=== PATIENT | male | born 1950 | race Two or more races ===

== ENCOUNTER 2021-05-08 10:59 | Inpatient (IN) | payer OTHER, SELFPAY ==
[~2021-05-08] VITALS: Ht 177.8 cm; Wt 96.6 kg
--- NOTE | 2021-05-08 11:05 | NUR ---
BLOOD DRAWN AND SENT TO LAB.
--- NOTE | 2021-05-08 11:10 | NUR ---
AT BEDSIDE FOR DEMETRA.
[2021-05-08] MEDS ORDERED: FUROSEMIDE 40 MG/4 ML VIAL ONE (11:13)
[2021-05-08 11:22] LABS: BASOPHILS # (AUTO) 0.2 K/uL (0.0-0.2); BASOPHILS % (AUTO) 1.8 % (0.0-2.0); EOSINOPHILS % (AUTO) 0.1 % (0.0-6.0); LYMPHOCYTES # (AUTO) 0.4 K/uL (0.8-4.8); MEAN CORPUSCULAR HGB CONC 33 g/dl (31.0-36.0); MEAN CORPUSCULAR VOLUME 85 fL (80-96); MONOCYTES # (AUTO) 0.7 K/uL (0.1-1.30); MONOCYTES % (AUTO) 6.7 % (2.0-12.0); NEUTROPHILS # (AUTO) 9.1 K/uL (1.8-8.9); NEUTROPHILS % (AUTO) 87.4 % (43.0-81.0); PLATELET COUNT (AUTO) 220 K/uL (150-450); RED BLOOD CELL COUNT(AUTO) 7.14 MIL/uL (4.5-6.0); WHITE BLOOD COUNT (AUTO) 10.4 K/uL (4.3-11.0)
[2021-05-08] MEDS ORDERED: DILTIAZEM HCL 25 MG IV ONE (11:24)
--- NOTE | 2021-05-08 11:29 | NUR ---
MEDICATED PER ERMD ORDER, PT DANIELLA WELL. ON TELE AFIB. WILL CONT TO MONITOR.
[2021-05-08] MEDS ORDERED: FUROSEMIDE 40 MG/4 ML VIAL IV ONE (11:30)
[2021-05-08] MEDS ORDERED: DILTIAZEM HCL 50 MG IV IV ONE ×2 (11:30→12:00)
[2021-05-08 11:37] LABS: HEMOGLOBIN 19.7 g/dL (13.5-17.5)
[2021-05-08 11:38] LABS: HEMATOCRIT 61 % (39-51)
[2021-05-08 11:50] LABS: ABG BASE EXCESS -2.9 mmol/L; ABG PCO2 22.1 mmHg (35.0-45.0); ABG PH 7.503 (7.350-7.450); ABG PO2 267.7 mmHg (75.0-100.0); MetHb 0.7 % (0.0-1.5); O2Hb 98.7 % (94.0-97.0); SITE, ABG Right Radial; VENT MODE, BG NRB 15L 100%
[2021-05-08 11:58] LABS: CALCIUM, SERUM 8.6 mg/dL (8.5-10.1); CARBON DIOXIDE 21 mmol/L (21-32); CHLORIDE 97 mmol/L (98-107); CREATININE 1.4 mg/dL (0.6-1.3); GLUCOSE 132 mg/dL (74-106); POTASSIUM 5.6 mmol/L (3.5-5.1); SODIUM SERUM 131 mmol/L (136-145); UREA NITROGEN, BLOOD 33 mg/dL (7-18)
[2021-05-08 12:10] LABS: ALANINE AMINOTRANSFERASE 27 U/L (12-78); ALBUMIN 2.8 g/dL (3.4-5.0); ALKALINE PHOSPHATASE 112 U/L (46-116); ASPARTATE AMINOTRANSFERASE 56 U/L (15-37); BILIRUBIN,DIRECT 1.7 mg/dL (0.0-0.2); BILIRUBIN,TOTAL 3.9 mg/dL (0.2-1.0); TOTAL PROTEIN, SERUM 6.6 g/dL (6.4-8.2)
[2021-05-08] MEDS ORDERED: ZOLPIDEM TARTRATE 5 MG TABLET PO PRN (13:00)
[2021-05-08] MEDS ORDERED: Z GUARD REMEDY 2 OZ OINT TP PRN (13:00)
[2021-05-08] MEDS ORDERED: ONDANSETRON HCL/PF 4 MG/2 ML VIAL IVP PRN (13:00)
[2021-05-08] MEDS ORDERED: MAGNESIUM HYDROXIDE 30 ML UDC PO PRN (13:00)
[2021-05-08] MEDS ORDERED: ASPIRIN EC 81 MG TABLET.DR PO ONE (13:00)
[2021-05-08] MEDS ORDERED: ACETAMINOPHEN 325 MG TABLET PO PRN (13:00)
[2021-05-08] MEDS ORDERED: MAG HYDROX/AL HYDROX/SIMETH 30 ML UDC PO PRN (13:00)
[2021-05-08 13:36] LABS: BAND % (MANUAL) 2 % (0.0-5.0); LYMPHOCYTES % (MANUAL) 9 % (16-48); MONOCYTES % (MANUAL) 5 % (0-11.0); NEUTROPHILS % (MANUAL) 84 (42-76)
--- NOTE | 2021-05-08 13:41 | NUR ---
PT SITTING UP, PT STS THAT HE FEELS A LOT BETTER. DENIES CP, DIZZINESS, N/V AT THIS TIME. WILL CONT TO MONITOR.
[2021-05-08] MEDS ORDERED: PIPERACILLIN /TAZOBACTAM 3.375 G in IV D5W 50 ML IV SCH (14:30)
--- NOTE | 2021-05-08 14:34 | NUR ---
COVID PCR COLLECTED AND SENT TO LAB
--- NOTE | 2021-05-08 15:31 | NUR ---
PT ASLEEP, EASILY AWAKEN BY VERBAL STIMULI. DENIES CP, SOB, DIZZINESS, N/V AT THIS TIME. WILL CONT TO MONITOR.
--- NOTE | 2021-05-08 15:53 | NUR ---
ROOM 106
[2021-05-08 16:00] VITALS: BP 173/88
--- NOTE | 2021-05-08 16:26 | NUR ---
REPORT GIVEN TO COSTA BENSON FOR IRENE
[2021-05-08] MEDS: PIPERACILLIN /TAZOBACTAM 3.375 G in IV D5W 50 ML IV SCH (18:10)
--- NOTE | 2021-05-08 18:26 | NUR ---
RN NOTE RECEIVE REPORT FROM ED NURSE Addendum: 05/08/21 at 1827 by PATRICE PRESTON RN RECEIVE REPORT FROM ED NURSE AT 1646. PATIENT IN STABLE CONDITION WITH NO SIGN OF DISTRESS. WILL CONTINUE TO MONITOR
--- NOTE | 2021-05-08 19:16 | NUR ---
RN CLOSING NOTE PATIENT HAVE BEEN IN STABLE CONDITION AT FROM TIME OF ADMISSION TO THE UNIT. TELE BOX WAS PLACED ON THE PATIENT AND CONFIRM PROPER FUNCTION AND READING WITH TAILOR WOMEN'S GARMENT ALTERATION. PATIENT AMBULATE AND USE URINAL. PATIENT HAVE SHORTNESS OF BREATH. ON 6L/MIN VIA NC. O2 SAT IS 95% AND ABOVE. PROPER ISOLATION PRECAUTION IN PLACE. ALL SAFETY MEASURE IN PLACE. BED ON LOWEST POSITION WITH HOB ELEVATED AND 3 SIDE RAIL UP. CALL LIGHT WITHIN REACH. REPORT WAS GIVEN TO END POLISHER NURSE.
--- NOTE | 2021-05-08 19:35 | NUR ---
RN OPENING NOTE RECEIVED PATIENT RESTING IN BED WITH NO DISTRESS OR DISCOMFORT.PATIENT IS A/O X 4 AND COOPERATIVE. PATIENT ON 6L 02 VIA NC SATURATING AT 97%. PATIENT ON TELE MONITORING, A FIB, WITH HR OF 95. ALL ISOLATION PRECAUTIONS HAVE BEEN TAKEN. ALL SAFETY MEASURE IN PLACE. BED IN LOWEST POSITION WITH HOB ELEVATED AND 3 SIDE RAIL UP. CALL LIGHT WITHIN REACH, AND BED ALARM ON.
[2021-05-08 20:00] VITALS: BP 147/95
--- NOTE | 2021-05-08 23:12 | NUR ---
RN NOTES NOTIFIED ONCALL MD (DR. TALAMANTES) DISCUSSED ABOUT PT'S CURRENT STATUS; AFIB SUSTAINING >120S HR, ADVISED ABOUT MEDS GIVEN IN ER AND CARDIO CONSULT TO BE DONE BY DR. SEAMAN (NOT YET SEEN). ORDER GIVEN :DILTIAZEM 60MG Q6H PO. AERONAUTICAL ENGINEERING OFFICER MADE AWARE. WILL CARRY OUT ORDER.
[2021-05-09] VITALS: BP 136/101
[2021-05-09] MEDS: PIPERACILLIN /TAZOBACTAM 3.375 G in IV D5W 50 ML IV SCH ×4 (00:30→17:17)
[2021-05-09] MEDS: DILTIAZEM HCL 30 MG TABLET PO SCH ×3 (00:41→12:22)
[2021-05-09 04:00] VITALS: BP 155/91
--- NOTE | 2021-05-09 06:19 | NUR ---
RN CLOSING NOTE PATIENT REMAINS IN BED RESTING, WITH NO DISTRESS OR DISCOMFORT.PATIENT IS A/O X 4 AND COOPERATIVE.ON 6L 02 VIA NC SATURATING AT 97%. PATIENT ON TELE MONITORING, A FIB, WITH HR OF 111. ALL ISOLATION PRECAUTIONS HAVE BEEN TAKEN. ALL SAFETY MEASURE IN PLACE, CALL LIGHT WITHIN REACH, BED ALARM ON, BED IN LOWEST POSITION WITH HOB ELEVATED AND 3 SIDE RAIL UP. ALL PATIENT NEEDS MET THROUGHOUT THE SHIFT. WILL ENDORSE PATIENT CARE TO ONCOMING MORNING NURSE.
[2021-05-09 07:10] LABS: BASOPHILS # (AUTO) 0.1 K/uL (0.0-0.2); BASOPHILS % (AUTO) 0.6 % (0.0-2.0); HEMATOCRIT 55 % (39-51); HEMOGLOBIN 18.6 g/dL (13.5-17.5); LYMPHOCYTES # (AUTO) 0.6 K/uL (0.8-4.8); LYMPHOCYTES % (AUTO) 5.4 % (20.0-44.0); MEAN CORPUSCULAR HGB CONC 34 g/dl (31.0-36.0); MEAN CORPUSCULAR VOLUME 84 fL (80-96); MONOCYTES # (AUTO) 0.7 K/uL (0.1-1.30); MONOCYTES % (AUTO) 6.7 % (2.0-12.0); NEUTROPHILS # (AUTO) 9.3 K/uL (1.8-8.9); NEUTROPHILS % (AUTO) 87.3 % (43.0-81.0); PLATELET COUNT (AUTO) 203 K/uL (150-450); RED BLOOD CELL COUNT(AUTO) 6.57 MIL/uL (4.5-6.0); WHITE BLOOD COUNT (AUTO) 10.7 K/uL (4.3-11.0)
--- NOTE | 2021-05-09 07:30 | NUR ---
RN NOTE REPORT REC'D AT BEDSIDE. PT IN BED AWAKE,A/OX4. IN NO ACUTE DISTRESS. ON 6LPM VIA NC SATURATING WELL. IV TO LAC INTACT AND PATENT. NO S/SX OF INFILTRATION NOTED. TELE MONITOR READS AFIB 110. ISOLATION AND SAFETY PRECAUTIONS OBSERVED. WILL MONITOR FOR ANY CHANGE IN CONDITION OTHERWISE PT DENIES ANY NEED AT THIS TIME.
[2021-05-09 07:50] LABS: CALCIUM, SERUM 8.2 mg/dL (8.5-10.1); CARBON DIOXIDE 24 mmol/L (21-32); CHLORIDE 95 mmol/L (98-107); CREATININE 1.5 mg/dL (0.6-1.3); GLUCOSE 87 mg/dL (74-106); MAGNESIUM 2.1 mg/dL (1.8-2.4); POTASSIUM 4.6 mmol/L (3.5-5.1); SODIUM SERUM 130 mmol/L (136-145); UREA NITROGEN, BLOOD 37 mg/dL (7-18)
[2021-05-09 08:00] VITALS: BP 133/89
[2021-05-09] MEDS: ASPIRIN 81 MG TAB.CHEW PO SCH (08:05)
[2021-05-09 12:00] VITALS: BP 152/90
[2021-05-09] MEDS ORDERED: FUROSEMIDE 20 MG/2 ML VIAL IV SCH (14:00)
--- NOTE | 2021-05-09 14:00 | NUR ---
RN NOTE PATIENT SEEN BY HOA CHACON, UPDATED REGARDING PATIENT CURRENT CONDITION.
[2021-05-09] MEDS: VANCOMYCIN 1.25 GM in IV D5W 250 ML IV SCH (14:25)
[2021-05-09 16:00] VITALS: BP 138/63
[2021-05-09] MEDS: METOPROLOL TARTRATE 50 MG TABLET PO SCH ×2 (17:17→21:00)
[2021-05-09] MEDS: APIXABAN 5 MG TABLET PO SCH (17:18)
--- NOTE | 2021-05-09 18:31 | NUR ---
RN NOTE PT'S CONDITION REMAINS THE SAME. AWAKE,ALERT/OX2. STILL ON 6 LPM O2 VIA NC. REMINDS PT NOT TO TAKE OFF O2. PATIENT NEEDS FURTHER TEACHING. TELE MONITOR SHOWS UNCONTROLLED AFIB. DUE MEDS GIVEN ORDERED. NEW IV TO LEFT HAND IS PATENT AND INTACT. CALL LIGHT AND TELEPHONE ARE WITHIN REACH. SAFTY MEASURES OBSERVED AT ALL TIME. WILL ENDORSE CARE TO NOC RN.
[2021-05-09] MEDS: LORAZEPAM INJ 2 MG/ML VIAL IV PRN (18:56)
--- NOTE | 2021-05-09 19:30 | NUR ---
RN NOTES RECEIVED PT FOR CONTINUITY OF CARE. PATIENT A/OX1; VERY LETHARGIC. CURRENTLY ON 6L VIA NC; NOTED LABORED BREATHING; 02 SAT IS >92% AT THE TIME OF RECEIVED. WILL ENSURE SAFETY MEASURES WITHIN THE SHIFT. PATIENT BED ALARM IS ON. HEAD OF BED ELEVATED. BED IS LOCKED, IN LOWEST POSITION AND SIDE RAILS UP. CALL LIGHT WITHIN REACH OF THE PATIENT. APPLICABLE ISOLATION PRECAUTIONS IN PLACE. WILL CONTINUE TO MONITOR AND REASSESS FOR ANY CHANGES AND WILL CARRY OUT ANY ONGOING AND ACTIVE MD ORDER.
[2021-05-09 20:00] VITALS: BP 126/79
--- NOTE | 2021-05-09 20:05 | NUR ---
RN NOTES CALLED LAB AND SPOKE WITH JACY AND F/U FOR COVID RESULT; HE SAID NO RESULT YET. MIGHT BE OUT BY TUESDAY. ABG RESULT OUT FROM RT; SENT TO [facility] (DR.TIM TALAMANTES). RT BUMPED UP O2 FROM 8 TO 10L VIA SIMPLE MASK. SUCTIONING RENDERED. AWAITING FOR CXR RESULT. [facility] (DR. TALAMANTES NOTIFIED) MD ORDERED: BIPAP TITRATION PER RT. RN ACKNOWLEDGED. PRINCIPAL IOS DEVELOPER MADE AWARE. WILL CARRY OUT MD ORDER.
--- NOTE | 2021-05-09 20:45 | NUR ---
RN NOTES NOTED PT'S BREATHING TO BE LABORED 02 SAT AT THIS TIME FLUCTUATES BETWEEN 88-90%; PT SWITCHED FROM NC TO SIMPLE MASK WITH 8L O2. STILL NOTED LABORED BREATHING FROM PT. WILL CONTINUE TO MONITOR AND ASSESS AND WILL NOTIFY [facility] FOR ANY SIGNIFICANT CHANGES. Addendum: 05/09/21 at 2219 by NAKUL LICEA RN @2055 ACCU CHECK DONE - 115MG/DL
--- NOTE | 2021-05-09 21:27 | NUR ---
RN NOTES SCHEDULED LOPRESSOR 50MG NOTGIVEN; PT LETHARGIC RISK FOR ASPIRATION AND WONT BE ABLE TO TOLERATE PO. SOLUTION CONSULTANT MADE AWARE AND MD AWARE.
--- NOTE | 2021-05-09 21:28 | NUR ---
RN NOTES NOTIFIED ONCALL MD ( DR. EMA TALAMANTES) OF CURRENT STATUS OF PT ; PT LETHARGIC, LABORED BREATHING [address] TALAMANTES ORDERED STAT ABG, STAT CXR AND F/U ON COVID RESULT. FAMILY SUPPORT WORKER MADE AWARE, WILL CARRY OUT MD ORDER
[2021-05-09 21:55] LABS: ABG BASE EXCESS -5.2 mmol/L; ABG OXYGEN SATURATION 93.3 % (92.0-98.5); ABG PCO2 46.2 mmHg (35.0-45.0); ABG PH 7.288 (7.350-7.450); ABG PO2 75.8 mmHg (75.0-100.0); AaDO2 243.2 mmHg; COHb 0.3 % (0.5-1.5); MetHb 0.4 % (0.0-1.5); O2Hb 92.6 % (94.0-97.0); SITE, ABG Right Brachial; VENT MODE, BG SIMPLE MASK
--- NOTE | 2021-05-09 23:15 | NUR ---
RN NOTES [facility] (DR. TALAMANTES) F/U FOR CXR RESULT;NO RESULT YET. IMAGE READY BUT NOT YET INTERPRETED. SENT TO [facility] CXR IMAGE AND DR. EMA TALAMANTES ORDERED: BUMEX INJ 1MG/4ML (2MG/8ML) ONCE AND BUMEX 1MG/4M IV IN NS 100ML @10ML/HR AND PLACEMENT OF F/C. BOAT OUTFITTER MADE AWARE. WILL CARRY OUT MD ORDER.
[2021-05-09] MEDS ORDERED: BUMETANIDE INJ 4 MG in IV NS 0.9% 24 ML IV ONE (23:30)
[2021-05-09] MEDS ORDERED: BUMETANIDE INJ 0.25 MG/ML VIAL IV ONE (23:30)
[2021-05-09] MEDS ORDERED: BUMETANIDE INJ 0.25 MG/ML VIAL ONE ×2 (23:34→23:39)
--- NOTE | 2021-05-09 23:45 | NUR ---
RN NOTES NEW IV ACCESS INSERTED @ R HAND #22; SECURED, PATENT AND FLUSHING WELL. STEEPLECHASE JOCKEY MADE AWARE.
[2021-05-10] VITALS: BP 114/68
[2021-05-10] MEDS: PIPERACILLIN /TAZOBACTAM 3.375 G in IV D5W 50 ML IV SCH ×4 (00:07→17:02)
[2021-05-10] MEDS: VANCOMYCIN 1.25 GM in IV D5W 250 ML IV SCH (02:45)
--- NOTE | 2021-05-10 03:29 | NUR ---
RT NOTES Pt has been removed from Bipap. Pt saturating 98 % and s.o.b has subsided. Pt placed back on 8 L simple mask. COSTA Lora notified of change. Pt is currently stable.
--- NOTE | 2021-05-10 03:30 | NUR ---
COSTA NOTES PT SWITCHED BACK TO SIMPLE MASK WITH 8L OF 02 FROM BIPAP DONE BY RT. PT IN STABLE STATUS WITH 02 SAT >95% AT THIS TIME. WILL CONTINUE TO MONITOR AND ASSESS THROUGHOUT THE SHIFT. ALVAREZ SKELTON MADE AWARE. Addendum: 05/10/21 at 0517 by NAKUL LICEA RN INFORMED [facility] (DR. EMA TALAMANTES) THAT ABOUT PT CURRENT STATUS ON SIMPLE MASK SAT >95%; PT STARTS TO REMOVED LINES AND IV ACCESS [facility] ORDERED: SOFT RESTRAINTS AND STAT ABG. ALVAREZ SKELTON MADE AWARE. WILL CARRY OUT ORDER. WILL CONTINUE TO ASSESS AND MONITOR . Addendum: 05/10/21 at 0607 by NAKUL LICEA RN 0600- ABG RESULT CAME OUT; [facility] INFORMED (DR. EMA TALAMANTES) MD ORDERED TO PLACE PT BACK TO BIPAP. RT INFORMED AND ALVAREZ SKELTON MADE AWARE. RT CONNECTED PT TO BIPAP.
[2021-05-10 04:00] VITALS: BP_SYST 114; BP_SYST 145; BP_DIAS 68; BP_DIAS 92
--- NOTE | 2021-05-10 05:10 | NUR ---
RN NOTES ATTEMPTED TO INSERT SEBASTIAN CATH PER MD ORDER; PT SCREAMS SAYING "NO" PT REFUSES. PT STARTED TO BE MORE ALERT AND ORIENTED; SATURATION >96% IN 8L OF 02 VIA SIMPLE MASK. EXPLAINED RISK AND BENEFITS BUT PT STILL REFUSED. RN ACKNOWLEDGED AND QUALITY PROJECT MANAGER MADE AWARE.
[2021-05-10 05:55] LABS: ABG OXYGEN SATURATION 96.3 % (92.0-98.5); ABG PCO2 51.4 mmHg (35.0-45.0); ABG PH 7.264 (7.350-7.450); ABG PO2 93.4 mmHg (75.0-100.0); AaDO2 219.8 mmHg; COHb 0.3 % (0.5-1.5); MetHb 0.5 % (0.0-1.5); O2Hb 95.5 % (94.0-97.0); SITE, ABG Left Radial; VENT MODE, BG SIMPLE MASK
--- NOTE | 2021-05-10 06:47 | NUR ---
RN CLOSING NOTE: PATIENT REMAINS IN ROOM IN NO SIGNS OF RESPIRATORY DISTRESS, PATIENT CURRENTLY ON BIPAP, SETTINGS PRESCRIBED;TOLERATING WELL SATURATING @ >95% SP02. SAFETY MEASURES IMPLEMENTED, BED IN LOWEST POSITION, LOCKED, SIDE RAILS UP, CALL LIGHT WITHIN REACH. ALL NEEDS AND ORDERS ADDRESSED DURING THE SHIFT. IV ACCESS MAINTAINED INTACT, SECURED AND FLUSHING WELL. ALL DUE MEDS GIVEN ORDERED & SCHEDULED ; PATIENT TOLERATED WELL. PATIENT KEPT CLEAN AND COMFORTABLE WITHIN THE SHIFT. PATIENT ENDORSED TO INCOMING SHIFT RN WITH STABLE VITAL SIGN AND FOR CONTINUITY OF CARE.
--- NOTE | 2021-05-10 07:30 | NUR ---
TD RN AM NOTE: PATIENT IN BED, RESPONDS TO DEEP PAIN, LETHARGIC, ON RESCUE BIPAP, 18/5 52% FIO2, NOT IN ANY DISTRESS, TOLERATING WELL SATURATING @ >95% SP02. AFIB HR 96, NO SIGNS OF DISCOMFORT, RT H AND IV ACCESS, FLUSHES WELL, SITE CLEAR. CARDIAC DIET. SOFT WRIST RESTRAINT RELEASED AND CHECKED FOR PULSE AND CIRCULATION THEN EVERY 2 HOURS. SEE NURSING FLOWSHEET FOR SKIN ISSUES. SAFETY MEASURES IMPLEMENTED, BED IN LOWEST POSITION, LOCKED, SIDE RAILS UP, CALL LIGHT WITHIN REACH. WILL CONT TO MONITOR.
[2021-05-10 08:00] VITALS: BP 137/70
[2021-05-10] MEDS: METOPROLOL TARTRATE 50 MG TABLET PO SCH (08:33)
[2021-05-10] MEDS: ASPIRIN 81 MG TAB.CHEW PO SCH (08:33)
[2021-05-10] MEDS: APIXABAN 5 MG TABLET PO SCH (08:34)
[2021-05-10 08:38] LABS: BASOPHILS % (AUTO) 0.4 % (0.0-2.0); EOSINOPHILS % (AUTO) 0.1 % (0.0-6.0); HEMATOCRIT 51 % (39-51); HEMOGLOBIN 17.2 g/dL (13.5-17.5); LYMPHOCYTES # (AUTO) 0.6 K/uL (0.8-4.8); LYMPHOCYTES % (AUTO) 6.5 % (20.0-44.0); MEAN CORPUSCULAR HGB CONC 34 g/dl (31.0-36.0); MEAN CORPUSCULAR VOLUME 84 fL (80-96); MONOCYTES # (AUTO) 0.7 K/uL (0.1-1.30); MONOCYTES % (AUTO) 8.6 % (2.0-12.0); NEUTROPHILS # (AUTO) 7.1 K/uL (1.8-8.9); NEUTROPHILS % (AUTO) 84.4 % (43.0-81.0); PLATELET COUNT (AUTO) 166 K/uL (150-450); RED BLOOD CELL COUNT(AUTO) 6.04 MIL/uL (4.5-6.0); WHITE BLOOD COUNT (AUTO) 8.4 K/uL (4.3-11.0)
[2021-05-10] MEDS ORDERED: FUROSEMIDE 40 MG/4 ML VIAL IV SCH (09:00)
--- NOTE | 2021-05-10 09:20 | NUR ---
TD RN NOTES DR. MASON NOTIFIED PATIENT POSITIVE FOR COVID AND IS ON RESCUE BIPAP 18/5 52% FIO2. IF PATIENT COULD BE TRANSFERRED TO ICU.
[2021-05-10 09:22] LABS: CALCIUM, SERUM 7.7 mg/dL (8.5-10.1); CARBON DIOXIDE 22 mmol/L (21-32); CHLORIDE 95 mmol/L (98-107); CREATININE 2.8 mg/dL (0.6-1.3); GLUCOSE 99 mg/dL (74-106); POTASSIUM 4.3 mmol/L (3.5-5.1); SODIUM SERUM 128 mmol/L (136-145); UREA NITROGEN, BLOOD 53 mg/dL (7-18)
--- NOTE | 2021-05-10 10:21 | NUR ---
TD RN NOTES DR. MASON NOTIFIED PATIENT POSITIVE FOR COVID AND IS ON RESCUE BIPAP 18/5 52% FIO2. PER HOA CHACON, TRANSFER PATIENT TO ICU. PER DR. MASON, CHANGE TO NON REBREATHER MASK.
[2021-05-10 10:38] LABS: FERRITIN 3729 ng/mL (8-388)
--- NOTE | 2021-05-10 10:46 | NUR ---
RN NOTES PATIENT EVALUATED BY ICU CHARGE - AALIYAH, DISCUSSED WITH HOA CHACON KILN PACKER, PATIENT IS PLACED ON MASK, HOLDING ON ACCORDING TO ICU CHARGE, CANCEL ICU TRANSFER FOR NOW.
--- NOTE | 2021-05-10 10:52 | NUR ---
TD RN NOTES PATIENT AWAKE, PLACED ON NON REBREATHER MASK AT15L FI02 100%.
[2021-05-10] MEDS: DEXAMETHASONE SOD PHOSPHATE 10 MG/ML VIAL IV SCH (11:27)
[2021-05-10 11:28] LABS: ABG BASE EXCESS -3.1 mmol/L; ABG PO2 187.8 mmHg (75.0-100.0); AaDO2 482.2 mmHg; COHb 0.3 % (0.5-1.5); MetHb 0.6 % (0.0-1.5); O2Hb 98.1 % (94.0-97.0); SITE, ABG Right Radial; VENT MODE, BG NON REBREATHER
[2021-05-10 12:00] VITALS: BP 119/77
--- NOTE | 2021-05-10 12:10 | NUR ---
RN NOTES PATIENT CONTINUES TO REFUSE SEBASTIAN CATH. PLACED CONDOM CATHETER INSTEAD.
[2021-05-10] MEDS: METOPROLOL TARTRATE INJ 5 MG/5 ML AMPUL IVP SCH ×2 (14:11→21:20)
[2021-05-10 16:00] VITALS: BP 134/76
--- NOTE | 2021-05-10 18:39 | NUR ---
TD RN CLOSING NOTE: PATIENT IN BED, ASLEEP, RESPONDS TO NAME AND TOUCH, MORE AWAKE NOW. REMAINS LETHARGIC, ON NRM 15L FIO2 100%, NOT IN ANY DISTRESS, TOLERATING WELL SATURATING @ 92-97%. AFIB HR 9Os, DR. SEAMAN AWARE. NO SIGNS OF DISCOMFORT, RT H AND IV ACCESS, FLUSHES WELL, SITE CLEAR. 1:1 FEEDER, ICE CHIPS FOR NOW. SOFT WRIST RESTRAINT RELEASED AND CHECKED FOR PULSE EVERY 2 HOURS. PM CARE DONE, TURNED AND REPOSITIONED Q2 HOURS. HOB ELEVATED 30DEG AT ALL TIMES. ISOLATION PRECAUTION OBSERVED. SAFETY MEASURES IMPLEMENTED, BED IN LOWEST POSITION, LOCKED, SIDE RAILS UP, CALL LIGHT WITHIN REACH. ALL NEEDS MET AT THIS TIME. NO OTHER SIGNIFICANT CHANGE IN CONDITION. WILL ENDORSE TO NEXT SHIFT FOR IRENE.
[2021-05-10 20:00] VITALS: BP 114/84
[2021-05-10] MEDS: HEPARIN SODIUM, PORCINE 5000 UNITS/1 ML VIAL SQ SCH (21:21)
[2021-05-11] VITALS: BP 134/69
[2021-05-11] MEDS ORDERED: VANCOMYCIN 1.25 GM in IV D5W 250 ML IV SCH (02:00)
[2021-05-11] MEDS: METOPROLOL TARTRATE INJ 5 MG/5 ML AMPUL IVP SCH ×4 (02:05→21:11)
[2021-05-11] MEDS ORDERED: SCOPOLAMINE PATCH 1 MG/72HR TD ONE ×2 (03:38→03:39)
[2021-05-11] MEDS ORDERED: METOCLOPRAMIDE HCL 10 MG/2 ML VIAL ONE (03:39)
[2021-05-11 04:00] VITALS: BP 113/68
[2021-05-11] MEDS: PIPERACILLIN /TAZOBACTAM 3.375 G in IV D5W 50 ML IV SCH ×3 (05:18→11:08)
[2021-05-11 07:14] LABS: BASOPHILS % (AUTO) 0.2 % (0.0-2.0); EOSINOPHILS % (AUTO) 0.1 % (0.0-6.0); HEMATOCRIT 53 % (39-51); HEMOGLOBIN 17.9 g/dL (13.5-17.5); LYMPHOCYTES # (AUTO) 0.5 K/uL (0.8-4.8); LYMPHOCYTES % (AUTO) 4.3 % (20.0-44.0); MEAN CORPUSCULAR HGB CONC 34 g/dl (31.0-36.0); MEAN CORPUSCULAR VOLUME 84 fL (80-96); MONOCYTES # (AUTO) 0.8 K/uL (0.1-1.30); NEUTROPHILS # (AUTO) 9.5 K/uL (1.8-8.9); NEUTROPHILS % (AUTO) 88.4 % (43.0-81.0); PLATELET COUNT (AUTO) 182 K/uL (150-450); RED BLOOD CELL COUNT(AUTO) 6.39 MIL/uL (4.5-6.0); WHITE BLOOD COUNT (AUTO) 10.7 K/uL (4.3-11.0)
--- NOTE | 2021-05-11 07:20 | NUR ---
TD RN CLOSING NOTE, PATIENT IN BED, AWAKE AT THIS TIME, ON NRM AT 15LPM, TOLERATED WELL, NO SOB/ACUTE DISTRESS, NOTED, WITH O2 >94% CONTINUE CONTROLLED AFIB IN THE TELE MONITOR WITH HR 70-100s, IV SITE IN LEFT HAND, PATENT AND INTACT, BILATERAL SOFT WRIST RESTRAINT IN PLACED, NO ABNORMALITY NOTED, NO CIRCULATION COMPROMISED, FREQUENT CHECKS DURING THE NIGHT, RELEASED AND CHECKED FOR PULSE EVERY 2 HOURS. PM CARE DONE, HOB ELEVATED ALL TIMES, ISOLATION PRECAUTION FOR COVID OBSERVED, ALL SAFETY MEASURES IN PLACED, BED IN LOWEST POSITION, LOCKED, SIDE RAILS UP X2, CALL LIGHT WITHIN REACH. WILL ENDORSE CONTINUITY OF CARE TO ONCOMING NURSE.C.
--- NOTE | 2021-05-11 07:35 | NUR ---
RN OPENING NOTES; RECEIVED PT IN BED, A/OX2-3. PT HAS NO SOB OR DISTRESS NOTED AT THIS TIME. PT HAS NO C/O PAIN AT THIS TIME. PT ON NRB AT 15L SATING AT 98%. AC #22 NOTED, FLUSHED, PATENT, WITH NO SIGNS OF INFILTRATION. ALL SAFETY MEASURES RENDERED, BED IN LOWEST POS. LOCKED, RAILS X3 WITH CALL LIGHT WITHIN REACH. WILL CONTINUE TO MONITOR.
[2021-05-11 07:39] LABS: CALCIUM, SERUM 7.5 mg/dL (8.5-10.1); CARBON DIOXIDE 23 mmol/L (21-32); CHLORIDE 96 mmol/L (98-107); CREATININE 3.6 mg/dL (0.6-1.3); GLUCOSE 129 mg/dL (74-106); POTASSIUM 4.3 mmol/L (3.5-5.1); SODIUM SERUM 131 mmol/L (136-145); UREA NITROGEN, BLOOD 72 mg/dL (7-18)
[2021-05-11 08:00] VITALS: BP 103/70
[2021-05-11] MEDS: ASPIRIN 81 MG TAB.CHEW PO SCH (08:15)
[2021-05-11] MEDS: DEXAMETHASONE SOD PHOSPHATE 10 MG/ML VIAL IV SCH (08:15)
[2021-05-11] MEDS: HEPARIN SODIUM, PORCINE 5000 UNITS/1 ML VIAL SQ SCH (08:15)
[2021-05-11] MEDS: APIXABAN 2.5 MG TABLET PO SCH ×2 (11:55→16:08)
[2021-05-11 12:00] VITALS: BP 125/69
[2021-05-11] MEDS: ENSURE ENLIVE 237 ML LIQUID (VANILLA) PO SCH ×2 (13:52→16:16)
[2021-05-11 16:00] VITALS: BP 105/81
[2021-05-11] MEDS ORDERED: PIPERACILLIN /TAZOBACTAM 3.375 G in IV D5W 100 ML IV SCH (18:00)
--- NOTE | 2021-05-11 18:31 | NUR ---
RN CLOSING NOTES; PT IN BED IN SUPINE POS. PT A/OX2, NO SOB OR DISTRESS NOTED. PT DOWNGRADED TO TELEMETRY. PT HAS NO C/O PAIN AT THIS TIME. PT IS ON NC AT 6LPM, AND TOLERATING WELL. PT SATING AT 94-98%. ALL MEDICATIONS GIVEN AND TOLERATED WELL. PT KEPT CLEAN, DRY AND COMFORTABLE. ALL SAFETY MEASURES RENDERED, BED LOCKED, IN LOWEST POSITION, SIDE RAILS X3, WITH CALL LIGHT WITHIN REACH. WILL ENDORSE TO NETWORKING ADMINISTRATOR RN. NO SIGNIFICANT CHANGES IN PT HEALTH STATUS. PT IN STABLE CONDITION.
[2021-05-11 20:00] VITALS: BP 134/76
[2021-05-11] MEDS ORDERED: CEFEPIME 1 GM VIAL ONE (21:36)
[2021-05-11] MEDS: CEFEPIME 1 GM in IV D5W 50 ML IV SCH (21:40)
[2021-05-12] VITALS: BP 116/75
[2021-05-12] MEDS: METOPROLOL TARTRATE INJ 5 MG/5 ML AMPUL IVP SCH ×4 (02:18→20:30)
[2021-05-12 04:00] VITALS: BP 135/82
--- NOTE | 2021-05-12 06:58 | NUR ---
RN NOTES, PATIENT IN BED, ASLEEP AT THIS TIME, ON 5LPM VIA NC WITH O2 >92%, BUT DESATURATES WHEN MOVEMENT, , NO SOB/ACUTE DISTRESS, NOTED, CONTINUE CONTROLLED AFIB IN THE TELE MONITOR WITH HR 60-90S, NO SIGNIFICANT CHANGE IN CONDITION, HOB ELEVATED ALL TIMES, ISOLATION PRECAUTION FOR COVID OBSERVED, ALL SAFETY MEASURES IN PLACED, BED IN LOWEST POSITION AND LOCKED SIDE RAILS UP X2, CALL LIGHT WITHIN REACH. WILL ENDORSE CONTINUITY OF CARE TO ONCOMING NURSE.
--- NOTE | 2021-05-12 07:25 | NUR ---
RN OPENING NOTES; RECEIVED PT IN BED, A/OX2. PT HAS NO SOB OR DISTRESS NOTED AT THIS TIME. PT HAS NO C/O PAIN AT THIS TIME. PT ON NC @6LPM SATING AT 96%. AC #22 NOTED, FLUSHED, PATENT, WITH NO SIGNS OF INFILTRATION. ALL SAFETY MEASURES RENDERED, BED IN LOWEST POS. LOCKED, RAILS X3 WITH CALL LIGHT WITHIN REACH. WILL CONTINUE TO MONITOR.
[2021-05-12 07:41] LABS: BASOPHILS % (AUTO) 0.2 % (0.0-2.0); HEMATOCRIT 53 % (39-51); HEMOGLOBIN 17.7 g/dL (13.5-17.5); LYMPHOCYTES # (AUTO) 0.7 K/uL (0.8-4.8); LYMPHOCYTES % (AUTO) 5.3 % (20.0-44.0); MEAN CORPUSCULAR HGB CONC 33 g/dl (31.0-36.0); MEAN CORPUSCULAR VOLUME 83 fL (80-96); MONOCYTES # (AUTO) 1.2 K/uL (0.1-1.30); MONOCYTES % (AUTO) 9.3 % (2.0-12.0); NEUTROPHILS # (AUTO) 11.3 K/uL (1.8-8.9); NEUTROPHILS % (AUTO) 85.2 % (43.0-81.0); PLATELET COUNT (AUTO) 180 K/uL (150-450); RED BLOOD CELL COUNT(AUTO) 6.43 MIL/uL (4.5-6.0); WHITE BLOOD COUNT (AUTO) 13.2 K/uL (4.3-11.0)
[2021-05-12 08:00] VITALS: BP 147/90
[2021-05-12 08:30] LABS: ALANINE AMINOTRANSFERASE 288 U/L (12-78); ALKALINE PHOSPHATASE 93 U/L (46-116); ASPARTATE AMINOTRANSFERASE 425 U/L (15-37); BILIRUBIN,DIRECT 1.4 mg/dL (0.0-0.2); CALCIUM, SERUM 7.4 mg/dL (8.5-10.1); CARBON DIOXIDE 24 mmol/L (21-32); CHLORIDE 96 mmol/L (98-107); GLUCOSE 145 mg/dL (74-106); POTASSIUM 4.1 mmol/L (3.5-5.1); SODIUM SERUM 133 mmol/L (136-145); TOTAL PROTEIN, SERUM 5.2 g/dL (6.4-8.2)
[2021-05-12] MEDS: CEFEPIME 1 GM in IV D5W 50 ML IV SCH ×2 (08:32→21:00)
[2021-05-12] MEDS: ASPIRIN 81 MG TAB.CHEW PO SCH (08:33)
[2021-05-12] MEDS: DEXAMETHASONE SOD PHOSPHATE 10 MG/ML VIAL IV SCH (08:34)
[2021-05-12] MEDS: APIXABAN 2.5 MG TABLET PO SCH ×2 (08:34→16:04)
[2021-05-12] MEDS: ENSURE ENLIVE 237 ML LIQUID (VANILLA) PO SCH ×2 (08:35→16:03)
[2021-05-12] MEDS ORDERED: CEFEPIME 1 GM in IV D5W 50 ML IV SCH (09:00)
[2021-05-12] MEDS ORDERED: VANCOMYCIN HCL 0.75 GM in IV D5W 250 ML IV SCH (09:00)
[2021-05-12 09:01] LABS: UREA NITROGEN, BLOOD 91 mg/dL (7-18)
--- NOTE | 2021-05-12 09:34 | NUR ---
RN NOTES; LAB CALLED BUN 91. PADMA CHACON AWARE. DR. LUJAN NOTIFIED.
[2021-05-12 12:00] VITALS: BP 138/74
[2021-05-12] MEDS: LORAZEPAM 0.5 MG TABLET PO PRN (15:23)
[2021-05-12 15:35] LABS: ABG BASE EXCESS -0.1 mmol/L; ABG OXYGEN SATURATION 93.6 % (92.0-98.5); ABG PCO2 38.6 mmHg (35.0-45.0); ABG PH 7.415 (7.350-7.450); ABG PO2 69.5 mmHg (75.0-100.0); AaDO2 200.2 mmHg; COHb 0.2 % (0.5-1.5); MetHb 0.3 % (0.0-1.5); O2Hb 93.1 % (94.0-97.0); SITE, ABG Right Radial; VENT MODE, BG nasal cannula
[2021-05-12 16:00] VITALS: BP 130/70
--- NOTE | 2021-05-12 18:22 | NUR ---
RN CLOSING NOTES PT A/OX1-2. PT IN BED IN SEMI FOWLERS POS. PT HAD EPISODES OF CONFUSION. ABG DONE, WNL. ALL MEDICATIONS GIVEN AND TOLERATED WELL. PT ON 02 VIA NC SATING BETWEEN 90-95%. HUNTER ML #18 INSERTED. PT KEPT CLEAN, DRY AND COMFORTABLE. ALL SAFETY MEASURES RENDERED, BED IN LOWEST POS. LOCKED, BEDRAILS X3 WITH CALL LIGHT WITHIN REACH. WILL ENDORSE TO CERAMIC SAW TENDER RN. NO SIGNIFICANT CHANGES IN PT HEALTH STATUS DURING SHIFT. PT IN STABLE CONDITION.
--- NOTE | 2021-05-12 19:48 | NUR ---
RN OPENING NOTES RECEIVED PATIENT IN BED RESTING, A/OX 2 IN SEMI FOWLERS WITH NO S/S OF DISTRESS OR DISCOMFORT. PATIENT ON O2 VIA NC SATURATING 88%. HUNTER #18 G MIDLINE NOTED, FLUSHED AND PATENT. PATIENT ON COVID ISOLATION PRECAUTIONS, PATIENT ON TELE MONITOR WITH HR OF 92. BED IN LOWEST POSITION, CALL LIGHT WITHIN REACH, SIDE RAILS UP X3 LOCKED, BED ALARM ON.
[2021-05-12 20:00] VITALS: BP 144/82
[2021-05-13] VITALS: BP 147/91
[2021-05-13] MEDS ORDERED: IV NS 0.9% 500 ML IV ONE
[2021-05-13] MEDS: METOPROLOL TARTRATE INJ 5 MG/5 ML AMPUL IVP SCH ×4 (02:41→20:59)
[2021-05-13 02:44] LABS: BILIRUBIN,URINE NEGATIVE (NEGATIVE); COLOR,URINE YELLOW (YELLOW); LEUKOCYTE ESTERASE ,URINE NEGATIVE (NEGATIVE); NITRITE, URINE NEGATIVE (NEGATIVE); PH,URINE 5.5 (5.0-8.0); PROTEIN,URINE NEGATIVE (NEGATIVE); UGLUCOSE NEGATIVE (NEGATIVE); UROBILINOGEN,URINE 0.2 EU/dL (0.2)
[2021-05-13 02:57] LABS: BACTERIA,URINE Few /HPF (None Seen); SQUAMOUS EPITHELIAL CELL,UR Rare /HPF (None Seen)
[2021-05-13 03:06] LABS: CREATININE, URINE 55.5 MG/DL (30.0-125.0); URINE TOTAL PROTEIN 31.9 mg/dL (0-11.9)
[2021-05-13 03:57] LABS: EOSINOPHIL,URINE None Seen
[2021-05-13 04:00] VITALS: BP 158/80
--- NOTE | 2021-05-13 06:03 | NUR ---
RN CLOSING NOTES PATIENT REMAINS IN BED PT IN BED IN SEMI FOWLERS POS. PT HAD EPISODES OF CONFUSION. HAD REMOVED THE HUNTER MIDLINE, HOWEVER LEFT HAND IV ACCESS SITE IS PATENT AND PROPERLY FUNCTIONING. CURRENTLY IV SITE RUNNING 75ML NS PER DR. LEIVA NEW ORDERS. URINE SAMPLE SENT TO LAB PER ORDERS DURING SHIFT. PATIENT REMAINS ON 6 L OF O2 ON NC AND IS SATURATING AT 95%. PATIENT REMAINS ON TELE MONITOR WITH HR OF 94. PATIENT IN NO DISTRESS OR DISCOMFORT. ALL PATIENT NEEDS MET THROUGHOUT THE SHIFT, ALL COVID ISOLATION PRECAUTIONS TAKEN, AND ENVIRONMENTAL SAFETY MEASURES TAKEN.CALL LIGHT WITHIN REACH, BED ALARM ON, BED LOCK, AND SIDE RAILS UP X3.
[2021-05-13 06:28] LABS: BASOPHILS % (AUTO) 0.1 % (0.0-2.0); EOSINOPHILS % (AUTO) 0.1 % (0.0-6.0); HEMATOCRIT 49 % (39-51); HEMOGLOBIN 16.5 g/dL (13.5-17.5); LYMPHOCYTES # (AUTO) 0.5 K/uL (0.8-4.8); LYMPHOCYTES % (AUTO) 4.6 % (20.0-44.0); MEAN CORPUSCULAR HGB CONC 34 g/dl (31.0-36.0); MEAN CORPUSCULAR VOLUME 83 fL (80-96); MONOCYTES # (AUTO) 1.2 K/uL (0.1-1.30); MONOCYTES % (AUTO) 10.4 % (2.0-12.0); NEUTROPHILS # (AUTO) 9.9 K/uL (1.8-8.9); NEUTROPHILS % (AUTO) 84.8 % (43.0-81.0); PLATELET COUNT (AUTO) 137 K/uL (150-450); RED BLOOD CELL COUNT(AUTO) 5.93 MIL/uL (4.5-6.0); WHITE BLOOD COUNT (AUTO) 11.7 K/uL (4.3-11.0)
[2021-05-13 07:30] LABS: CALCIUM, SERUM 7.9 mg/dL (8.5-10.1); CARBON DIOXIDE 26 mmol/L (21-32); CHLORIDE 99 mmol/L (98-107); GLUCOSE 160 mg/dL (74-106); POTASSIUM 4.1 mmol/L (3.5-5.1); SODIUM SERUM 137 mmol/L (136-145)
[2021-05-13 07:44] LABS: UREA NITROGEN, BLOOD 104 mg/dL (7-18)
--- NOTE | 2021-05-13 07:54 | NUR ---
RN OPENING NOTE PATIENT RECEIVED IN BED, RESTING. PATIENT ON 6L O2 NC WITH NO SIGNS OF LABORED BREATHING AT THIS TIME AND SATURATING 93%. LEFT HAND 22G PIV IN PLACE, PATENT WITH NO SIGNS OF INFILTRATION AND RUNNING NS AT 75 CC/HR. NO SIGNS OF DISTRESS NOTED AT THIS TIME. BED LOCKED AND IN LOWEST POSITION, CALL LIGHT WITHIN REACH, 3 SIDE RAILS UP. ALL SAFETY MEASURES IMPLEMENTED. WILL CONTINUE TO MONITOR.
[2021-05-13 08:00] VITALS: BP 148/91
[2021-05-13] MEDS: CEFEPIME 1 GM in IV D5W 50 ML IV SCH ×2 (08:32→21:00)
[2021-05-13] MEDS: DEXAMETHASONE SOD PHOSPHATE 10 MG/ML VIAL IV SCH (08:32)
[2021-05-13] MEDS: ASPIRIN 81 MG TAB.CHEW PO SCH (08:32)
[2021-05-13] MEDS: APIXABAN 2.5 MG TABLET PO SCH ×2 (08:33→16:48)
[2021-05-13] MEDS: ENSURE ENLIVE 237 ML LIQUID (VANILLA) PO SCH ×2 (08:34→16:48)
--- NOTE | 2021-05-13 08:51 | NUR ---
WOUND CARE CONSULT: REVIEWED CHART, NURSING DOCUMENTATION AND PHOTOS WHICH INDICATE MULTIPLE SCRATCH ELIZABETH, SCARS, DISCOLORATIONS AND WOUND TO LEFT LOWER LEG WITH SWELLING/REDNESS, PRESENT ON ADMISSION. DPM CONSULT CALLED TO DR APONTE. RECOMMENDATIONS MADE FOR SKIN PROTECTION. DISCUSSED WITH NURSING STAFF. MD IN AGREEMENT WITH PLAN OF CARE.
--- NOTE | 2021-05-13 11:10 | NUR ---
RN NOTE ELEVATED BUN VALUE REPORTED TO POLISHING MACHINE TENDER AVIVA, NO NEW ORDER AT THIS TIME. WILL CONTINUE TO MONITOR.
[2021-05-13 12:00] VITALS: BP 146/89
[2021-05-13 16:00] VITALS: BP 136/88
--- NOTE | 2021-05-13 18:34 | NUR ---
RN CLOSING NOTE PATIENT REMAINS IN BED, RESTING. PATIENT ON 6L O2 NC WITH NO SIGNS OF LABORED BREATHING AT THIS TIME AND SATURATING 94%. LEFT HAND 22G PIV IN PLACE, PATENT WITH NO SIGNS OF INFILTRATION. NO SIGNS OF DISTRESS NOTED AT THIS TIME. ALL NEEDS ATTENDED DURING SHIFT. BED LOCKED AND IN LOWEST POSITION, CALL LIGHT WITHIN REACH, 3 SIDE RAILS UP. ALL SAFETY MEASURES IMPLEMENTED. WILL ENDORSE TO PAD TUFTER NURSE.
--- NOTE | 2021-05-13 19:35 | NUR ---
RN NOTES RECEIVED PT FOR CONTINUITY OF CARE. PATIENT A/OX3-4 IN NO S/SX OF ACUTE DISTRESS AT THIS TIME; CURRENTLY ON 6L 2 VIA NC; WITH 02 SAT >92% AT THIS TIME. WILL ENSURE SAFETY MEASURES WITHIN THE SHIFT. PATIENT BED ALARM IS ON. HEAD OF BED ELEVATED. BED IS LOCKED, IN LOWEST POSITION AND SIDE RAILS UP. CALL LIGHT WITHIN REACH OF THE PATIENT. APPLICABLE ISOLATION PRECAUTIONS IN PLACE. WILL CONTINUE TO MONITOR AND REASSESS FOR ANY CHANGES AND WILL CARRY OUT ANY ONGOING AND ACTIVE MD ORDER.
[2021-05-13 20:00] VITALS: BP 154/92
[2021-05-13] MEDS: LORAZEPAM INJ 2 MG/ML VIAL IV PRN (23:32)
[2021-05-14] VITALS: BP 153/89
[2021-05-14] MEDS: METOPROLOL TARTRATE INJ 5 MG/5 ML AMPUL IVP SCH ×4 (02:20→20:36)
[2021-05-14 04:00] VITALS: BP 155/91
--- NOTE | 2021-05-14 06:49 | NUR ---
RN CLOSING NOTE: PATIENT REMAINS IN ROOM IN NO SIGNS OF RESPIRATORY DISTRESS, PATIENT STILL ON 6L OF 02 VIA NC;TOLERATING WELL SATURATING @ >92% SP02. SAFETY MEASURES IMPLEMENTED, BED IN LOWEST POSITION, LOCKED, SIDE RAILS UP, CALL LIGHT WITHIN REACH. ALL NEEDS AND ORDERS ADDRESSED DURING THE SHIFT. IV ACCESS MAINTAINED INTACT, SECURED AND FLUSHING WELL. ALL DUE MEDS GIVEN ORDERED & SCHEDULED; PATIENT TOLERATED WELL. PATIENT KEPT CLEAN AND COMFORTABLE WITHIN THE SHIFT. PATIENT ENDORSED TO INCOMING SHIFT RN WITH STABLE VITAL SIGN AND FOR CONTINUITY OF CARE.
[2021-05-14 08:00] VITALS: BP 149/83
--- NOTE | 2021-05-14 08:02 | NUR ---
RN OPENING NOTES: RECEIVED PATIENT IN BED, A/OX3. NO SOB OR DISTRESS NOTED AT THIS TIME. PT HAS NO C/O PAIN AT THIS TIME. PT ON NC @6LPM SATING AT 93%. IV ACCESS ON L HAND #20, FLUSHED, PATENT, WITH NO SIGNS OF INFILTRATION. ALL SAFETY MEASURES IMPLEMENTED, BED IN LOWEST POSITION LOCKED, RAILS X3 WITH CALL LIGHT WITHIN REACH. WILL CONTINUE TO MONITOR.
[2021-05-14 08:03] LABS: CALCIUM, SERUM 8.3 mg/dL (8.5-10.1); CARBON DIOXIDE 27 mmol/L (21-32); CHLORIDE 101 mmol/L (98-107); CREATININE 3.6 mg/dL (0.6-1.3); GLUCOSE 166 mg/dL (74-106); POTASSIUM 4.1 mmol/L (3.5-5.1); SODIUM SERUM 136 mmol/L (136-145)
[2021-05-14 08:13] LABS: BASOPHILS % (AUTO) 0.1 % (0.0-2.0); HEMATOCRIT 47 % (39-51); HEMOGLOBIN 15.7 g/dL (13.5-17.5); LYMPHOCYTES # (AUTO) 0.6 K/uL (0.8-4.8); MEAN CORPUSCULAR HGB CONC 33 g/dl (31.0-36.0); MEAN CORPUSCULAR VOLUME 83 fL (80-96); MONOCYTES # (AUTO) 1.1 K/uL (0.1-1.30); MONOCYTES % (AUTO) 9.2 % (2.0-12.0); NEUTROPHILS # (AUTO) 10.1 K/uL (1.8-8.9); NEUTROPHILS % (AUTO) 85.7 % (43.0-81.0); PLATELET COUNT (AUTO) 149 K/uL (150-450); RED BLOOD CELL COUNT(AUTO) 5.69 MIL/uL (4.5-6.0); WHITE BLOOD COUNT (AUTO) 11.7 K/uL (4.3-11.0)
[2021-05-14] MEDS: ASPIRIN 81 MG TAB.CHEW PO SCH (08:25)
[2021-05-14] MEDS: MUPIROCIN OINT 2% 22 GM TUBE TP SCH (08:25)
[2021-05-14] MEDS: CEFEPIME 1 GM in IV D5W 50 ML IV SCH ×2 (08:25→20:33)
[2021-05-14] MEDS: APIXABAN 2.5 MG TABLET PO SCH ×2 (08:27→16:47)
[2021-05-14 08:41] LABS: UREA NITROGEN, BLOOD 107 mg/dL (7-18)
[2021-05-14] MEDS: ENSURE ENLIVE 237 ML LIQUID (VANILLA) PO SCH ×2 (09:19→16:48)
[2021-05-14] MEDS: DEXAMETHASONE SOD PHOSPHATE 10 MG/ML VIAL IV SCH (09:21)
[2021-05-14 10:58] LABS: LYMPHOCYTES % (MANUAL) 5 % (16-48); MONOCYTES % (MANUAL) 8 % (0-11.0); NEUTROPHILS % (MANUAL) 87 (42-76)
[2021-05-14 12:00] VITALS: BP 141/88
[2021-05-14] MEDS: DOXYCYCLINE HYCLATE (100 MG) 100 MG TABLET PO SCH ×2 (13:07→20:33)
[2021-05-14 16:00] VITALS: BP 143/92
--- NOTE | 2021-05-14 18:54 | NUR ---
RN CLOSING NOTE: PATIENT REMAINS IN STABLE CONDITION THROUGHOUT SHIFT. PATIENT IN NO SIGNS OF RESPIRATORY DISTRESS, PATIENT STILL ON 6L OF 02 VIA NC;TOLERATING WELL SATURATING @ >92% SP02. IV ACCESS ON LEFT HAND G#20 MAINTAINED INTACT, PATENT AND FLUSHING WELL. ALL DUE MEDS GIVEN, TOLERATED WELL. KEPT PATIENT CLEAN AND DRY. WOUND CARE RENDERED ORDERED, TOLERATED WELL. SAFETY MEASURES IMPLEMENTED, BED IN LOWEST POSITION, LOCKED, SIDE RAILS UP, CALL LIGHT WITHIN REACH. WILL ENDORSE TO FUEL CELL BATTERY TECHNICIAN NURSE FOR CONTINUITY OF CARE.
--- NOTE | 2021-05-14 19:30 | NUR ---
CAR DELIVERER OPENING NOTES: RECEIVED PATIENT FROM DAY SHIFT, PATIENT IN BED, A/O X3, TELE MONITORS HOWS CONTROLLED A. FIB., PATIENT ON NC, 6L, SATURATING 96%, NO SIGNS OF DISTRESS, NO SOB, BED LOCKED AND IN POSITION, SIDE RAILS UP X2, BED AT LOWEST POSITION, CALL LIGHT WITHIN REACH, WILL CONTINUE TO MONITOR AND ADMINISTER NURSING INTERVENTIONS NECESSARY.
[2021-05-14 20:00] VITALS: BP 156/93
[2021-05-15] VITALS: BP 152/101
[2021-05-15] MEDS: LORAZEPAM 0.5 MG TABLET PO PRN (00:20)
[2021-05-15] MEDS: IV NS 0.9% 1,000 ML IV SCH ×2 (00:47→13:05)
[2021-05-15] MEDS: METOPROLOL TARTRATE INJ 5 MG/5 ML AMPUL IVP SCH ×4 (01:37→20:54)
--- NOTE | 2021-05-15 03:00 | NUR ---
WOOD DIE MAKER NOTES: PATIENT NOTED HAVING BM, BM WAS BLACK AND TARRY IN COLOR AND CHARACTERISTICS.
[2021-05-15 04:00] VITALS: BP 159/95
--- NOTE | 2021-05-15 06:25 | NUR ---
HOT MILL SUPERVISOR NOTES: PATIENT PUT ON NON-REBREATHER MASK AND RESTRAINED DUE TO PULLING OUT NASAL CANNULA AND PICKING AT IV SITE
--- NOTE | 2021-05-15 06:42 | NUR ---
NURSERY HAND CLOSING NOTES: PATIENT IN BED, A/O X2-3, CONFUSED, L. HAND #20 PATENT AND INTACT, BLEEDING SLIGHTLY AT IV SITE UNDER THE TAPE, RUNNING NS AT 75 ML/HR, ON NON-REBREATHER MASK, 15L, NO SIGNS OF DISTRESS NOTED, SLIGHT SOB NOTED, TELE MONITOR SHOWS CONTROLLED A. FIB., BLACK TARRY STOOL NOTED THROUGH SHIFT WITH BM. BED AT LOWEST POSITION, LOCKED AND IN PLACE, SIDE RAILS UP X2, CALL LIGHT WITHIN REACH, RESTRAINS ALSO APPLIED BILATERALLY TO WRISTS (SOFT RESTRAINT), WILL CONTINUE TO MONITOR AND ENDORSE TO DAY SHIFT NURSE.
--- NOTE | 2021-05-15 07:40 | NUR ---
RN OPENING NOTES: RECEIVED PATIENT IN BED, A/OX3. NO SOB OR DISTRESS NOTED AT THIS TIME. PT HAS NO C/O PAIN AT THIS TIME. PT ON NC @6LPM SATING AT 93%. IV ACCESS ON L HAND #20, FLUSHED, PATENT, WITH NO SIGNS OF INFILTRATION. ALL SAFETY MEASURES IMPLEMENTED, BED IN LOWEST POSITION LOCKED, RAILS X3 WITH CALL LIGHT WITHIN REACH. WILL CONTINUE TO MONITOR. Addendum: 05/15/21 at 1036 by RAMIRO HUTCHISON RN NOW ON NON-REBREATHER 15L. SATING AT 98%
[2021-05-15 08:00] VITALS: BP 165/89
[2021-05-15 08:20] LABS: CALCIUM, SERUM 8.2 mg/dL (8.5-10.1); CARBON DIOXIDE 25 mmol/L (21-32); CHLORIDE 102 mmol/L (98-107); CREATININE 3.3 mg/dL (0.6-1.3); GLUCOSE 154 mg/dL (74-106); POTASSIUM 4.5 mmol/L (3.5-5.1); SODIUM SERUM 138 mmol/L (136-145)
[2021-05-15] MEDS: ENSURE ENLIVE 237 ML LIQUID (VANILLA) PO SCH ×2 (08:28→16:34)
[2021-05-15 08:31] LABS: UREA NITROGEN, BLOOD 109 mg/dL (7-18)
[2021-05-15] MEDS: DOXYCYCLINE HYCLATE (100 MG) 100 MG TABLET PO SCH ×2 (08:39→20:54)
[2021-05-15] MEDS: ASPIRIN 81 MG TAB.CHEW PO SCH (08:39)
[2021-05-15] MEDS: APIXABAN 2.5 MG TABLET PO SCH ×2 (08:39→16:35)
[2021-05-15] MEDS: CEFEPIME 1 GM in IV D5W 50 ML IV SCH ×2 (08:40→20:55)
[2021-05-15] MEDS: DEXAMETHASONE SOD PHOSPHATE 10 MG/ML VIAL IV SCH (08:40)
[2021-05-15] MEDS: MUPIROCIN OINT 2% 22 GM TUBE TP SCH (08:41)
[2021-05-15 09:10] LABS: BASOPHILS # (AUTO) 0.1 K/uL (0.0-0.2); BASOPHILS % (AUTO) 0.6 % (0.0-2.0); EOSINOPHILS % (AUTO) 1.4 % (0.0-6.0); HEMATOCRIT 48 % (39-51); HEMOGLOBIN 15.7 g/dL (13.5-17.5); LYMPHOCYTES # (AUTO) 0.7 K/uL (0.8-4.8); LYMPHOCYTES % (AUTO) 4.5 % (20.0-44.0); MEAN CORPUSCULAR HGB CONC 33 g/dl (31.0-36.0); MEAN CORPUSCULAR VOLUME 83 fL (80-96); MONOCYTES # (AUTO) 1.3 K/uL (0.1-1.30); MONOCYTES % (AUTO) 8.5 % (2.0-12.0); NEUTROPHILS # (AUTO) 13.1 K/uL (1.8-8.9); PLATELET COUNT (AUTO) 156 K/uL (150-450); RED BLOOD CELL COUNT(AUTO) 5.73 MIL/uL (4.5-6.0); WHITE BLOOD COUNT (AUTO) 15.4 K/uL (4.3-11.0)
[2021-05-15 09:37] LABS: EOSINOPHILS % (MANUAL) 1 % (0-4); LYMPHOCYTES % (MANUAL) 3 % (16-48); MONOCYTES % (MANUAL) 14 % (0-11.0); NEUTROPHILS % (MANUAL) 82 (42-76)
[2021-05-15 12:00] VITALS: BP 153/102
[2021-05-15 14:30] LABS: C-REACTIVE PROTEIN 2.1 mg/dL (0.0-0.9)
[2021-05-15 16:00] VITALS: BP 138/97
--- NOTE | 2021-05-15 19:16 | NUR ---
RN CLOSING NOTE PATIENT REMAINS IN BED, RESTING. PATIENT ON 15L O2 NON REBREATHER WITH NO SIGNS OF LABORED BREATHING AT THIS TIME AND SATURATING 97%. LEFT HAND 22G IV IN PLACE, PATENT WITH NO SIGNS OF INFILTRATION. NO SIGNS OF DISTRESS NOTED AT THIS TIME. ALL NEEDS ATTENDED DURING SHIFT. BED LOCKED AND IN LOWEST POSITION, CALL LIGHT WITHIN REACH, 3 SIDE RAILS UP. ALL SAFETY MEASURES IMPLEMENTED. WILL ENDORSE TO GLOBAL CATEGORY MANAGER NURSE.
--- NOTE | 2021-05-15 19:30 | NUR ---
RN OPENING NOTES RECEIVED PATIENT IN BED, A/OX3. NO SOB OR DISTRESS NOTED AT THIS TIME. PT HAS NO C/O PAIN AT THIS TIME. PT ON NRB @ 15LPM. IV ACCESS ON L HAND #20, FLUSHED, PATENT, WITH NO SIGNS OF INFILTRATION. ALL SAFETY MEASURES IMPLEMENTED, BED IN LOWEST POSITION LOCKED, RAILS X3 WITH CALL LIGHT WITHIN REACH. WILL CONTINUE TO MONITOR.
[2021-05-15 20:00] VITALS: BP 147/87
[2021-05-16] VITALS: BP 151/91
[2021-05-16] MEDS: METOPROLOL TARTRATE INJ 5 MG/5 ML AMPUL IVP SCH ×4 (02:41→21:01)
--- NOTE | 2021-05-16 05:40 | NUR ---
RN NOTES PATIENT NOTED WITH RESTLESSNESS AND AGITATION, UNABLE TO REDIRECT. ATIVAN GIVEN PER MD'S ORDER. DENIES ANY PAIN, NO DIZZINESS. WILL CONTINUE TO MONITOR.
[2021-05-16] MEDS: LORAZEPAM 0.5 MG TABLET PO PRN (05:58)
[2021-05-16] MEDS: IV NS 0.9% 1,000 ML IV SCH ×2 (06:02→16:29)
--- NOTE | 2021-05-16 06:55 | NUR ---
COSTA NOTES PATIENT STILL RESTLESS AND AGITATED, WITH BP 180/100, DENIES HEADACHE, NO DIZZINESS NOTED. PADMA HINDS MADE AWARE WITH NEW ORDER HYDRALAZINE 5MG IVP X 1 NOTED AND CARRIED OUT. Addendum: 05/16/21 at 0809 by ARLEN TREVIÑO RN CO[facility] NOTES BLOOD PRESSURE RECHECKED AND OBTAINED 131/75. CONTINUE TO MONITOR.
--- NOTE | 2021-05-16 07:10 | NUR ---
RN NOTES HYDRALAZINE 5MG IVP X 1 GIVEN
[2021-05-16 07:17] VITALS: BP 168/88
--- NOTE | 2021-05-16 07:20 | NUR ---
RN CLOSING NOTES NO SIGNIFICANT CHANGES NOTED THROUGHOUT THE NIGHT RECEIVED PATIENT IN BED, A/OX3. NO SOB OR DISTRESS NOTED AT THIS TIME. PT HAS NO C/O PAIN AT THIS TIME. PT STILL ON NRB @ 15LPM. IV ACCESS ON L HAND #20, FLUSHED, PATENT, WITH NO SIGNS OF INFILTRATION. ALL DUE MEDS GIVEN ORDERED. ON ABX THERAPHY NO ADVERSE REACTION NOTED. ALL SAFETY MEASURES IMPLEMENTED, BED IN LOWEST POSITION LOCKED, 3WITH CALL LIGHT WITHIN REACH. WILL CONTINUE TO MONITOR
--- NOTE | 2021-05-16 07:25 | NUR ---
RN NOTE PATIENT OBSERVED IN BED AWAKE WITH NRB MASK @ 15LPM TOLERATING WELL, ALERT AND ORIENTED X2, O2 SAT OF 98%, BREATHING EVEN AND UNLABORED AT REST, ON TELE MONITOR TACHYCARDIA NOTED NO COMPLAINS OF PAIN, ON BILATERAL SOFT WRIST RESTRAINTS SKIN INTACT, WITH LEFT HAND GAUGE 20 FLUSHING WELL, SAFETY MEASURES OBSERVED, BED WHEELS LOCK, WILL CONTINUE TO MONITOR.
[2021-05-16] MEDS ORDERED: hydrALAZINE HCL IV 20 MG VIAL IV PRN ×2 (07:30→18:30)
[2021-05-16 08:00] VITALS: BP 131/75
[2021-05-16] MEDS: CEFEPIME 1 GM in IV D5W 50 ML IV SCH ×2 (09:10→21:01)
[2021-05-16] MEDS: DOXYCYCLINE HYCLATE (100 MG) 100 MG TABLET PO SCH ×2 (09:10→21:01)
[2021-05-16] MEDS: ASPIRIN 81 MG TAB.CHEW PO SCH (09:10)
[2021-05-16] MEDS: APIXABAN 2.5 MG TABLET PO SCH ×2 (09:12→16:33)
[2021-05-16] MEDS: DEXAMETHASONE SOD PHOSPHATE 10 MG/ML VIAL IV SCH (09:13)
[2021-05-16] MEDS: ENSURE ENLIVE 237 ML LIQUID (VANILLA) PO SCH ×2 (09:13→16:29)
[2021-05-16] MEDS: MUPIROCIN OINT 2% 22 GM TUBE TP SCH (09:13)
[2021-05-16 09:37] LABS: BASOPHILS # (AUTO) 0.1 K/uL (0.0-0.2); BASOPHILS % (AUTO) 0.3 % (0.0-2.0); EOSINOPHILS % (AUTO) 0.7 % (0.0-6.0); HEMATOCRIT 48 % (39-51); HEMOGLOBIN 15.8 g/dL (13.5-17.5); LYMPHOCYTES # (AUTO) 0.8 K/uL (0.8-4.8); LYMPHOCYTES % (AUTO) 4.4 % (20.0-44.0); MEAN CORPUSCULAR HGB CONC 33 g/dl (31.0-36.0); MEAN CORPUSCULAR VOLUME 84 fL (80-96); MONOCYTES # (AUTO) 1.3 K/uL (0.1-1.30); MONOCYTES % (AUTO) 6.8 % (2.0-12.0); NEUTROPHILS # (AUTO) 16.6 K/uL (1.8-8.9); NEUTROPHILS % (AUTO) 87.8 % (43.0-81.0); RED BLOOD CELL COUNT(AUTO) 5.71 MIL/uL (4.5-6.0); WHITE BLOOD COUNT (AUTO) 18.9 K/uL (4.3-11.0)
--- NOTE | 2021-05-16 09:49 | NUR ---
RN NOTE PATIENT STARTED ON 10LPM SIMPLE MASK, ABG ONE HOUR AFTER PER DR. RAMSEY.
--- NOTE | 2021-05-16 11:10 | NUR ---
RN NOTE ON SIMPLE MASK 10LPM O2 SAT OF 98%, RELAYED ABG RESULT TO DR. RAMSEY. DECREASE O2 VIA SIMPLE MASK TO 6LPM ORDERED.
[2021-05-16 11:12] LABS: ABG BASE EXCESS 0.8 mmol/L; ABG OXYGEN SATURATION 97.9 % (92.0-98.5); ABG PCO2 43.2 mmHg (35.0-45.0); ABG PH 7.396 (7.350-7.450); ABG PO2 109.9 mmHg (75.0-100.0); COHb 0.6 % (0.5-1.5); MetHb 0.2 % (0.0-1.5); O2Hb 97.1 % (94.0-97.0); SITE, ABG Left Brachial; VENT MODE, BG 10 L SM
[2021-05-16 12:00] VITALS: BP 147/88
[2021-05-16 12:48] LABS: BAND % (MANUAL) 2 % (0.0-5.0); EOSINOPHILS % (MANUAL) 1 % (0-4); LYMPHOCYTES % (MANUAL) 5 % (16-48); MONOCYTES % (MANUAL) 8 % (0-11.0); NEUTROPHILS % (MANUAL) 84 (42-76)
[2021-05-16] MEDS: LORAZEPAM INJ 2 MG/ML VIAL IV PRN (12:54)
[2021-05-16 12:55] LABS: PLATELET COUNT (AUTO) 96 K/uL (150-450)
[2021-05-16 14:31] LABS: CREATINE KINASE, TOTAL 67 U/L (39-308); FERRITIN 378 ng/mL (8-388)
[2021-05-16 16:00] VITALS: BP 148/91
[2021-05-16 16:31] LABS: C-REACTIVE PROTEIN 2.5 mg/dL (0.0-0.9)
--- NOTE | 2021-05-16 17:15 | NUR ---
RN NOTE BMP RESULT STILL PENDING AT THIS TIME.
--- NOTE | 2021-05-16 18:58 | NUR ---
RN NOTE PATIENT OBSERVED IN BED AWAKE WITH NASAL CANULA @ 6LPM O2 SAT OF 95% TOLERATING WELL TITRATE TOLERATED, ALERT AND ORIENTED X2, O2 SAT OF 98%, BREATHING EVEN AND UNLABORED AT REST, ON TELE MONITOR A FIB NOTED NO COMPLAINS OF PAIN, ON BILATERAL SOFT WRIST RESTRAINTS SKIN INTACT, WITH LEFT HAND GAUGE 20 FLUSHING WELL, SAFETY MEASURES OBSERVED, BED WHEELS LOCK, WILL ENDORSE TO NOC.
--- NOTE | 2021-05-16 19:25 | NUR ---
RN OPENING NOTES PATIENT RECEIVED IN BED SLEEPING, RESPIRATORY EVEN AND UNLABORED, NO SIGN AND SYMPTOMS OF SOB OR DISTRESS, PATIENT IS ON OXYGEN 6L VIA NASAL CANULA TOLERATING WELL, SAT 96%, TELE READING CONTROLLED A-FIB, HEART RATE- 93, PATIENT OBSERVED ON BILATERAL MEDICAL RESTRAIN, IV PLACE. WITH LEFT HAND #22 IV LINE RUNNING NS 75ML/HR. NOTED WITH BILATERAL LOWER EXTREMITIES EDEMA, LEG KEPT ELEVATED TOLERATED, SAFETY MEASURES IN PLACE BED ALARM ON LOCKED AND IN LOWEST POSITION CALL LIGHT WITHIN REACH WILL CONTINUE TO MONITOR
[2021-05-16 20:00] VITALS: BP 154/80
[2021-05-16 20:54] LABS: ALANINE AMINOTRANSFERASE 178 U/L (12-78); ALBUMIN 2.4 g/dL (3.4-5.0); ALKALINE PHOSPHATASE 153 U/L (46-116); ASPARTATE AMINOTRANSFERASE 86 U/L (15-37); BILIRUBIN,TOTAL 1.7 mg/dL (0.2-1.0); CALCIUM, SERUM 8.8 mg/dL (8.5-10.1); CARBON DIOXIDE 21 mmol/L (21-32); CHLORIDE 103 mmol/L (98-107); GLUCOSE 145 mg/dL (74-106); MAGNESIUM 2.8 mg/dL (1.8-2.4); SODIUM SERUM 142 mmol/L (136-145); TOTAL PROTEIN, SERUM 6.8 g/dL (6.4-8.2)
[2021-05-16 20:57] LABS: UREA NITROGEN, BLOOD 113 mg/dL (7-18)
[2021-05-17] VITALS: BP 141/78
[2021-05-17] MEDS: METOPROLOL TARTRATE INJ 5 MG/5 ML AMPUL IVP SCH ×4 (02:17→20:55)
[2021-05-17 04:00] VITALS: BP 170/95
--- NOTE | 2021-05-17 04:10 | NUR ---
RN NOTED PATIENT NOTED WITH BLOOD PRESSURE 170/95 HR-
--- NOTE | 2021-05-17 04:10 | NUR ---
RN NOTES PATIENT NOTED WITH BLOOD PRESSURE 170/95, HYDRALAZINE 10MG IVP PER MD'S ORDERED. PATIENT DENIES HEADACHE AND DIZZINESS, NO S/S OF DISTRESS NOTED. CONTINUE TO MONITOR.
--- NOTE | 2021-05-17 05:00 | NUR ---
RN NOTES BLOOD PRESSURE RECHECKED AND OBTAINED 159/91, WILL CONTINUE TO MONITOR THROUGH OUT THE SHIFT
[2021-05-17] MEDS: IV NS 0.9% 1,000 ML IV SCH (06:21)
--- NOTE | 2021-05-17 06:57 | NUR ---
RN CLOSING NOTES PATIENT REMAIN STABLE THROUGH OUT THE SHIFT, RESPIRATORY EVEN AND UNLABORED, NO SIGN AND SYMPTOMS OF SOB OR DISTRESS, PATIENT IS ON OXYGEN 6L VIA NASAL CANULA TOLERATING WELL, SAT 96%, PATIENT OBSERVED ON BILATERAL MEDICAL RESTRAIN, WHITH IV LINE ON LEFT HAND #22 IV LINE RUNNING NS 75ML/HR. NOTED WITH BILATERAL LOWER EXTREMITIES EDEMA, LEG KEPT ELEVATED TOLERATED. ALL DUE MEDS GIVEN ORDERED. SAFETY MEASURES IN PLACE BED ALARM ON LOCKED AND IN LOWEST POSITION CALL LIGHT WITHIN REACH WILL CONTINUE TO MONITOR
--- NOTE | 2021-05-17 07:30 | NUR ---
RN OPENING NOTES PATIENT RECEIVED IN BED SLEEPING, RESPIRATORY EVEN AND UNLABORED, NO SIGN AND SYMPTOMS OF SOB OR DISTRESS, PATIENT IS ON OXYGEN 6L VIA NASAL CANULA TOLERATING WELL, SAT 96%, TELE READING CONTROLLED A-FIB, HEART RATE- 80-90s, PATIENT OBSERVED ON BILATERAL MEDICAL RESTRAIN, IV PLACE. WITH LEFT HAND #22 IV LINE RUNNING NS 75ML/HR. NOTED WITH BILATERAL LOWER EXTREMITIES EDEMA, LEG KEPT ELEVATED TOLERATED, SAFETY MEASURES IN PLACE BED ALARM ON LOCKED AND IN
[2021-05-17 08:00] VITALS: BP 149/94
[2021-05-17] MEDS: CEFEPIME 1 GM in IV D5W 50 ML IV SCH ×2 (08:06→20:51)
[2021-05-17] MEDS: DEXAMETHASONE SOD PHOSPHATE 10 MG/ML VIAL IV SCH (08:07)
[2021-05-17] MEDS: APIXABAN 2.5 MG TABLET PO SCH ×2 (08:08→17:00)
[2021-05-17] MEDS: ENSURE ENLIVE 237 ML LIQUID (VANILLA) PO SCH ×2 (08:11→17:16)
--- NOTE | 2021-05-17 08:41 | NUR ---
RN NOTE UNABLE TO SCAN METOPROLOL TARTRATE 5MG/5ML. CALLED PHARMACY, HOLDEN SAID THERE IS NO ISSUE AT THEIR END, JUST ENTER THE BARCODE MANUALLY. HR IS 113, REPORT TO CHARGE NURSE, NICO
[2021-05-17] MEDS: MUPIROCIN OINT 2% 22 GM TUBE TP SCH (08:49)
[2021-05-17] MEDS: DOXYCYCLINE HYCLATE (100 MG) 100 MG TABLET PO SCH ×2 (08:49→20:51)
[2021-05-17] MEDS: ASPIRIN 81 MG TAB.CHEW PO SCH (08:49)
--- NOTE | 2021-05-17 10:00 | NUR ---
RN NOTE PT HAD BLACK, LOOSE STOOL, REPORT TO MD ELIO LENNON, AND CHARGE NURSE DR ELIO WALSH ORDER CBC STAT.
[2021-05-17 12:00] VITALS: BP 127/71
--- NOTE | 2021-05-17 12:00 | NUR ---
RN NOTE PT HAD 2ND BLACK LOOSE BOWL MOVEMENT, NOTIFY THE LAB, BUT DUE TO SHORT STAFF NO ONE DRAW THE LAB.
--- NOTE | 2021-05-17 14:00 | NUR ---
RN NOTE PT HAD 3RD BLACK LOOSE BOWL MOVEMENT, NOTIFY THE LAB, BUT DUE TO SHORT STAFF NO ONE DRAW THE LAB. CHARGE NURSE NICO NOTIFIED.
--- NOTE | 2021-05-17 14:00 | NUR ---
RN NOTE PT HAD 4TH BLACK LOOSE BOWL MOVEMENT, NOTIFY THE LAB, BUT DUE TO SHORT STAFF NO ONE DRAW THE LAB. CHARGE NURSE NICO NOTIFIED CASTING AGENT
[2021-05-17 16:00] VITALS: BP 117/82
--- NOTE | 2021-05-17 17:00 | NUR ---
RN NOTE HOLD THE ELIQUIS AT 1700 DUE TO PT HAD 4 BLACK LOOSE BOWL MOVEMENT.
[2021-05-17 17:01] LABS: BASOPHILS % (AUTO) 0.2 % (0.0-2.0); EOSINOPHILS % (AUTO) 0.3 % (0.0-6.0); HEMATOCRIT 40 % (39-51); LYMPHOCYTES # (AUTO) 0.5 K/uL (0.8-4.8); MEAN CORPUSCULAR HGB CONC 33 g/dl (31.0-36.0); MEAN CORPUSCULAR VOLUME 83 fL (80-96); MONOCYTES # (AUTO) 0.8 K/uL (0.1-1.30); MONOCYTES % (AUTO) 4.8 % (2.0-12.0); NEUTROPHILS # (AUTO) 15.9 K/uL (1.8-8.9); NEUTROPHILS % (AUTO) 91.7 % (43.0-81.0); PLATELET COUNT (AUTO) 145 K/uL (150-450); RED BLOOD CELL COUNT(AUTO) 4.74 MIL/uL (4.5-6.0); WHITE BLOOD COUNT (AUTO) 17.4 K/uL (4.3-11.0)
[2021-05-17 17:33] LABS: LYMPHOCYTES % (MANUAL) 8 % (16-48); MONOCYTES % (MANUAL) 5 % (0-11.0); NEUTROPHILS % (MANUAL) 86 (42-76); REACTIVE LYMPHOCYTES 1 % (0-0)
--- NOTE | 2021-05-17 19:30 | NUR ---
RN OPENING NOTE RECEIVED PATIENT IN BED. A/OX3. ON OXYGEN 6L/MIN VIA NASAL CANNULA. RESPIRATIONS ARE EVEN AND UNLABORED. NO S/S SOB NOTED AT THIS TIME. NO C/O PAIN. TELE MONITOR READS UNCONTROLLED AFIB HR 106. IN NO APPARENT DISTRESS. IV ACCESS IN LEFT HAND #20 RUNNING NS@75ML/HR. BED IS LOW AND LOCKED, HOB ELEVTAED IN SEMI FOWLERS, SIDE RAILS UP X2, CALL LIGHT WITHIN REACH.
--- NOTE | 2021-05-17 19:53 | NUR ---
RN CLOSING NOTES PATIENT REMAIN RESPIRATORY EVEN AND UNLABORED, NO SIGN AND SYMPTOMS OF SOB OR DISTRESS, PATIENT IS ON OXYGEN 6L VIA NASAL CANULA TOLERATING WELL, SAT 96%, PATIENT OBSERVED ON BILATERAL MEDICAL RESTRAIN, WHITH IV LINE ON LEFT HAND #22 IV LINE RUNNING NS 75ML/HR. NOTED WITH BILATERAL LOWER EXTREMITIES EDEMA, LEG KEPT ELEVATED TOLERATED. ALL DUE MEDS GIVEN ORDERED. SAFETY MEASURES IN PLACE BED ALARM ON LOCKED AND IN LOWEST POSITION CALL LIGHT WITHIN REACH WILL CONTINUE TO MONITOR.
[2021-05-17 20:00] VITALS: BP 151/93
[2021-05-17] MEDS: IV 1/2NS 1000 ML 1,000 ML IV PRN (20:51)
--- NOTE | 2021-05-17 22:00 | NUR ---
RN NOTE BED BATH GIVEN, LINEN CHANGED.
[2021-05-18] VITALS: BP 138/80
[2021-05-18] MEDS: METOPROLOL TARTRATE INJ 5 MG/5 ML AMPUL IVP SCH ×4 (02:36→20:52)
[2021-05-18 04:00] VITALS: BP 145/66
--- NOTE | 2021-05-18 07:36 | NUR ---
RN OPEN NOTES PATIENT RECEIVED IN BED, ALERT AND ORIENTED X3 RESPIRATORY EVEN AND UNLABORED, NO SIGN AND SYMPTOMS OF SOB OR DISTRESS, PATIENT IS ON OXYGEN 6L VIA NASAL CANULA TOLERATING WELL, SAT 95%, ISOLATION PRECAUTIONS IN PLACE, PATIENT OBSERVED ON BILATERAL MEDICAL RESTRAIN, IV LINE ON LEFT HAND #20 IV LINE RUNNING 1/2 NS 75ML/HR. SAFETY MEASURES IN PLACE BED ALARM LOCKED AND IN LOWEST POSITION CALL LIGHT WITHIN REACH WILL CONTINUE TO MONITOR.
[2021-05-18 07:38] LABS: BASOPHILS % (AUTO) 0.2 % (0.0-2.0); EOSINOPHILS % (AUTO) 0.3 % (0.0-6.0); HEMATOCRIT 35 % (39-51); HEMOGLOBIN 11.8 g/dL (13.5-17.5); LYMPHOCYTES # (AUTO) 1.1 K/uL (0.8-4.8); LYMPHOCYTES % (AUTO) 4.8 % (20.0-44.0); MEAN CORPUSCULAR HGB CONC 34 g/dl (31.0-36.0); MEAN CORPUSCULAR VOLUME 83 fL (80-96); MONOCYTES % (AUTO) 8.7 % (2.0-12.0); PLATELET COUNT (AUTO) 149 K/uL (150-450); RED BLOOD CELL COUNT(AUTO) 4.24 MIL/uL (4.5-6.0); WHITE BLOOD COUNT (AUTO) 23.2 K/uL (4.3-11.0)
[2021-05-18 08:00] VITALS: BP 147/71
--- NOTE | 2021-05-18 08:00 | NUR ---
RN CLOSING NOTE PATIENT RESTING IN BED. A/OX3. REMAINS ON OXYGEN 6L/MIN VIA NASAL CANNULA. NO RESP DISTRESS. STATES SOB WHEN LAYING FLAT ON BACK. NO C/O PAIN. TELE IS UNCONTROLLED AFIB.NO DISTRESS.LEFT HAND #20 RUNNING 1/2NS@75ML/HR. BED REMAINS LOW AND LOCKED, HOB ELEVATED IN SEMI FOWLERS, SIDE RAILS UP X2, CALL LIGHT WITHIN REACH. WILL ENDORSE TO ONCOMING SHIFT.
[2021-05-18 08:24] LABS: ALANINE AMINOTRANSFERASE 85 U/L (12-78); ALKALINE PHOSPHATASE 127 U/L (46-116); ASPARTATE AMINOTRANSFERASE 45 U/L (15-37); BILIRUBIN,TOTAL 1.4 mg/dL (0.2-1.0); CALCIUM, SERUM 8.3 mg/dL (8.5-10.1); CARBON DIOXIDE 28 mmol/L (21-32); CHLORIDE 107 mmol/L (98-107); CREATININE 2.4 mg/dL (0.6-1.3); GLUCOSE 129 mg/dL (74-106); MAGNESIUM 2.2 mg/dL (1.8-2.4); PHOSPHORUS 3.1 mg/dL (2.5-4.9); POTASSIUM 5.2 mmol/L (3.5-5.1); SODIUM SERUM 143 mmol/L (136-145); TOTAL PROTEIN, SERUM 5.7 g/dL (6.4-8.2)
[2021-05-18] MEDS: ENSURE ENLIVE 237 ML LIQUID (VANILLA) PO SCH ×2 (08:44→17:12)
[2021-05-18] MEDS: DOXYCYCLINE HYCLATE (100 MG) 100 MG TABLET PO SCH ×2 (08:50→20:37)
[2021-05-18] MEDS: CEFEPIME 1 GM in IV D5W 50 ML IV SCH ×2 (08:51→20:37)
[2021-05-18] MEDS: DEXAMETHASONE SOD PHOSPHATE 10 MG/ML VIAL IV SCH (08:51)
[2021-05-18] MEDS: MUPIROCIN OINT 2% 22 GM TUBE TP SCH (08:57)
[2021-05-18] MEDS: APIXABAN 2.5 MG TABLET PO SCH ×2 (09:00→16:42)
[2021-05-18] MEDS: ASPIRIN 81 MG TAB.CHEW PO SCH (09:00)
--- NOTE | 2021-05-18 09:00 | NUR ---
EN NOTE PT HAS BLACK STOOL REPORTED FROM SURGICAL GARMENT INSPECTOR
[2021-05-18 10:40] LABS: UREA NITROGEN, BLOOD 116 mg/dL (7-18)
[2021-05-18 12:00] VITALS: BP 150/95
[2021-05-18 12:23] LABS: BAND % (MANUAL) 2 % (0.0-5.0); LYMPHOCYTES % (MANUAL) 6 % (16-48); MONOCYTES % (MANUAL) 12 % (0-11.0); NEUTROPHILS % (MANUAL) 80 (42-76)
[2021-05-18] MEDS: IV 1/2NS 1000 ML 1,000 ML IV PRN (14:38)
--- NOTE | 2021-05-18 14:49 | NUR ---
RN NOTE ONLY ONE BLACK STOOL REPORTED RIGHT NOW
[2021-05-18 15:12] LABS: C-REACTIVE PROTEIN 2.3 mg/dL (0.0-0.9)
[2021-05-18 16:00] VITALS: BP 139/79
--- NOTE | 2021-05-18 18:32 | NUR ---
RN CLOSING NOTES PATIENT REMAINS IN BED, ALERT AND ORIENTED X3 RESPIRATORY EVEN AND UNLABORED, NO SIGN AND SYMPTOMS OF SOB OR DISTRESS, PATIENT IS ON OXYGEN 4L VIA NASAL CANULA TOLERATING WELL, SAT 96%, ISOLATION PRECAUTIONS IN PLACE, PATIENT OBSERVED ON BILATERAL MEDICAL RESTRAIN, IV LINE ON LEFT HAND #20 IV LINE RUNNING 1/2 NS 75ML/HR. PT KEPT CLEAN AND COMFORTABLE ALL NEEDS MET, SAFETY MEASURES IN PLACE BED ALARM ON LOCKED AND IN LOWEST POSITION CALL LIGHT WITHIN REACH WILL ENDORSE TO DIVINITY PROFESSORTHERMAL MOLDER
--- NOTE | 2021-05-18 19:51 | NUR ---
RN NOTE PATIENT ALERT AND ORIENTED X3. ABLE TO MAKE NEEDS KNOWN. ON O2 4L VIA NASAL CANNULA, NO S/S OF RESPIRATORY DISTRESS. NOTED WITH BILATERAL SOFT WRIST RESTRAINTS. POSITIVE CIRCULATION. NO S/S OF SKIN BREAKDOWN. LEFT HAND # 20 INFUSING 1/2 NS @ 75CC/HR. BED LOCKED AND IN LOWEST POSITION. CALL LIGHT WITHIN REACH. ALL NEEDS ANTICIPATED.
[2021-05-18 20:00] VITALS: BP 143/86
[2021-05-19] VITALS: BP 143/86
[2021-05-19] MEDS: METOPROLOL TARTRATE INJ 5 MG/5 ML AMPUL IVP SCH ×2 (01:56→08:45)
[2021-05-19 04:00] VITALS: BP 153/85
[2021-05-19] MEDS: IV 1/2NS 1000 ML 1,000 ML IV PRN ×2 (05:42→18:35)
[2021-05-19 06:32] LABS: BASOPHILS % (AUTO) 0.1 % (0.0-2.0); EOSINOPHILS % (AUTO) 0.1 % (0.0-6.0); HEMATOCRIT 32 % (39-51); HEMOGLOBIN 10.6 g/dL (13.5-17.5); LYMPHOCYTES # (AUTO) 0.9 K/uL (0.8-4.8); LYMPHOCYTES % (AUTO) 4.8 % (20.0-44.0); MEAN CORPUSCULAR HGB CONC 33 g/dl (31.0-36.0); MEAN CORPUSCULAR VOLUME 84 fL (80-96); MONOCYTES # (AUTO) 1.7 K/uL (0.1-1.30); MONOCYTES % (AUTO) 8.7 % (2.0-12.0); NEUTROPHILS # (AUTO) 16.7 K/uL (1.8-8.9); NEUTROPHILS % (AUTO) 86.3 % (43.0-81.0); PLATELET COUNT (AUTO) 141 K/uL (150-450); RED BLOOD CELL COUNT(AUTO) 3.83 MIL/uL (4.5-6.0); WHITE BLOOD COUNT (AUTO) 19.4 K/uL (4.3-11.0)
[2021-05-19 06:46] LABS: ALANINE AMINOTRANSFERASE 67 U/L (12-78); ALKALINE PHOSPHATASE 113 U/L (46-116); ASPARTATE AMINOTRANSFERASE 35 U/L (15-37); BILIRUBIN,TOTAL 1.4 mg/dL (0.2-1.0); CALCIUM, SERUM 8.2 mg/dL (8.5-10.1); CARBON DIOXIDE 29 mmol/L (21-32); CHLORIDE 108 mmol/L (98-107); CREATININE 2.2 mg/dL (0.6-1.3); GLUCOSE 129 mg/dL (74-106); MAGNESIUM 2.1 mg/dL (1.8-2.4); PHOSPHORUS 4.5 mg/dL (2.5-4.9); POTASSIUM 5.1 mmol/L (3.5-5.1); SODIUM SERUM 143 mmol/L (136-145); TOTAL PROTEIN, SERUM 5.4 g/dL (6.4-8.2)
[2021-05-19 06:51] LABS: UREA NITROGEN, BLOOD 98 mg/dL (7-18)
--- NOTE | 2021-05-19 07:20 | NUR ---
RN NOTE PATIENT RESTING IN BED. ON O2 4L VIA NASAL CANNULA, NO S/S OF RESPIRATORY DISTRESS. NOTED WITH BILATERAL SOFT WRIST RESTRAINTS. POSITIVE CIRCULATION. NO S/S OF SKIN BREAKDOWN. LEFT HAND # 20 INFUSING 1/2 NS @ 75CC/HR, NO S/S OF INFILTRATION. KEPT CLEAN AND DRY. BED LOCKED AND IN LOWEST POSITION. CALL LIGHT WITHIN REACH. ENDORSED TO AM SHIFT.
[2021-05-19 07:45] LABS: CREATINE KINASE, TOTAL 52 U/L (39-308); FERRITIN 296 ng/mL (8-388)
--- NOTE | 2021-05-19 07:51 | NUR ---
RN MORNING NOTE PT OBSERVED IN BED. PT IS POSITIVE FOR COVID 19. PT IS ON 2L O2 VIA NC SAT 96 - 97%. PT IS A/OX3 ON TELE MONITOR A FIB. PT IS ON BILATERAL SOFT WRIST RESTRAINTS. PT IS ON CARDIAC DIET. IV ACCESS L HAND 20G INFUSING WITH 1/2 NS @75ML/HR. BED IS LOCKED IN LOWEST POSITION X2 GUARD RAILS UP, CALL LIGHT IS WITHIN REACH, AND ALL HOSPITAL SAFETY PROTOCOLS ARE IN PLACE. WILL CONTINUE TO MONITOR THIS SHIFT.
[2021-05-19 08:00] VITALS: BP 153/86
[2021-05-19] MEDS: ENSURE ENLIVE 237 ML LIQUID (VANILLA) PO SCH ×2 (08:28→17:12)
[2021-05-19] MEDS: MUPIROCIN OINT 2% 22 GM TUBE TP SCH (08:29)
[2021-05-19] MEDS: CEFEPIME 1 GM in IV D5W 50 ML IV SCH ×2 (08:44→20:18)
[2021-05-19] MEDS: ASPIRIN 81 MG TAB.CHEW PO SCH (08:45)
[2021-05-19] MEDS: DEXAMETHASONE SOD PHOSPHATE 10 MG/ML VIAL IV SCH (08:45)
[2021-05-19] MEDS: DOXYCYCLINE HYCLATE (100 MG) 100 MG TABLET PO SCH ×2 (08:45→20:21)
[2021-05-19] MEDS: APIXABAN 2.5 MG TABLET PO SCH ×2 (08:53→17:00)
--- NOTE | 2021-05-19 08:53 | NUR ---
RN NOTE PT REPORTED HAVING BLACK STOOL PREVIOUS DAY.
--- NOTE | 2021-05-19 09:00 | NUR ---
RN NOTE LOPRESSOR BOTTLE WOULD NOT SCAN AND HAD TO MANUALLY PUNCH IN NUMBER.
[2021-05-19 12:00] VITALS: BP 140/82
--- NOTE | 2021-05-19 13:00 | NUR ---
RN NOTE O2 TITRATED DOWN TO 1L. CURRENT O2 SAT 98% NO SIGNS OF DISTRESS OR LABORED BREATHING. WILL CONTINUE TO MONITOR.
[2021-05-19 13:17] LABS: LYMPHOCYTES % (MANUAL) 5 % (16-48); MONOCYTES % (MANUAL) 9 % (0-11.0); NEUTROPHILS % (MANUAL) 86 (42-76)
[2021-05-19] MEDS: METOPROLOL TARTRATE 25 MG TABLET PO SCH ×2 (13:26→21:03)
[2021-05-19 16:00] VITALS: BP 143/81
--- NOTE | 2021-05-19 17:41 | NUR ---
RN NOTE PT REPORTED HAVING BLACK STOOL PREVIOUS DAY. NO BOWEL MOVEMENT TODAY. UNABLE TO ASSESS STOOL.
--- NOTE | 2021-05-19 17:42 | NUR ---
RN NOTE PT ON 1L O2 VIA NC, SAT 100% WHILE SITTING IN HIGH FOWLERS POSITION.
--- NOTE | 2021-05-19 18:43 | NUR ---
RN CLOSING NOTE RN MORNING NOTE PT IS SITTING IN BED COMFORTABLY IN HIGH FOWLERS IN BED. PT IS POSITIVE FOR COVID 19. PT IS NOW ON 1L O2 VIA NC SAT 100%. PT IS A/OX3 ON TELE MONITOR A FIB. PT IS ON BILATERAL SOFT WRIST RESTRAINTS. PT IS ON CARDIAC DIET. IV ACCESS L HAND 20G INFUSING WITH 1/2 NS @40ML/HR. BED IS LOCKED IN LOWEST POSITION X2 GUARD RAILS UP, CALL LIGHT IS WITHIN REACH, AND ALL HOSPITAL SAFETY PROTOCOLS ARE IN PLACE. WILL ENDORSE TO CAN INTAKE WORKER NURSE FOR IRENE.
--- NOTE | 2021-05-19 19:30 | NUR ---
RN OPENING NOTE RECEIVED PATIENT IN BED. A/OX3. ON OXYGEN 1/IN VIA NASAL CANNULA. RESPIRATIONS ARE EVEN NA D UNLABORED. NO S/S SOB AT REST. PATIENT DOES HAVE A COUGH. NO C/O PAIN AT THIS TIME. IN NO APPARENT DISTRESS. TELE MONITOR READS CONTROLLED AFIB HR 70-80S. IV ACCESS IN LEFT WRIST #20 RUNNING 1/2NS@40ML/HR. REMOVED BILATERAL SOFT WRIST RESTRAINTS AND DISCUSSED IW PATIENT COOPERATION AND COMPLIANCE. PATIENT AGREED TO KEEP ALL NECESSARY THINGS SUCH EKG LEADS, PULSE OX AND OXYGEN ON. BED IS LOW AND LOCKED, HOB ELEVATED IN ROD FOWLERS, SIDE RIAILS UP X2, BED ALARM ON. CALL LIGHT WITHIN REACH.
[2021-05-19 20:00] VITALS: BP 150/87
[2021-05-20] VITALS: BP 150/96
[2021-05-20 04:00] VITALS: BP 146/81
--- NOTE | 2021-05-20 07:21 | NUR ---
RN CLOSING NOTE RESTING IN BED. A/OX3. REMAINS ON OXYGEN 1/IN VIA NASAL CANNULA. NO C/O PAIN.NO DISTRESS. TELE MONITOR IS CONTROLLED AFIB. LEFT WRIST #20 RUNNING 1/2NS@40ML/HR. BILATERAL SOFT WRIST RESTRAINTS REAPPLIED D/T PATIENT REMOVED IV, EKD LEADS AND PULSE OX. BED IS LOW AND LOCKED, HOB ELEVATED IN ROD FOWLERS, SIDE RIAILS UP X2, BED ALARM ON. WILL ENDORSE TO ONCOMING SHIFT.
--- NOTE | 2021-05-20 07:30 | NUR ---
RN NOTE PT RECEIVED RESTING IN BED. A/OX3. REMAINS ON OXYGEN 1/IN VIA NASAL CANNULA. NO C/O PAIN.NO DISTRESS. TELE MONITOR IS CONTROLLED AFIB. LEFT WRIST #20 RUNNING 1/2NS@40ML/HR. BILATERAL SOFT WRIST RESTRAINTS APPLIED , EKG LEADS AND PULSE OX INPLACE NOTED. BED IS LOW AND LOCKED, HOB ELEVATED IN ROD FOWLERS, SIDE RIAILS UP X2, BED ALARM ON. WILL IRENE.
[2021-05-20 07:59] LABS: CALCIUM, SERUM 8.1 mg/dL (8.5-10.1); CARBON DIOXIDE 25 mmol/L (21-32); CHLORIDE 110 mmol/L (98-107); CREATININE 2.1 mg/dL (0.6-1.3); GLUCOSE 119 mg/dL (74-106); POTASSIUM 4.8 mmol/L (3.5-5.1); SODIUM SERUM 143 mmol/L (136-145)
[2021-05-20 08:00] VITALS: BP 141/82
[2021-05-20 08:03] LABS: BASOPHILS % (AUTO) 0.2 % (0.0-2.0); EOSINOPHILS % (AUTO) 0.1 % (0.0-6.0); HEMATOCRIT 32 % (39-51); HEMOGLOBIN 10.2 g/dL (13.5-17.5); LYMPHOCYTES # (AUTO) 0.9 K/uL (0.8-4.8); MEAN CORPUSCULAR HGB CONC 32 g/dl (31.0-36.0); MEAN CORPUSCULAR VOLUME 85 fL (80-96); MONOCYTES # (AUTO) 1.8 K/uL (0.1-1.30); MONOCYTES % (AUTO) 9.6 % (2.0-12.0); NEUTROPHILS % (AUTO) 85.1 % (43.0-81.0); PLATELET COUNT (AUTO) 148 K/uL (150-450); RED BLOOD CELL COUNT(AUTO) 3.73 MIL/uL (4.5-6.0); WHITE BLOOD COUNT (AUTO) 18.8 K/uL (4.3-11.0)
[2021-05-20] MEDS: ENSURE ENLIVE 237 ML LIQUID (VANILLA) PO SCH ×2 (08:12→16:42)
[2021-05-20 08:49] LABS: UREA NITROGEN, BLOOD 91 mg/dL (7-18)
[2021-05-20] MEDS: METOPROLOL TARTRATE 25 MG TABLET PO SCH ×2 (09:16→20:53)
[2021-05-20] MEDS: DOXYCYCLINE HYCLATE (100 MG) 100 MG TABLET PO SCH ×2 (09:16→20:52)
[2021-05-20] MEDS: ASPIRIN 81 MG TAB.CHEW PO SCH (09:16)
[2021-05-20] MEDS: DEXAMETHASONE SOD PHOSPHATE 10 MG/ML VIAL IV SCH (09:16)
[2021-05-20] MEDS: APIXABAN 2.5 MG TABLET PO SCH ×2 (09:17→16:43)
[2021-05-20] MEDS: CEFEPIME 1 GM in IV D5W 50 ML IV SCH ×2 (09:21→22:00)
[2021-05-20] MEDS: MUPIROCIN OINT 2% 22 GM TUBE TP SCH (10:03)
[2021-05-20 12:00] VITALS: BP 142/82
--- NOTE | 2021-05-20 12:30 | NUR ---
RN NOTE PATIENT REMOVED IV, PLACE IV SITE AT RIGHT WRIST 22 G.
--- NOTE | 2021-05-20 15:00 | NUR ---
RN NOTES PT 3 TIME PULL OUT THE IV LINES, 1ST ONE WAS RAC #20, SEC ONE R WRIST #22, AND 3RD ONE R WRIST #18.
[2021-05-20 16:00] VITALS: BP 145/86
[2021-05-20] MEDS: LORAZEPAM 0.5 MG TABLET PO PRN (17:18)
[2021-05-20] MEDS: LORAZEPAM INJ 2 MG/ML VIAL IV PRN (17:18)
--- NOTE | 2021-05-20 17:25 | NUR ---
PATIENT CONFUSED AND PULLING LINES DESPITE WRIST RESTRAINT,PRN ATIVAN PO GIVEN BUT SPIT BY PATIENT,PRN ATIVAN SHOT GIVEN TO PATIENT .WILL CONTIN UE TO MONITOR.
--- NOTE | 2021-05-20 18:56 | NUR ---
RN CLOSING NOTE RESTING IN BED. A/OX2. REMAINS ON OXYGEN 1/IN VIA NASAL CANNULA. NO C/O PAIN.NO DISTRESS. TELE MONITOR IS CONTROLLED AFIB. BILATERAL SOFT WRIST RESTRAINTS REAPPLIED D/T PATIENT REMOVED IV, 3 TIMES, EKG LEADS AND PULSE OX. BED IS LOW AND LOCKED, HOB ELEVATED IN ROD FOWLERS, SIDE RIAILS UP X2, BED ALARM ON. WILL ENDORSE TO NOC SHIFT.
--- NOTE | 2021-05-20 19:38 | NUR ---
RN NOTE RECEIVED PATIENT ON BEDSIDE CHAIR. SITTING. AOX1. CONFUSED. BREATHING EVEN AND MILDLY LABORED. PUT ON OXYGEN BUT PATIENT KEPT REMOVING. PLACED BACK TO BED WITH BILATERAL SOFT WRIST RESTRAINTS. 2 FINGER SPACED OBSERVED. ON TELE MONITORING, A-FIB AT THIS TIME. NO CHEST PAIN. SKIN WARM AND DRY, NO IV ACCESS NOTED. PATIENT WITH MIDLINE ORDER. PROVIDED FLUIDS FOR HYDRATION. FALL PRECAUTION OBSERVED. BED LOW, IN LOCKED POSITION. CALL LIGHT WITHIN REACH.
[2021-05-20 20:00] VITALS: BP 149/90
--- NOTE | 2021-05-20 22:30 | NUR ---
RN NOTE INSERTED PERIPHERAL IV 20G, ON LEFT HAND. PATENT. NO INFILTRATION NOTED.
[2021-05-20 22:53] LABS: BAND % (MANUAL) 1 % (0.0-5.0); LYMPHOCYTES % (MANUAL) 1 % (16-48); METAMYELOCYTES % 2 % (0-0); MONOCYTES % (MANUAL) 10 % (0-11.0); MYELOCYTES % 1 % (0-0); NEUTROPHILS % (MANUAL) 85 (42-76)
[2021-05-21] VITALS: BP 149/101
[2021-05-21] MEDS: LORAZEPAM 0.5 MG TABLET PO PRN (03:10)
--- NOTE | 2021-05-21 03:21 | NUR ---
RN NOTE PATIENT AGITATED AT THIS TIME. YELLING AND PULLING ON TELEMETRY LEADS, GETTING OUT OF BED. ADMINISTERED ATIVAN 0.5 MG PER MD ORDER FOR AGITATION. PATIENT PROVIDED WITH FLUIDS FOR ADEQUATE HYDRATION. BILATERAL SOFT WRIST RESTRAINTS RELEASED AT THIS TIME UNTIL PATIENT CALMS. WILL CONTINUE TO MONITOR.
[2021-05-21 04:00] VITALS: BP 132/99
[2021-05-21] MEDS: IV 1/2NS 1000 ML 1,000 ML IV PRN (04:56)
--- NOTE | 2021-05-21 07:40 | NUR ---
RN OPENING NOTES RECEIVED PT IN BED SLEEPING. A/O X 1. PT IS VERY CONFUSED AND HAS BILATERAL SOFT WRIST RESTRAINTS. CURRENTLY HAS A R HAND 20G WITH 1/2 NS RUNNING 40 CC AN HOUR. PT IS ON CARDIAC DIET. ALL SAFETY MEASURES IN PLACE, BED IN LOWEST LOCKED POSITION, SIDE RAILS UP X 3, CALL LIGHT WITHIN REACH. WILL CONTINUE TO MONITOR THROUGHOUT SHIFT.
[2021-05-21 07:49] LABS: CALCIUM, SERUM 8.4 mg/dL (8.5-10.1); CARBON DIOXIDE 21 mmol/L (21-32); CHLORIDE 112 mmol/L (98-107); CREATININE 1.9 mg/dL (0.6-1.3); GLUCOSE 110 mg/dL (74-106); SODIUM SERUM 141 mmol/L (136-145)
[2021-05-21 08:00] VITALS: BP 150/78
[2021-05-21 08:31] LABS: POTASSIUM 6.3 mmol/L (3.5-5.1); UREA NITROGEN, BLOOD 90 mg/dL (7-18)
[2021-05-21] MEDS: ENSURE ENLIVE 237 ML LIQUID (VANILLA) PO SCH ×2 (08:39→17:07)
[2021-05-21] MEDS: METOPROLOL TARTRATE 25 MG TABLET PO SCH ×2 (09:08→22:23)
[2021-05-21] MEDS: ASPIRIN 81 MG TAB.CHEW PO SCH (09:08)
[2021-05-21] MEDS: DOXYCYCLINE HYCLATE (100 MG) 100 MG TABLET PO SCH ×2 (09:08→22:22)
[2021-05-21] MEDS: DEXAMETHASONE SOD PHOSPHATE 10 MG/ML VIAL IV SCH (09:09)
[2021-05-21] MEDS: APIXABAN 2.5 MG TABLET PO SCH ×2 (09:10→17:08)
[2021-05-21] MEDS: CEFEPIME 1 GM in IV D5W 50 ML IV SCH ×2 (09:11→22:21)
[2021-05-21] MEDS: MUPIROCIN OINT 2% 22 GM TUBE TP SCH (09:11)
[2021-05-21 09:16] LABS: BASOPHILS % (AUTO) 0.2 % (0.0-2.0); EOSINOPHILS % (AUTO) 0.6 % (0.0-6.0); HEMATOCRIT 30 % (39-51); HEMOGLOBIN 9.5 g/dL (13.5-17.5); LYMPHOCYTES # (AUTO) 1.1 K/uL (0.8-4.8); LYMPHOCYTES % (AUTO) 5.6 % (20.0-44.0); MEAN CORPUSCULAR HGB CONC 32 g/dl (31.0-36.0); MEAN CORPUSCULAR VOLUME 86 fL (80-96); MONOCYTES # (AUTO) 1.9 K/uL (0.1-1.30); MONOCYTES % (AUTO) 9.3 % (2.0-12.0); NEUTROPHILS # (AUTO) 16.8 K/uL (1.8-8.9); NEUTROPHILS % (AUTO) 84.3 % (43.0-81.0); PLATELET COUNT (AUTO) 142 K/uL (150-450); RED BLOOD CELL COUNT(AUTO) 3.45 MIL/uL (4.5-6.0); WHITE BLOOD COUNT (AUTO) 19.9 K/uL (4.3-11.0)
[2021-05-21] MEDS: LORAZEPAM INJ 2 MG/ML VIAL IV PRN (11:37)
[2021-05-21 12:00] VITALS: BP 150/87
[2021-05-21 15:16] LABS: LYMPHOCYTES % (MANUAL) 7 % (16-48); MONOCYTES % (MANUAL) 7 % (0-11.0); NEUTROPHILS % (MANUAL) 86 (42-76)
[2021-05-21 16:00] VITALS: BP 144/92
--- NOTE | 2021-05-21 19:07 | NUR ---
RN CLOSING NOTE PT IS SLEEPING IN BED WITH NO SIGNS OF DISTRESS, SOB OR LABORED BREATHING. PT IS A/O X 1 AND CONFUSED. PT IS FALL RISK AND HAS BILATERAL WRIST RESTRAINTS ON. CURRENTLY HAS R HAND 20G WITH 1/2 NS RUNNING 40CC/HR. PT IS ON CARDIAC DIET AND TOLERATED ALL MEDS AND TREATMENTS WELL DURING SHIFT. ALL SAFETY MEASURES IN PLACE. BED IN LOWEST LOCKED POSITION, CALL LIGHT WITHIN REACH. SIDE RAILS UP X3. WILL ENDORSE TO ONCOMING RESOURCE ROOM TEACHER NURSE.
--- NOTE | 2021-05-21 19:40 | NUR ---
TELE/RN OPENING NOTE RECEIVED PATIENT SLEEPING IN BED. ALERT AND ORIENTED TO NAME ONLY. NO S/SX OF PAIN NOTED AT THIS TIME. CONTINUES ON O2 2L VIA NC WITH NO S/SX OF RESPIRATORY DISTRESS NOTED. IV ACCESS TO RIGHT HAND 20G INTACT AND PATENT. CONTINUES ON IVF 1/2 NS @40ML/HR. CONTINUES ON BILATERAL SOFT WRIST RESTRAINTS FOR SAFETY. POSITIVE CIRCULATION NOTED WITH NO SKIN ISSUES AT THIS TIME. CONTINUES ON TELE MONITOR WITH CURRENT READING A-FIB. CALL LIGHT WITHIN REACH. ASPIRATION, FALL AND SAFETY PRECAUTIONS MAINTAINED. WILL CONTINUE TO MONITOR.
[2021-05-21 20:00] VITALS: BP 155/96
[2021-05-22] VITALS: BP 157/55
[2021-05-22 04:00] VITALS: BP 140/78
[2021-05-22] MEDS: IV 1/2NS 1000 ML 1,000 ML IV PRN (05:38)
--- NOTE | 2021-05-22 06:40 | NUR ---
TELE/RN CLOSING NOTE PATIENT CURRENTLY SLEEPING IN BED. ALERT AND ORIENTED TO NAME ONLY. NO S/SX OF PAIN NOTED AT THIS TIME. CONTINUES ON O2 2L VIA NC WITH NO S/SX OF RESPIRATORY DISTRESS NOTED. IV ACCESS TO RIGHT HAND 20G INTACT AND PATENT. CONTINUES ON IVF 1/2 NS @40ML/HR. CONTINUES ON IV ABX. CONTINUES ON BILATERAL SOFT WRIST RESTRAINTS FOR SAFETY. POSITIVE CIRCULATION NOTED WITH NO SKIN ISSUES AT THIS TIME. CONTINUES ON TELE MONITOR WITH CURRENT READING A-FIB CONTROLLED. CALL LIGHT WITHIN REACH. ASPIRATION, FALL AND SAFETY PRECAUTIONS MAINTAINED. WILL ENDORSE PLAN OF CARE TO ONCOMING SHIFT.
[2021-05-22 07:01] LABS: BASOPHILS % (AUTO) 0.1 % (0.0-2.0); EOSINOPHILS % (AUTO) 0.4 % (0.0-6.0); HEMATOCRIT 30 % (39-51); HEMOGLOBIN 9.6 g/dL (13.5-17.5); LYMPHOCYTES % (AUTO) 4.6 % (20.0-44.0); MEAN CORPUSCULAR HGB CONC 32 g/dl (31.0-36.0); MEAN CORPUSCULAR VOLUME 85 fL (80-96); MONOCYTES # (AUTO) 1.4 K/uL (0.1-1.30); MONOCYTES % (AUTO) 6.8 % (2.0-12.0); NEUTROPHILS # (AUTO) 18.3 K/uL (1.8-8.9); NEUTROPHILS % (AUTO) 88.1 % (43.0-81.0); PLATELET COUNT (AUTO) 145 K/uL (150-450); RED BLOOD CELL COUNT(AUTO) 3.49 MIL/uL (4.5-6.0); WHITE BLOOD COUNT (AUTO) 20.8 K/uL (4.3-11.0)
--- NOTE | 2021-05-22 07:50 | NUR ---
RN NOTE RECEIVED PT ASLEEP IN BED, RESPONSIVE TO STIMULI. CONTINUES ON O2 VIA 2L WITH SATURATION OF 98. KASH SOFT WRIST RESTRAINT IN PLACE, NO SS OF CIRCULATORY IMPAIRMENT. R HAND G [address] WITH IVF 1/2 NS RUNNING AT 40CC/HR TOLERATING WELL. WILL CONTINUE TO MONITOR. ALL SAFETY MEASURES FOLLOWED.
[2021-05-22 08:00] VITALS: BP 128/89
[2021-05-22] MEDS ORDERED: DEXAMETHASONE SOD PHOSPHATE 10 MG/ML VIAL IV SCH (09:00)
[2021-05-22] MEDS: ASPIRIN 81 MG TAB.CHEW PO SCH (09:25)
[2021-05-22 09:26] LABS: CALCIUM, SERUM 7.9 mg/dL (8.5-10.1); CARBON DIOXIDE 27 mmol/L (21-32); CHLORIDE 113 mmol/L (98-107); CREATININE 1.9 mg/dL (0.6-1.3); GLUCOSE 92 mg/dL (74-106); POTASSIUM 5.1 mmol/L (3.5-5.1); SODIUM SERUM 147 mmol/L (136-145); UREA NITROGEN, BLOOD 76 mg/dL (7-18)
[2021-05-22] MEDS: DOXYCYCLINE HYCLATE (100 MG) 100 MG TABLET PO SCH ×2 (09:26→21:08)
[2021-05-22] MEDS: METOPROLOL TARTRATE 25 MG TABLET PO SCH ×2 (09:26→21:09)
[2021-05-22] MEDS: APIXABAN 2.5 MG TABLET PO SCH ×2 (09:28→17:04)
[2021-05-22] MEDS: MUPIROCIN OINT 2% 22 GM TUBE TP SCH (09:51)
[2021-05-22] MEDS: ENSURE ENLIVE 237 ML LIQUID (VANILLA) PO SCH ×2 (09:51→17:56)
[2021-05-22] MEDS: CEFEPIME 1 GM in IV D5W 50 ML IV SCH ×2 (10:01→21:08)
[2021-05-22 12:00] VITALS: BP 128/89
[2021-05-22] MEDS: LORAZEPAM INJ 2 MG/ML VIAL IV PRN (13:05)
[2021-05-22 14:08] LABS: BAND % (MANUAL) 1 % (0.0-5.0); LYMPHOCYTES % (MANUAL) 9 % (16-48); MONOCYTES % (MANUAL) 7 % (0-11.0); NEUTROPHILS % (MANUAL) 83 (42-76)
[2021-05-22 16:00] VITALS: BP 123/74
--- NOTE | 2021-05-22 19:40 | NUR ---
RN opening notes Pt is laying in bed comfortably watching TV. Pt is alert and orientedX2 with episode of confusion. Respiration on 2 L NC. No SOB. no S/S of distress noted. IV site at R hand# 20 is clean, intact and infusing well 1/2 Ns @ 40 ml/hr. Bilateral soft wrist restraint is intact, skin is warm to touch and circulation checks. Safety precautions is maintained. continues covid isolation. bed at low position, brakes locked, side railsupX3, hob elevated and call light is within reach. Will continue to monitor.
[2021-05-22 20:00] VITALS: BP 145/100
[2021-05-23] MEDS: IV 1/2NS 1000 ML 1,000 ML IV PRN (01:27)
[2021-05-23 04:00] VITALS: BP 131/79
--- NOTE | 2021-05-23 06:40 | NUR ---
RN closing notes Pt is resting in bed comfortably. Pt is alert and orientedX2. Respiration on 2 L NC. No SOB. no S/S of distress noted. IV site at R hand# 20 is clean, intact and infusing well 1/2 Ns @ 40 ml/hr. Bilateral soft wrist restraint is intact, skin is warm to touch and circulation checks. Routine meds were given as ordered. Kept Pt clean, dry and comfortable. Safety precautions is maintained. bed at low position, brakes locked, side railsupX3, hob elevated and call light is within reach. Will endorse to am nurse for IRENE.
--- NOTE | 2021-05-23 07:25 | NUR ---
RN OPENING NOTE RECEIVED PATIENT IN BED A/O 2. PATIENT IS ON 2L NC. NO CURRENT SIGNS OF DISTRESS AND PATIENT DENIES PAIN.PATIENT HAS BILATERAL SOFT WRIST RESTRAINT IN PLACE DUE TO HIM ATTEMPTING PULL OUT IV ACCESS, RESTRAINTS [place] 05/22 [place] [address]. IV ACCESS IS CURRENTLY IN PLACE ON THE RIGHT HAND 20G RUNNING 40ML/HR OF NS. SAFETY PROTOCOL IN PLACE, BED LOCKED AND IN LOWEST POSITION WITH 2 SIDE RAILS UP, CALL LIGHT WITHIN REACH.
[2021-05-23 07:27] LABS: BASOPHILS % (AUTO) 0.2 % (0.0-2.0); EOSINOPHILS % (AUTO) 1.9 % (0.0-6.0); HEMATOCRIT 26 % (39-51); HEMOGLOBIN 8.4 g/dL (13.5-17.5); LYMPHOCYTES % (AUTO) 5.4 % (20.0-44.0); MEAN CORPUSCULAR HGB CONC 32 g/dl (31.0-36.0); MEAN CORPUSCULAR VOLUME 86 fL (80-96); MONOCYTES # (AUTO) 1.1 K/uL (0.1-1.30); MONOCYTES % (AUTO) 5.9 % (2.0-12.0); NEUTROPHILS # (AUTO) 16.3 K/uL (1.8-8.9); NEUTROPHILS % (AUTO) 86.6 % (43.0-81.0); PLATELET COUNT (AUTO) 126 K/uL (150-450); RED BLOOD CELL COUNT(AUTO) 3.02 MIL/uL (4.5-6.0); WHITE BLOOD COUNT (AUTO) 18.8 K/uL (4.3-11.0)
[2021-05-23 07:47] LABS: CALCIUM, SERUM 7.9 mg/dL (8.5-10.1); CARBON DIOXIDE 24 mmol/L (21-32); CHLORIDE 111 mmol/L (98-107); CREATININE 1.7 mg/dL (0.6-1.3); GLUCOSE 97 mg/dL (74-106); SODIUM SERUM 142 mmol/L (136-145); UREA NITROGEN, BLOOD 70 mg/dL (7-18)
[2021-05-23 08:00] VITALS: BP 124/68
[2021-05-23] MEDS: ENSURE ENLIVE 237 ML LIQUID (VANILLA) PO SCH ×2 (08:00→17:29)
[2021-05-23] MEDS ORDERED: DEXAMETHASONE SOD PHOSPHATE 10 MG/ML VIAL IV SCH (09:00)
[2021-05-23] MEDS: CEFEPIME 1 GM in IV D5W 50 ML IV SCH ×2 (09:03→21:43)
[2021-05-23] MEDS: ASPIRIN 81 MG TAB.CHEW PO SCH (09:03)
[2021-05-23] MEDS: DOXYCYCLINE HYCLATE (100 MG) 100 MG TABLET PO SCH ×2 (09:07→21:44)
[2021-05-23] MEDS: METOPROLOL TARTRATE 25 MG TABLET PO SCH ×2 (09:07→21:44)
[2021-05-23] MEDS: APIXABAN 2.5 MG TABLET PO SCH ×2 (09:17→17:19)
[2021-05-23] MEDS: MUPIROCIN OINT 2% 22 GM TUBE TP SCH (09:19)
[2021-05-23 13:45] VITALS: BP 136/84
[2021-05-23 16:00] VITALS: BP 131/90
--- NOTE | 2021-05-23 18:46 | NUR ---
RN CLOSING NOTE RECEIVED PATIENT IN BED A/O 2. PATIENT IS ON 2L NC. NO CURRENT SIGNS OF DISTRESS AND PATIENT DENIES PAIN.PATIENT HAS BILATERAL SOFT WRIST RESTRAINT IN PLACE DUE TO HIM ATTEMPTING PULL OUT IV ACCESS, RESTRAINTS [place] 05/22 [place] [address]. IV ACCESS IS CURRENTLY IN PLACE ON THE RIGHT HAND 20G RUNNING 40ML/HR OF NS. ALL ORDERED MEDICATION WERE GIVEN. PATIENT NEEDS MET. SAFETY PROTOCOL IN PLACE, BED LOCKED AND IN LOWEST POSITION WITH 2 SIDE RAILS UP, CALL LIGHT WITHIN REACH. WILL ENDORSE TO NIGHT NURSE FOR IRENE.
[2021-05-23 20:00] VITALS: BP 143/97
--- NOTE | 2021-05-23 20:00 | NUR ---
MS RN NOTE RECEIVED PATIENT IN VIRGIL/O X2- WITH PERIOD CONFUSION ON 2 LITERS OF 02 ,SATING 98% NO SOB NO DISTRESS NOTED BREATHING EVEN AND UNLABORED ,WITH BILATERAL SOFT WRIST RESTRAINTS. 2 FINGER SPACED OBSERVED. SKIN WARM AND DRY,IV ACCESS INTACT AND PATENT .ON 05/24 NS AT 40CC/HR INFUSING WELL, V/S STABLE AFEBRILE FALL PRECAUTION OBSERVED. BED LOW, IN LOCKED POSITION. CALL LIGHT WITHIN REACH. ALL NEEDS ATTENDED TOO , WILL CONTINUE TO MONITOR PTS.
--- NOTE | 2021-05-23 21:00 | NUR ---
MS RN NOTES ALL DUE MEDS GIVEN ORDER WITH NO ASE NOTED.
[2021-05-24 04:00] VITALS: BP 127/73
--- NOTE | 2021-05-24 06:42 | NUR ---
ms rn notes Pts remain in bed , comfortable no c/o of pain at this time , will endorse to rn day shift for continuity of care.
--- NOTE | 2021-05-24 07:28 | NUR ---
RN OPENING NOTE RECEIVED PATIENT IN BED A/O 2. PATIENT IS ON 2L NC. NO CURRENT SIGNS OF DISTRESS AND PATIENT DENIES PAIN.PATIENT HAS BILATERAL SOFT WRIST RESTRAINT IN PLACE DUE TO HIM ATTEMPTING PULL OUT IV ACCESS, RESTRAINTS RENEWED 05/22 [place] [address]481. IV ACCESS IS CURRENTLY IN PLACE ON THE RIGHT HAND 20G RUNNING 40ML/HR OF NS. SAFETY PROTOCOL IN PLACE, BED LOCKED AND IN LOWEST POSITION WITH 2 SIDE RAILS UP, CALL LIGHT WITHIN REACH
[2021-05-24] MEDS: CEFEPIME 1 GM in IV D5W 50 ML IV SCH (08:46)
[2021-05-24] MEDS: DOXYCYCLINE HYCLATE (100 MG) 100 MG TABLET PO SCH ×2 (08:46→20:56)
[2021-05-24] MEDS: ASPIRIN 81 MG TAB.CHEW PO SCH (08:46)
[2021-05-24] MEDS: METOPROLOL TARTRATE 25 MG TABLET PO SCH ×2 (08:47→20:56)
[2021-05-24] MEDS: ENSURE ENLIVE 237 ML LIQUID (VANILLA) PO SCH ×2 (08:48→16:17)
[2021-05-24] MEDS: APIXABAN 2.5 MG TABLET PO SCH ×2 (08:48→16:17)
[2021-05-24] MEDS: MUPIROCIN OINT 2% 22 GM TUBE TP SCH (09:24)
--- NOTE | 2021-05-24 11:08 | NUR ---
RN NOTE PATIENT NOTED TO BE MORE A/O X3. TRIAL PERIOD OF REMOVING RT HAND RESTRAINT, REORIENTED PATIENT TO SURROUNDINGS. PATIENT STATED HE WOULD NOT ATTEMPT TO REMOVE IV LINE. WILL LEAVE RT RESTRAINT OFF AND MONITOR PATIENT FOR THE NEXT HOUR.
[2021-05-24 13:03] LABS: BASOPHILS # (AUTO) 0.1 K/uL (0.0-0.2); BASOPHILS % (AUTO) 0.4 % (0.0-2.0); EOSINOPHILS % (AUTO) 1.9 % (0.0-6.0); HEMATOCRIT 23 % (39-51); HEMOGLOBIN 7.7 g/dL (13.5-17.5); LYMPHOCYTES % (AUTO) 5.8 % (20.0-44.0); MEAN CORPUSCULAR HGB CONC 34 g/dl (31.0-36.0); MEAN CORPUSCULAR VOLUME 85 fL (80-96); MONOCYTES # (AUTO) 1.1 K/uL (0.1-1.30); MONOCYTES % (AUTO) 6.4 % (2.0-12.0); NEUTROPHILS # (AUTO) 14.4 K/uL (1.8-8.9); NEUTROPHILS % (AUTO) 85.5 % (43.0-81.0); PLATELET COUNT (AUTO) 160 K/uL (150-450); WHITE BLOOD COUNT (AUTO) 16.9 K/uL (4.3-11.0)
[2021-05-24 13:11] LABS: CALCIUM, SERUM 7.3 mg/dL (8.5-10.1); CARBON DIOXIDE 21 mmol/L (21-32); CHLORIDE 108 mmol/L (98-107); CREATININE 1.8 mg/dL (0.6-1.3); GLUCOSE 108 mg/dL (74-106); POTASSIUM 3.8 mmol/L (3.5-5.1); SODIUM SERUM 139 mmol/L (136-145); UREA NITROGEN, BLOOD 63 mg/dL (7-18)
--- NOTE | 2021-05-24 14:00 | NUR ---
RN NOTE PATIENT A/O X3 REMOVED ONE RESTRAIN, PATIENT DID NOT ATTEMPT TO REMOVE OR PULL IV ACCESS OFF. REORIENTED PATIENT. RESTRAINTS ARE KNOW COMPLETELY OFF.
[2021-05-24 16:00] VITALS: BP 121/79
--- NOTE | 2021-05-24 19:03 | NUR ---
RN CLOSING NOTE RECEIVED PATIENT IN BED A/O 2. PATIENT IS ON 2L NC. NO CURRENT SIGNS OF DISTRESS AND PATIENT DENIES PAIN.PATIENT HAS BILATERAL SOFT WRIST RESTRAINT IN PLACE DUE TO HIM ATTEMPTING PULL OUT IV ACCESS. IV ACCESS IS CURRENTLY IN PLACE ON THE RIGHT HAND 20G RUNNING 40ML/HR OF NS. ALL ORDERED MEDICATION WERE GIVEN. PATIENT NEEDS MET. SAFETY PROTOCOL IN PLACE, BED LOCKED AND IN LOWEST POSITION WITH 2 SIDE RAILS UP, CALL LIGHT WITHIN REACH. WILL ENDORSE TO NIGHT NURSE FOR IRENE.
--- NOTE | 2021-05-24 19:30 | NUR ---
MS RN NOTE RECEIVED PATIENT IN BED. A/OX3-4. NO S/S OF APPARENT DISTRESS ON 2LPM OF O2 VIA NC. DENIES PAIN AT THIS TIME. RIGHT HAND IV ACCESS RUNNING 1/2 NS @40ML/HR. ON RESTRAINTS VACATION AT THE MOMENT-- WILL MONITOR. SAFETY IN PLACE. WILL FOLLOW THROUGH WITH PATIENT'S CARE PLAN.
[2021-05-25] VITALS: BP 135/89
--- NOTE | 2021-05-25 06:42 | NUR ---
MS RN CLOSING NOTE NO SIGNIFICANT CHANGE WITH PATIENT SINCE LAST ENDORSEMENT. ALL NEEDS ATTENDED. ALL SCHEDULED MEDICATION ADMINISTERED. WILL ENDORSE TO MORNING SHIFT RN FOR CONTINUITY OF CARE.
--- NOTE | 2021-05-25 07:30 | NUR ---
MS RN OPENING NOTES RECEIVED PATIENT ON BED, RESTING AND A/O X3. ON O2 AT 2LPM VIA NASAL CANNULA TOLERATING WELL. NO SOB NOTED. NOT IN DISTRESS. WITH NO COMPLAINTS OF PAIN OR DISCOMFORT AT THIS TIME. WITH IV ACCESS AT RIGHT HAND G22 WITH IVF 1/2NS AT 40ML/HR INFUSING WELL. IV SITE IS PATENT AND INTACT. SAFETY MEASURES IN PLACED. CALL LIGHT WITHIN REACH. BED ON LOWEST LOCKED POSITION, SIDE RAILS UP X2. WILL CONTINUE TO MONITOR.
--- NOTE | 2021-05-25 07:30 | NUR ---
MS SKELTON OPENING NOTES RECEIVED PATIENT ON BED, RESTING AND A/O X3. ON O2 AT 2LPM VIA NASAL CANNULA TOLERATING WELL. NO SOB NOTED. NOT IN DISTRESS. WITH NO COMPLAINTS OF PAIN OR DISCOMFORT AT THIS TIME. WITH IV ACCESS AT RIGHT HAND G22 WITH IVF 1/2NS AT 400 Addendum: 05/25/21 at 0812 by ALPHONSE FLORES RN ERROR.
[2021-05-25 07:45] LABS: BASOPHILS # (AUTO) 0.1 K/uL (0.0-0.2); BASOPHILS % (AUTO) 0.5 % (0.0-2.0); EOSINOPHILS % (AUTO) 3.1 % (0.0-6.0); HEMATOCRIT 23 % (39-51); HEMOGLOBIN 7.5 g/dL (13.5-17.5); LYMPHOCYTES # (AUTO) 0.7 K/uL (0.8-4.8); LYMPHOCYTES % (AUTO) 5.9 % (20.0-44.0); MEAN CORPUSCULAR HGB CONC 33 g/dl (31.0-36.0); MEAN CORPUSCULAR VOLUME 87 fL (80-96); MONOCYTES # (AUTO) 0.6 K/uL (0.1-1.30); MONOCYTES % (AUTO) 5.1 % (2.0-12.0); NEUTROPHILS # (AUTO) 9.7 K/uL (1.8-8.9); NEUTROPHILS % (AUTO) 85.4 % (43.0-81.0); PLATELET COUNT (AUTO) 114 K/uL (150-450); RED BLOOD CELL COUNT(AUTO) 2.65 MIL/uL (4.5-6.0); WHITE BLOOD COUNT (AUTO) 11.4 K/uL (4.3-11.0)
[2021-05-25 08:00] VITALS: BP 110/63
[2021-05-25 08:08] LABS: CALCIUM, SERUM 7.9 mg/dL (8.5-10.1); CARBON DIOXIDE 26 mmol/L (21-32); CHLORIDE 108 mmol/L (98-107); CREATININE 1.9 mg/dL (0.6-1.3); GLUCOSE 89 mg/dL (74-106); POTASSIUM 3.7 mmol/L (3.5-5.1); SODIUM SERUM 139 mmol/L (136-145); UREA NITROGEN, BLOOD 56 mg/dL (7-18)
[2021-05-25] MEDS: ENSURE ENLIVE 237 ML LIQUID (VANILLA) PO SCH ×2 (08:27→16:36)
[2021-05-25] MEDS: ASPIRIN 81 MG TAB.CHEW PO SCH (08:27)
[2021-05-25] MEDS: DOXYCYCLINE HYCLATE (100 MG) 100 MG TABLET PO SCH (08:27)
[2021-05-25] MEDS: METOPROLOL TARTRATE 25 MG TABLET PO SCH ×2 (08:28→21:15)
[2021-05-25] MEDS: MUPIROCIN OINT 2% 22 GM TUBE TP SCH (08:40)
[2021-05-25] MEDS: APIXABAN 2.5 MG TABLET PO SCH ×2 (09:00→16:36)
[2021-05-25 10:57] LABS: BAND % (MANUAL) 3 % (0.0-5.0); EOSINOPHILS % (MANUAL) 4 % (0-4); LYMPHOCYTES % (MANUAL) 6 % (16-48); MONOCYTES % (MANUAL) 2 % (0-11.0); MYELOCYTES % 1 % (0-0); NEUTROPHILS % (MANUAL) 84 (42-76)
[2021-05-25 16:00] VITALS: BP 123/76
--- NOTE | 2021-05-25 18:24 | NUR ---
MS RN CLOSING NOTES PATIENT ON BED, RESTING AND A/O X3. ON O2 AT 2LPM VIA NASAL CANNULA TOLERATING WELL. NO SOB NOTED. NOT IN DISTRESS. WITH NO COMPLAINTS OF PAIN OR DISCOMFORT AT THIS TIME. WITH IV ACCESS AT LEFT AC G20 WITH IVF 1/2NS AT 40ML/HR INFUSING WELL. IV SITE IS PATENT AND INTACT. DUE MEDS GIVEN. SAFETY MEASURES IN PLACED. CALL LIGHT WITHIN REACH. BED ON LOWEST LOCKED POSITION, SIDE RAILS UP X2. WILL ENDORSE TO NEXT SHIFT FOR IRENE.
[2021-05-25] MEDS: IV 1/2NS 1000 ML 1,000 ML IV PRN (19:09)
--- NOTE | 2021-05-25 19:10 | NUR ---
RN OPENING NOTES RECEIVED PATIENT ON BED A/O X 3, RESPIRATORY EVEN AND UNLABORED, ON NC AT 2LPM TOLERATING WELL, NO SOB NOTED, NO S/S OF DISTRESS NOTED. PATIENT NOTED WITH RIGHT HAND PERIPHERAL LINE G#22 INTACT PATENT AND FLUSHING WELL. RUNNING WITH 1/2 NS @ 40CC/HR. BED IN LOWEST POSITION LOCKED AND BED ALARM ARMED. WILL CONTINUE TO MONITOR.
[2021-05-25 20:00] VITALS: BP 148/83
[2021-05-26 04:00] VITALS: BP 144/79
--- NOTE | 2021-05-26 07:16 | NUR ---
RN CLOSING NOTES NO SIGNIFICANT CHANGES THROUGH OUT THE NIGHT, RESPIRATORY EVEN AND UNLABORED, ON NC AT 2LPM TOLERATING WELL, NO SOB NOTED, NO S/S OF DISTRESS NOTED. PATIENT NOTED WITH LAC PERIPHERAL LINE G#20 INTACT PATENT AND FLUSHING WELL. RUNNING WITH 1/2 NS @ 40CC/HR. ALL DUE MEDS GIVEN ORDERED. BED IN LOWEST POSITION LOCKED AND BED ALARM ARMED. WILL CONTINUE TO MONITOR.
--- NOTE | 2021-05-26 07:26 | NUR ---
RN OPENING NOTES; PT IN BED RESTING. PT A/OX3 WITH EPISODES OF CONFUSION. PT HAS NO C/O PAIN AT THIS TIME. NO SOB OR DISTRESS NOTED. SKIN IS INTACT. BILATERAL SOFT RESTRAINTS NOTED. LFA #20 NOTED, FLUSHING WELL. ALL SAFETY MEASURES RENDERED, BED LOCKED, IN LOWEST POS. SIDERAILS X2, WITH CALL LIGHT WITHIN REACH. WILL CONTINUE TO MONITOR.
[2021-05-26] MEDS: METOPROLOL TARTRATE 25 MG TABLET PO SCH ×2 (08:22→21:12)
[2021-05-26] MEDS: ASPIRIN 81 MG TAB.CHEW PO SCH (08:22)
[2021-05-26] MEDS: APIXABAN 2.5 MG TABLET PO SCH ×2 (08:22→16:03)
[2021-05-26] MEDS: ENSURE ENLIVE 237 ML LIQUID (VANILLA) PO SCH ×2 (08:23→16:05)
[2021-05-26] MEDS: MUPIROCIN OINT 2% 22 GM TUBE TP SCH (08:29)
[2021-05-26 12:00] VITALS: BP 125/70
[2021-05-26 15:33] LABS: BASOPHILS % (AUTO) 0.4 % (0.0-2.0); EOSINOPHILS % (AUTO) 3.6 % (0.0-6.0); HEMATOCRIT 23 % (39-51); HEMOGLOBIN 7.4 g/dL (13.5-17.5); LYMPHOCYTES # (AUTO) 0.7 K/uL (0.8-4.8); LYMPHOCYTES % (AUTO) 7.3 % (20.0-44.0); MEAN CORPUSCULAR HGB CONC 32 g/dl (31.0-36.0); MEAN CORPUSCULAR VOLUME 88 fL (80-96); MONOCYTES # (AUTO) 0.5 K/uL (0.1-1.30); MONOCYTES % (AUTO) 5.3 % (2.0-12.0); NEUTROPHILS # (AUTO) 8.2 K/uL (1.8-8.9); NEUTROPHILS % (AUTO) 83.4 % (43.0-81.0); PLATELET COUNT (AUTO) 151 K/uL (150-450); RED BLOOD CELL COUNT(AUTO) 2.61 MIL/uL (4.5-6.0); WHITE BLOOD COUNT (AUTO) 9.8 K/uL (4.3-11.0)
[2021-05-26 15:49] LABS: CALCIUM, SERUM 7.5 mg/dL (8.5-10.1); CARBON DIOXIDE 26 mmol/L (21-32); CHLORIDE 107 mmol/L (98-107); CREATININE 1.8 mg/dL (0.6-1.3); GLUCOSE 135 mg/dL (74-106); POTASSIUM 3.8 mmol/L (3.5-5.1); SODIUM SERUM 140 mmol/L (136-145); UREA NITROGEN, BLOOD 48 mg/dL (7-18)
[2021-05-26] MEDS ORDERED: APIX2.5T PO (16:45)
[2021-05-26] MEDS ORDERED: METO25TA20 PO (16:45)
[2021-05-26] MEDS ORDERED: ASPI-1169 PO (16:45)
--- NOTE | 2021-05-26 17:16 | NUR ---
RN NOTES PT HAS DISCHARGED ORDERS TO BE DISCHARGE TO HOME. PT HAS BEEN CALLED SEVERAL TIMES BUT NO RESPONSE. RN WILL CONTINUE TO CALL .
[2021-05-26 17:42] LABS: BAND % (MANUAL) 1 % (0.0-5.0); EOSINOPHILS % (MANUAL) 2 % (0-4); LYMPHOCYTES % (MANUAL) 9 % (16-48); MONOCYTES % (MANUAL) 2 % (0-11.0); NEUTROPHILS % (MANUAL) 86 (42-76)
--- NOTE | 2021-05-26 18:43 | NUR ---
RN CLOSING NOTES; PT A/OX2-3. PT TOLERATING O2 AT 2LPM SATING AT 96-98%. NO C/O PAIN OR SOB AT THIS TIME. ALL MEDICATIONS GIVEN, AND TOLERATED WELL. PT KEPT CLEAN, DRY AND COMFORTABLE. ALL SAFETY MEASURES RENDERED, BED IN LOWEST POS. LOCKED, SIDE RAILSX3 WITH CALL LIGHT WITHIN REACH. NO SIGNIFICANT CHANGES TO PT HEALTH STATUS ON SHIFT. PT TO BE D/C TO HOME BUT CANNOT GET A HOLD OF PT . HAT BLOCKING MACHINE OPERATOR IS ALSO CALLING BUT HAS NOT BEEN ABLE TO REACH HER. ALL PAPERWORK DONE, SIGNED AND IN PT CHART. WILL ENDORSE TO SALES AND EVENTS COORDINATOR RN. PT IN STABLE CONDITION.
[2021-05-26 20:00] VITALS: BP 162/87
--- NOTE | 2021-05-26 20:00 | NUR ---
2000 Received awake in bed watching TV. No complain of SOB or difficulty breathing when asked. Tolerates O2 at 2L NC. HOB elevated for maximum oxygenation. LFA IV access intact and patent when checked. Requires maximum assist with ADLs. Turned and repositioned for skin management and comfort. Call light placed within reach and instructed to call for assistance.
--- NOTE | 2021-05-26 22:30 | NUR ---
2230 Bed bath provided. Linens changed. Patient tolerated procedure well.
[2021-05-26] MEDS: IV 1/2NS 1000 ML 1,000 ML IV PRN (23:31)
--- NOTE | 2021-05-27 02:00 | NUR ---
0200 Awake watching TV. Cont to tolerate O2 at 2L NC. Denies pain when asked. No complain of difficulty breathing. Encouraged to get some sleep. IV fluid infusing to RFA site. No signs of infiltration noted. Repositioned for comfort. HOB kept elevated for maximum oxygenation. Call light placed within reach.
--- NOTE | 2021-05-27 05:30 | NUR ---
0530 Diaper changed due to urinary incontinence. Good pericare rendered. Cont. to tolerate O2 at 2L per NC. No signs of distress noted. Cont to deny pain when asked. With episodes of confusion noted. Redirected with help. Turned and repositioned for skin management and comfort. HOB elevated for maximum oxygenation. Call light placed within reach.
--- NOTE | 2021-05-27 07:07 | NUR ---
RN OPENING NOTES; PT IN BED IN SUPINE POOS. PT A/OX2-3 WITH EPISODES OF CONFUSION. PT HAS NO C/O PAIN AT THIS TIME. NO SOB OR DISTRESS NOTED. SKIN IS INTACT. LFA #20 NOTED, FLUSHING WELL. PT TO BE DISCHARGE TO HOME BUT CANNOT GET A HOLD OF . WORKING WITH CASE MANAGEMENT FOR PROPER DISCHARGE. ALL SAFETY MEASURES RENDERED, BED LOCKED, IN LOWEST POS. SIDERAILS X2, WITH CALL LIGHT WITHIN REACH. WILL CONTINUE TO MONITOR.
[2021-05-27] MEDS: ENSURE ENLIVE 237 ML LIQUID (VANILLA) PO SCH ×2 (07:44→17:43)
[2021-05-27] MEDS: ASPIRIN 81 MG TAB.CHEW PO SCH (08:04)
[2021-05-27] MEDS: METOPROLOL TARTRATE 25 MG TABLET PO SCH ×2 (08:05→21:15)
[2021-05-27] MEDS: APIXABAN 2.5 MG TABLET PO SCH ×2 (08:07→17:11)
[2021-05-27] MEDS: MUPIROCIN OINT 2% 22 GM TUBE TP SCH (08:12)
--- NOTE | 2021-05-27 10:40 | NUR ---
TEACHERS' AIDE NOTES; PT TRANSFERRED TO MED SURG SECOND FLOOR. ALL MORNING MEDICATIONS GIVEN AND TOLERATED WELL. NO SOB, OR DISTRESS NOTED. VITAL SIGNS WNL. REPORT GIVEN TO [facility]. PT LEFT UNIT IN STABLE CONDITION.
[2021-05-27 14:00] VITALS: BP 114/69
--- NOTE | 2021-05-27 15:01 | NUR ---
NURSES NOTES PATIENT TRANSFERRED TO MED SURG 2 FROM [facility], PT IN BED RESTING IN SUPINE POSITION, PT A/OX2-3 WITH EPISODES OF CONFUSION. PT HAS NO C/O PAIN AT THIS TIME. NO SOB OR DISTRESS NOTED. SKIN IS INTACT. LFA #20 NOTED, FLUSHING WELL. PT TO BE DISCHARGE TO HOME AWAITING FOR TO CONFIRM TIME OF MOSAIC TECHNICIAN AND TRANSFER, SS HELPING TO ARRANGE, ALL SAFETY MEASURES IN PLACE, BED WHEELS LOCKED, BED IN LOWEST POSITION, SIDERAILS UP X2, CALL LIGHT WITHIN REACH. WILL CONTINUE TO MONITOR.
--- NOTE | 2021-05-27 19:05 | NUR ---
RN NOTES PATIENT RESTLESS AND FILLED WITH ANXIETY DURING MOST OF DAY SHIFT, ONCE DINNER WAS SERVED PT FELL INTO A DEEP SLEEP, GIVEN 1700 MEDICATIONS WHOLE WITH WATER AND ASKED TO EAT DINNER, HE WANTED FOOD TO STAY AND SAYS HE WILL EAT WHEN HE WAKES UP, HE WAS VERY TIRED FROM BEING STRESSED OUT ALL DAY ABOUT WHEN HE WOULD TRANSFER HOME, HE IS TO TRANSFER 05/28/2021 AT 1000 AM , WILL PICK HIM UP, HE IS TO D/C WITH HIS OXYGEN TANK IN THE ROOM IT IS BLUE WITH THE NC's THAT GO WITH THE DEVICE AND THE TOOL FOR OXYGEN TANKS TO TAKE HOME. PT REPOSITIONED FOR COMFORT AND TO RELIEVE PRESSURE, ABLE TO MAKE NEEDS KNOWN, PRIMARILY ITALIAN SPEAKING, DINNER AT BEDSIDE UNTIL PT WAKES UP TO EAT, WILL ENDORSE OXYGEN AND EQUIPMENT INFORMATION TO ONCOMING RN TO BE SURE TO HAVE PT TAKE WITH HIM DURING TRANSFER HOME.
[2021-05-27 20:00] VITALS: BP 137/87
[2021-05-28] VITALS: BP 122/73
[2021-05-28 04:00] VITALS: BP 128/71
--- NOTE | 2021-05-28 06:51 | NUR ---
CLINICAL CARE COORDINATOR NOTES AWAKE & RESPONSIVE. NOT IN ANY DISTRESS. NO SOB NOTED. DENIES ANY PAIN OR DISCOMFORT AT THIS TIME. WITH IVF INFUSING WELL. AM CARE DONE. MONITORED ACCORDINGLY. CALL LIGHT WITHIN REACH. BED IN LOWEST POSITION. SR UP X 3 WITH BED ALARM ON FOR SAFETY. WILL ENDORSE TO NEXT SHIFT.
--- NOTE | 2021-05-28 07:10 | NUR ---
STRIPER SPRAY GUN NOTES RECEIVED PATIENT ALERT AND ORIENTED WITH NO SIGNS OF DISTRESS. PATIENT ON OXYGEN AT 2-3 LPM VIA NASAL CANULA WITH AWAKE & RESPONSIVE. DENIES ANY PAIN OR DISCOMFORT AT THIS TIME. WITH IV ACCESS ON LEFT FOREARM G 20 WITH IVF INFUSING WELL. CALL LIGHT WITHIN REACH. BED IN LOWEST POSITION. SR UP X 3 WITH BED ALARM ON FOR SAFETY. WILL CONTINUE TO MONITOR PATIENT.
[2021-05-28 08:00] VITALS: BP 133/79
[2021-05-28] MEDS: ENSURE ENLIVE 237 ML LIQUID (VANILLA) PO SCH ×2 (08:00→17:00)
--- NOTE | 2021-05-28 08:10 | NUR ---
FINANCIAL ACCOUNTING ANALYST NOTE PATIENT FOR DISCHARGE PREVIOUSLY ORDERED. AWAITING TRANSPORTATION. HEALTH TEACHING DONE ORDERED, VERBALIZED UNDERSTANDING AND APPRECIATION. COMFORT MEASURES PROVIDED. NOT IN DISTRESS. WILL CONTINUE TO MONITOR PATIENT.
[2021-05-28] MEDS: ASPIRIN 81 MG TAB.CHEW PO SCH (09:15)
[2021-05-28] MEDS: APIXABAN 2.5 MG TABLET PO SCH ×2 (09:16→17:00)
[2021-05-28] MEDS: METOPROLOL TARTRATE 25 MG TABLET PO SCH ×2 (09:16→21:03)
--- NOTE | 2021-05-28 11:15 | NUR ---
BENCH WORKER APPRENTICE NOTE PATIENT DISCHARGED ORDERED, PATIENT PICKED UP BY 2 EMT PERSONNEL, IN STABLE CONDITION. IV ACCESS REMOVED AND COVERED WITH DRY DRESSING. PATIENT WITH HIS OWN CONCENTRATOR AND PORTABLE OXYGEN. BROUGHT HOME WITH HIM. DISCHARGED VIA GURNEY, IN STABLE CONDITION. NOT IN DISTRESS. ENDORSED ACCORDINGLY.
--- NOTE | 2021-05-28 18:00 | NUR ---
MS RN NOTES RECEIVED FROM ER. PATIENT TRANSPORTED ON A GURNEY ACCOMPANIED BY 2 PATIENTS. PATIENT ALERT AND ORIENTED WITH NO SIGNS OF DISTRESS. PATIENT ON OXYGEN AT 2-3 LPM VIA NASAL CANULA WITH AWAKE & RESPONSIVE. DENIES ANY PAIN OR DISCOMFORT AT THIS TIME. WITH IV ACCESS ON ROGHT HAND G 20 WITH IVF INFUSING WELL. CALL LIGHT WITHIN REACH. BED IN LOWEST POSITION. SR UP X 3 WITH BED ALARM ON FOR SAFETY. WILL CONTINUE TO MONITOR PATIENT.
--- NOTE | 2021-05-28 19:00 | NUR ---
HAT PARTS CUTTER MACHINE NOTES PATIENT ALERT AND ORIENTED WITH NO SIGNS OF DISTRESS. PATIENT ON OXYGEN AT 2-3 LPM VIA NASAL CANULA WITH AWAKE & RESPONSIVE. DENIES ANY PAIN OR DISCOMFORT AT THIS TIME. WITH IV ACCESS ON rRIGHT HAND G 20 WITH IVF INFUSING WELL. CALL LIGHT WITHIN REACH. BED IN LOWEST POSITION. SR UP X 3 WITH BED ALARM ON FOR SAFETY. WILL ENDORSE PATIENT FOR CONTINUITY OF CARE.
--- NOTE | 2021-05-28 19:00 | NUR ---
STILL TO PROCURE BLOOD FROM BLOOD BANK PER CLINICAL RESOURCE MANAGER SARA BUT REQUEST FOR BLOOD WAS PLACED. ENDORSED ACCORDINGLY.
[2021-05-28 21:03] VITALS: BP 133/69
--- NOTE | 2021-05-28 21:44 | NUR ---
Pt. is tachy 117-123BPM. Still no blood per lab for transfusion. MD on-call notified and stated repeat CBC at midnight and notify on-call again if HR continues to increase.
== END 2021-05-28 11:15 | disposition home or self-care (01) | DRG 177 ==
LOC: ER 11:01 → TELE-TD 16:27 → TELE1 05-11 15:34 → MEDSG1 05-22 10:17 → MEDSG2 05-27 10:37
PROVIDERS: ADMIT Nurse Practitioner Acute Care; ATTEND Student in an Organized Health Care Education/Training Program
PROC: 5A09357 Assistance with Respiratory Ventilation, Less than 24 Consecutive Hours, Continuous Positive Airway Pressure (ICD-10-PCS; 2021-05-10)
PROC: 05H933Z Insertion of Infusion Device into Right Brachial Vein, Percutaneous Approach (ICD-10-PCS; principal; 2021-05-12)
DX: U07.1 COVID-19 (principal); N17.0 Acute kidney failure with tubular necrosis; J96.01 Acute respiratory failure with hypoxia; J12.82 Pneumonia due to coronavirus disease 2019; I50.43 Acute on chronic combined systolic (congestive) and diastolic (congestive) heart failure; I21.A1 Myocardial infarction type 2; J15.6 Pneumonia due to other Gram-negative bacteria; G92.8 Other toxic encephalopathy; J96.02 Acute respiratory failure with hypercapnia; L03.116 Cellulitis of left lower limb; E87.1 Hypo-osmolality and hyponatremia; E44.0 Moderate protein-calorie malnutrition; L03.115 Cellulitis of right lower limb; I42.9 Cardiomyopathy, unspecified; I48.91 Unspecified atrial fibrillation; E87.5 Hyperkalemia; E86.1 Hypovolemia; R74.01 Elevation of levels of liver transaminase levels; I13.10 Hypertensive heart and chronic kidney disease without heart failure, with stage 1 through stage 4 chronic kidney disease, or unspecified chronic kidney disease; N18.9 Chronic kidney disease, unspecified; I35.2 Nonrheumatic aortic (valve) stenosis with insufficiency
CPT/HCPCS: 31720; 36415; 36600; 71045-TC; 80048-TC; 80053-TC; 80076-TC; 80202-TC; 81001; 82550-TC; 82570-TC; 82728-TC; 82803-TC; 82962-TC; 83615-TC; 83735-TC; 83880; 84100-TC; 84132-TC; 84155-TC; 84300-TC; 84484-TC; 85025-TC; 85378-TC; 85730-TC; 86140-TC; 87040-TC; 87081-TC; 93307-TC; 93970-TC; 94799-TC; A4349; G0378; J0360; J0692; J1100; J1644; J1940; J2060; J2543; J2765; J3370; J3490; J7030; J7040; J7050; J7060; U0003

== ENCOUNTER 2021-05-28 14:09 | Inpatient (IN) | payer OTHER, SELFPAY ==
[~2021-05-28] VITALS: Ht 177.8 cm; Wt 92.1 kg
[2021-05-28] MEDS: PANTOPRAZOLE 40 MG VIAL IV SCH (01:00)
[~2021-05-28 14:09] MED LIST: APIX2.5T PO; ASPI-1169 PO; METO25TA20 PO
--- NOTE | 2021-05-28 14:15 | NUR ---
PT BIBRA 102 FROM HOME C/O SOB AND WEAKNESS STARTED YESTERDAY WAS ADMITTED HERE FOR COVID 3 WEEKS AGO. PT SATTING 85% ON R/A WITH CONGESTION. PUT ON O2 4LPM VIA N/C;SATTING AT 95% & TOLERATING WELL. PT A/OX4. CONNECTED PT TO POX AND MONITOR.
--- NOTE | 2021-05-28 14:36 | NUR ---
R HAND #20G S/L; PATENT AND INTACT. COLLECTED BLOOD AND GIVEN TO LAB IVET.
--- NOTE | 2021-05-28 14:37 | NUR ---
CASHIER OR CHECKER STOCK CLERK AT PT'S BEDSIDE
--- NOTE | 2021-05-28 14:48 | NUR ---
OFFERED PT URINAL; PT NOT ABLE TO URINATE AT THIS TIME. WILL TRY TO COLLECT URINE SAMPLE AGAIN LATER
[2021-05-28 14:52] LABS: BASOPHILS # (AUTO) 0.1 K/uL (0.0-0.2); BASOPHILS % (AUTO) 0.4 % (0.0-2.0); EOSINOPHILS % (AUTO) 1.4 % (0.0-6.0); HEMATOCRIT 21 % (39-51); LYMPHOCYTES # (AUTO) 1.2 K/uL (0.8-4.8); LYMPHOCYTES % (AUTO) 7.6 % (20.0-44.0); MEAN CORPUSCULAR HGB CONC 32 g/dl (31.0-36.0); MEAN CORPUSCULAR VOLUME 90 fL (80-96); MONOCYTES % (AUTO) 6.8 % (2.0-12.0); NEUTROPHILS # (AUTO) 12.8 K/uL (1.8-8.9); NEUTROPHILS % (AUTO) 83.8 % (43.0-81.0); PLATELET COUNT (AUTO) 97 K/uL (150-450); RED BLOOD CELL COUNT(AUTO) 2.34 MIL/uL (4.5-6.0); WHITE BLOOD COUNT (AUTO) 15.2 K/uL (4.3-11.0)
--- NOTE | 2021-05-28 14:54 | NUR ---
PT'S ANNIKA PEREZ [phone]
[2021-05-28 15:18] LABS: CALCIUM, SERUM 7.4 mg/dL (8.5-10.1); CARBON DIOXIDE 23 mmol/L (21-32); CHLORIDE 105 mmol/L (98-107); CREATININE 2.2 mg/dL (0.6-1.3); GLUCOSE 116 mg/dL (74-106); POTASSIUM 4.1 mmol/L (3.5-5.1); SODIUM SERUM 136 mmol/L (136-145); UREA NITROGEN, BLOOD 58 mg/dL (7-18)
[2021-05-28 15:24] LABS: ALANINE AMINOTRANSFERASE 32 U/L (12-78); ALBUMIN 1.8 g/dL (3.4-5.0); ALKALINE PHOSPHATASE 149 U/L (46-116); ASPARTATE AMINOTRANSFERASE 30 U/L (15-37); BILIRUBIN,DIRECT 0.7 mg/dL (0.0-0.2); BILIRUBIN,TOTAL 1.5 mg/dL (0.2-1.0); TOTAL PROTEIN, SERUM 5.6 g/dL (6.4-8.2)
--- NOTE | 2021-05-28 15:29 | NUR ---
LAB CALLED LACTIC ACID 3.5
[2021-05-28 15:36] LABS: HEMOGLOBIN 6.7 g/dL (13.5-17.5)
[2021-05-28 15:57] LABS: BAND % (MANUAL) 1 % (0.0-5.0); EOSINOPHILS % (MANUAL) 1 % (0-4); LYMPHOCYTES % (MANUAL) 8 % (16-48); MONOCYTES % (MANUAL) 2 % (0-11.0); NEUTROPHILS % (MANUAL) 88 (42-76)
[2021-05-28] MEDS ORDERED: MEROPENEM 500 MG in IV NS 0.9% 50 ML IV ONE (16:00)
[2021-05-28] MEDS ORDERED: VANCOMYCIN 1 GM in IV D5W 250 ML IV ONE (16:00)
[2021-05-28] MEDS ORDERED: VANCOMYCIN 1.25 GM in IV D5W 250 ML IV SCH (16:00)
--- NOTE | 2021-05-28 16:15 | NUR ---
RT AT PT'S BEDSIDE FOR ABG
[2021-05-28 16:17] LABS: ABG BASE EXCESS -0.3 mmol/L; ABG PCO2 31.1 mmHg (35.0-45.0); ABG PH 7.486 (7.350-7.450); ABG PO2 69.8 mmHg (75.0-100.0); MetHb 0.1 % (0.0-1.5); SITE, ABG Left Radial; VENT MODE, BG 2LPMNC
--- NOTE | 2021-05-28 16:20 | NUR ---
CONDOMINIUM MANAGER AT PT'S BEDSIDE
--- NOTE | 2021-05-28 16:37 | NUR ---
BED ASSIGNED = [id number]
--- NOTE | 2021-05-28 16:38 | NUR ---
URINE COLLECTED AND SENT TO LAB
--- NOTE | 2021-05-28 17:10 | NUR ---
CALLED [facility] TO GIVE REPORT; WILL TRY AGAIN LATER
[2021-05-28 17:27] LABS: BILIRUBIN,URINE NEGATIVE (NEGATIVE); COLOR,URINE YELLOW (YELLOW); LEUKOCYTE ESTERASE ,URINE NEGATIVE (NEGATIVE); NITRITE, URINE NEGATIVE (NEGATIVE); PROTEIN,URINE TRACE mg/dl (NEGATIVE); UGLUCOSE NEGATIVE (NEGATIVE); UROBILINOGEN,URINE 0.2 EU/dL (0.2)
[2021-05-28 17:36] LABS: WBC,URINE 0-2 /HPF (0-3)
[2021-05-28 17:37] LABS: BACTERIA,URINE RARE /HPF (None Seen); FINE GRANULAR CASTS,URINE Few /LPF (None Seen); SQUAMOUS EPITHELIAL CELL,UR 0-2 /HPF (None Seen); URINE AMORPHOUS URATE Moderate /HPF (None Seen)
--- NOTE | 2021-05-28 18:20 | NUR ---
PT TRANSFERRED TO [facility] 109-1 VIA ACLS PROTOCOL. PT TOLERATING O2 2LPM VIA N/C WELL AT 98%. VSS. PT VERBALLY AGREED TO HAVE BLOOD TRANSFUSION. ENDORSED CARE BY BED SIDE REPORT TO UBALDO SKELTON.
--- NOTE | 2021-05-28 18:24 | NUR ---
MRSA SWAB COLLECT VIA NARE AND SENT TO LAB
[2021-05-28] MEDS ORDERED: ACETAMINOPHEN 650 MG/SUPP.RECT RC PRN (18:30)
[2021-05-28] MEDS ORDERED: CEFEPIME 1 GM in IV D5W 50 ML IV SCH (18:30)
[2021-05-28] MEDS ORDERED: ONDANSETRON HCL/PF 4 MG/2 ML VIAL IVP PRN (18:30)
[2021-05-28] MEDS ORDERED: ALBUTEROL FS 2.5 MG/3 ML VIAL.NEB NEB PRN (19:00)
[2021-05-28] MEDS ORDERED: CEFEPIME 2 GM in IV D5W 100 ML IV SCH (19:00)
[2021-05-28 20:00] VITALS: BP 133/69
[2021-05-28] MEDS: METOPROLOL TARTRATE 25 MG TABLET PO SCH (21:00)
[2021-05-28 22:20] VITALS: BP 117/49
[2021-05-28 22:32] VITALS: BP 117/49
[2021-05-28 22:45] VITALS: BP 111/62
[2021-05-28 23:00] VITALS: BP 119/68
[2021-05-29] VITALS (12 sets, daily range): BP systolic 104–127; BP diastolic 61–79
--- NOTE | 2021-05-29 00:34 | NUR ---
05/28/212099 neopressor scvanned in on other account 209-1 prior to d/c from system. given
[2021-05-29] MEDS ORDERED: DILTIAZEM HCL 50 MG IV IV ONE (05:30)
[2021-05-29] MEDS ORDERED: DILTIAZEM HCL 25 MG IV ONE (05:59)
--- NOTE | 2021-05-29 06:56 | NUR ---
Patient tolerated blood transfusion well overnight. showed afib on monitor. Later in the night HR went to high 130s to high 150s with HR at 170 for few seconds after IV cardizem patient hr went down to 110s. Patient A&Ox2 throughout night. Awake and in no signs of distress.
[2021-05-29 07:19] LABS: BASOPHILS % (AUTO) 0.4 % (0.0-2.0); HEMATOCRIT 22 % (39-51); LYMPHOCYTES # (AUTO) 0.7 K/uL (0.8-4.8); LYMPHOCYTES % (AUTO) 5.5 % (20.0-44.0); MEAN CORPUSCULAR HGB CONC 32 g/dl (31.0-36.0); MEAN CORPUSCULAR VOLUME 85 fL (80-96); MONOCYTES # (AUTO) 0.5 K/uL (0.1-1.30); MONOCYTES % (AUTO) 4.3 % (2.0-12.0); NEUTROPHILS # (AUTO) 10.3 K/uL (1.8-8.9); NEUTROPHILS % (AUTO) 86.8 % (43.0-81.0); PLATELET COUNT (AUTO) 122 K/uL (150-450); RED BLOOD CELL COUNT(AUTO) 2.52 MIL/uL (4.5-6.0); WHITE BLOOD COUNT (AUTO) 11.8 K/uL (4.3-11.0)
--- NOTE | 2021-05-29 07:30 | NUR ---
RN NOTES HGB RESULT OF 6.9 RELAYED TO HOA CHACON.
--- NOTE | 2021-05-29 07:30 | NUR ---
STRIP STAMP STRAIGHTENER OPENING NOTES RECEIVED PATIENT IN BED, AWAKE, PATIENT IS A&O X 2, AGITATED, ON O2 VIA NC AT 2LPM. IN NO ACUTE DISTRESS NOTED. IV ACCESS ON LEFT HAND G#18, PATENT AND FLUSHES WELL, SALINE LOCKED. NO COMPLAINTS OF PAIN AT THIS PAIN. SAFETY PRECAUTIONS IN PLACE: BED ON LOWEST LOCKED POSITION, SIDE RAILS UP X 2, CALL LIGHT WITHIN EASY REACH. WILL CONTINUE TO MONITOR ACCORDINGLY.
[2021-05-29 07:31] LABS: HEMOGLOBIN 6.9 g/dL (13.5-17.5)
--- NOTE | 2021-05-29 08:34 | NUR ---
pcr collected and sent to lab
[2021-05-29] MEDS ORDERED: APIXABAN 2.5 MG TABLET PO SCH (09:00)
[2021-05-29] MEDS ORDERED: CEFEPIME 2 GM in IV D5W 100 ML IV SCH (09:00)
[2021-05-29] MEDS: PANTOPRAZOLE 40 MG VIAL IV SCH ×2 (09:24→20:49)
[2021-05-29] MEDS: METOPROLOL TARTRATE 25 MG TABLET PO SCH ×2 (09:25→20:49)
--- NOTE | 2021-05-29 10:00 | NUR ---
RN NOTES IV ACCESS ON RIGHT HAND REMOVED, STARTED AN IV ACCESS ON LEFT AC G#20, PATENT AND FLUSHES WELL.
[2021-05-29 10:34] LABS: ALANINE AMINOTRANSFERASE 27 U/L (12-78); ALBUMIN 1.5 g/dL (3.4-5.0); ALKALINE PHOSPHATASE 118 U/L (46-116); ASPARTATE AMINOTRANSFERASE 34 U/L (15-37); BILIRUBIN,TOTAL 1.3 mg/dL (0.2-1.0); CALCIUM, SERUM 7.1 mg/dL (8.5-10.1); CARBON DIOXIDE 21 mmol/L (21-32); CHLORIDE 106 mmol/L (98-107); CREATININE 2.3 mg/dL (0.6-1.3); GLUCOSE 112 mg/dL (74-106); POTASSIUM 3.7 mmol/L (3.5-5.1); SODIUM SERUM 137 mmol/L (136-145); TOTAL PROTEIN, SERUM 4.9 g/dL (6.4-8.2); UREA NITROGEN, BLOOD 56 mg/dL (7-18)
[2021-05-29 12:40] LABS: EOSINOPHILS % (MANUAL) 4 % (0-4); LYMPHOCYTES % (MANUAL) 4 % (16-48); MONOCYTES % (MANUAL) 4 % (0-11.0); NEUTROPHILS % (MANUAL) 88 (42-76)
[2021-05-29] MEDS: IV D5/ 0.9% NACL 1,000 ML IV PRN (14:08)
--- NOTE | 2021-05-29 14:39 | NUR ---
RN NOTES FOLLOWED UP BLOOD AVAILABILITY, PER [facility], NO AVAILABLE BLOOD YET. THEY STILL NEED TO REQUEST FOR BLOOD. HOA CHACON NP, MADE AWARE.
[2021-05-29 14:49] LABS: OCCULT BLOOD STOOL POSITIVE (NEGATIVE)
--- NOTE | 2021-05-29 15:22 | NUR ---
RN NOTES RELAYED STOOL OCCULT BLOOD RESULT OF POSITIVE TO HOA CHACON NP.
--- NOTE | 2021-05-29 18:54 | NUR ---
RN NOTES BLOOD PRODUCT AVAILABLE. STARTED TRANSFUSION OF 1 UNIT PRBC. VS CHECKED PRIOR TRANSFUSION. BLOOD PRODUCTS VERIFIED BY 2 RN'S.
--- NOTE | 2021-05-29 18:55 | NUR ---
MANAGER GOVERNMENT CLOSING NOTES PATIENT IN BED, AWAKE, PATIENT IS A&O X 2, AGITATED, ON O2 VIA NC AT 2LPM. IN NO ACUTE DISTRESS NOTED. IV ACCESS ON LEFT HAND G#18, PATENT AND FLUSHES WELL, SALINE LOCKED. IV ACCESS ON LEFT AC ONGOING BLOOD TRANSFUSION OF 1 UNIT PRBC. NO UNTOWARD MANIFESTATIONS NOTED. ON TELE MONITOR SHOWING A-FIB HR AT 120'S. NO COMPLAINTS OF PAIN AT THIS PAIN. SAFETY PRECAUTIONS IN PLACE: BED ON LOWEST LOCKED POSITION, SIDE RAILS UP X 2, CALL LIGHT WITHIN EASY REACH. ALL NEEDS ATTENDED AND MET. DUE MEDS GIVEN ORDERED. Addendum: 05/29/21 at 1900 by KIRT CRUZ RN ENDORSED TO ONCOMING SHIFT FOR IRENE.
--- NOTE | 2021-05-29 20:07 | NUR ---
RN OPENING NOTES Patient is A&O2. Blood transfusion infusing well at this time. VSS. Patient is in no apparent distress. No s/s of adverse reaction. Denies pain or discomfort. Will continue to monitor as per protocol.
[2021-05-30] VITALS: BP 119/67
[2021-05-30 04:00] VITALS: BP 126/68
--- NOTE | 2021-05-30 06:39 | NUR ---
Patient has been A&Ox2 overnight. Tolerated blood transfusion well, tolerating IV fluids also. No signs of distress. Good urine output and x1 brown and soft. Pt. has been Afib on monitor high 90s low 100s.
--- NOTE | 2021-05-30 07:59 | NUR ---
UTILITY MAINTENANCE WORKER OPENING NOTES RECEIVED PATIENT IN BED, AWAKE, A/O X2. PATIENT ON OXYGEN THERAPY AT 2 LPM VIA NASAL CANULA. TELE MONITOR WITH A CURRENT READING OF UNCONTROLLED A-FIB 107. NO COMPLAINS OF PAIN. IV ACCESS AT L HAND G #18 PRESENT AND INTACT AND LAC G #20 INFUSING D5NS @ 60 MLS/HR. SAFETY PRECAUTIONS IN PLACE; BED IN LOW POSITION AND LOCKED, RAILS UP X2, CALL LIGHT WITHIN REACH. WILL CONTINUE TO MONITOR PATIENT.
[2021-05-30 08:00] VITALS: BP 124/68
[2021-05-30 08:19] LABS: BASOPHILS % (AUTO) 0.4 % (0.0-2.0); EOSINOPHILS % (AUTO) 6.6 % (0.0-6.0); HEMATOCRIT 24 % (39-51); HEMOGLOBIN 7.9 g/dL (13.5-17.5); LYMPHOCYTES # (AUTO) 0.5 K/uL (0.8-4.8); LYMPHOCYTES % (AUTO) 6.1 % (20.0-44.0); MEAN CORPUSCULAR HGB CONC 33 g/dl (31.0-36.0); MEAN CORPUSCULAR VOLUME 87 fL (80-96); MONOCYTES # (AUTO) 0.5 K/uL (0.1-1.30); MONOCYTES % (AUTO) 5.9 % (2.0-12.0); NEUTROPHILS # (AUTO) 6.9 K/uL (1.8-8.9); PLATELET COUNT (AUTO) 90 K/uL (150-450); RED BLOOD CELL COUNT(AUTO) 2.77 MIL/uL (4.5-6.0); WHITE BLOOD COUNT (AUTO) 8.5 K/uL (4.3-11.0)
[2021-05-30] MEDS: PANTOPRAZOLE 40 MG VIAL IV SCH ×2 (08:35→20:40)
[2021-05-30] MEDS: METOPROLOL TARTRATE 25 MG TABLET PO SCH ×2 (08:35→20:37)
[2021-05-30 08:46] LABS: CALCIUM, SERUM 7.2 mg/dL (8.5-10.1); CARBON DIOXIDE 19 mmol/L (21-32); CHLORIDE 108 mmol/L (98-107); CREATININE 2.3 mg/dL (0.6-1.3); GLUCOSE 102 mg/dL (74-106); POTASSIUM 3.5 mmol/L (3.5-5.1); SODIUM SERUM 138 mmol/L (136-145); UREA NITROGEN, BLOOD 49 mg/dL (7-18)
[2021-05-30 12:00] VITALS: BP 110/64
[2021-05-30 16:00] VITALS: BP 112/56
[2021-05-30] MEDS: IV D5/ 0.9% NACL 1,000 ML IV PRN (16:50)
--- NOTE | 2021-05-30 19:19 | NUR ---
DRYWALL FINISHER FOREMAN CLOSING NOTES PATIENT REMAINS IN BED, AWAKE, A/O X2. PATIENT ON OXYGEN THERAPY AT 2 LPM VIA NASAL CANULA. TELE MONITOR WITH A CURRENT READING OF UNCONTROLLED A-FIB. NO COMPLAINS OF PAIN DURING SHIFT. IV ACCESS AT L HAND G #18 PRESENT AND INTACT AND LAC G #20 INFUSING D5NS @ 60 MLS/HR. HAD 1 BIG AND 3 SMALL BLACK BOWEL MOVEMENTS DURING THE DAY. ALL NEEDS ATTENDED DURING THE DAY. SAFETY PRECAUTIONS IN PLACE; BED IN LOW POSITION AND LOCKED, RAILS UP X2, CALL LIGHT WITHIN REACH. WILL ENDORSE TO PAINTER MAINTENANCE NURSE FOR IRENE.
--- NOTE | 2021-05-30 19:35 | NUR ---
RN OPENING NOTES RECEIVED PT IN BED, AOx2. ON 2L NASAL CANNULA AND TOLERATING WELL. NO SOB NOTED. NO S/SX OF RESPIRATORY DISTRESS NOTED. TELE MONITOR DETECTS AFIB THAT IS UNCONTROLLED MD AWARE. L HAND #18 RUNNING D5NS @60 ML/HR. SAFETY PRECAUTIONS IN PLACE: BED IN LOWEST, LOCKED POSITION, SIDERAILS UPx2, AND BRAKES ON. TABLE AND CALL LIGHT WITHIN REACH. WILL CONTINUE TO MONITOR.
[2021-05-30 20:00] VITALS: BP 105/74
[2021-05-31] VITALS: BP 131/64
[2021-05-31 04:00] VITALS: BP 125/68
[2021-05-31] MEDS: IV D5/ 0.9% NACL 1,000 ML IV PRN ×2 (05:59→18:26)
--- NOTE | 2021-05-31 06:57 | NUR ---
RN CLOSING NOTES PT IN BED, AOx2. ON 2L NASAL CANNULA AND TOLERATING WELL. NO SOB NOTED. NO S/SX OF RESPIRATORY DISTRESS NOTED. TELE MONITOR DETECTS AFIB THAT IS UNCONTROLLED MD AWARE. L HAND #18 RUNNING D5NS @60 ML/HR. ALL NEEDS MET. PT KEPT CLEAN AND DRY. SAFETY PRECAUTIONS IN PLACE: BED IN LOWEST, LOCKED POSITION, SIDERAILS UPx2, AND BRAKES ON. TABLE AND CALL LIGHT WITHIN REACH. WILL ENDORSE TO ONCOMING SHIFT FOR IRENE.
--- NOTE | 2021-05-31 07:59 | NUR ---
RN OPEN NOTES PT IN BED, AOx2. ON 2L NASAL CANNULA TOLERATING WELL. NO SOB NOTED. NO S/SX OF RESPIRATORY DISTRESS NOTED. TELE MONITOR DETECTS AFIB HR 110, L HAND #18 RUNNING D5NS @60 ML/HR. SAFETY PRECAUTIONS IN PLACE: BED IN LOWEST, LOCKED POSITION, SIDERAILS UPx2, AND BRAKES ON. TABLE AND CALL LIGHT WITHIN REACH. WILL CONTINUE TO MONITOR
[2021-05-31 08:00] VITALS: BP 128/76
[2021-05-31 08:45] LABS: ALANINE AMINOTRANSFERASE 17 U/L (12-78); ALBUMIN 1.6 g/dL (3.4-5.0); ALKALINE PHOSPHATASE 109 U/L (46-116); ASPARTATE AMINOTRANSFERASE 20 U/L (15-37); BILIRUBIN,DIRECT 0.6 mg/dL (0.0-0.2); BILIRUBIN,TOTAL 1.5 mg/dL (0.2-1.0); CARBON DIOXIDE 21 mmol/L (21-32); CHLORIDE 110 mmol/L (98-107); CREATININE 2.2 mg/dL (0.6-1.3); GLUCOSE 114 mg/dL (74-106); POTASSIUM 3.4 mmol/L (3.5-5.1); SODIUM SERUM 140 mmol/L (136-145); TOTAL PROTEIN, SERUM 5.2 g/dL (6.4-8.2); UREA NITROGEN, BLOOD 38 mg/dL (7-18)
[2021-05-31] MEDS: PANTOPRAZOLE 40 MG VIAL IV SCH ×2 (08:45→21:34)
[2021-05-31] MEDS: METOPROLOL TARTRATE 25 MG TABLET PO SCH ×2 (08:45→21:35)
[2021-05-31 08:57] LABS: BASOPHILS % (AUTO) 0.3 % (0.0-2.0); EOSINOPHILS % (AUTO) 7.6 % (0.0-6.0); HEMATOCRIT 24 % (39-51); HEMOGLOBIN 7.9 g/dL (13.5-17.5); LYMPHOCYTES # (AUTO) 0.5 K/uL (0.8-4.8); LYMPHOCYTES % (AUTO) 8.9 % (20.0-44.0); MEAN CORPUSCULAR HGB CONC 32 g/dl (31.0-36.0); MEAN CORPUSCULAR VOLUME 87 fL (80-96); MONOCYTES # (AUTO) 0.5 K/uL (0.1-1.30); MONOCYTES % (AUTO) 7.9 % (2.0-12.0); NEUTROPHILS # (AUTO) 4.5 K/uL (1.8-8.9); NEUTROPHILS % (AUTO) 75.3 % (43.0-81.0); PLATELET COUNT (AUTO) 90 K/uL (150-450); RED BLOOD CELL COUNT(AUTO) 2.81 MIL/uL (4.5-6.0)
[2021-05-31] MEDS ORDERED: POTASSIUM CHLORIDE 20 MEQ TAB.PRT.SR PO SCH (11:00)
--- NOTE | 2021-05-31 11:00 | NUR ---
RN NOTE ONE EPISODE OF BLACK TARRY STOOL DOCTOR NOTIFIED
[2021-05-31 12:00] VITALS: BP 131/64
--- NOTE | 2021-05-31 13:00 | NUR ---
COSTA MAX REMDESIVIR GIVEN AND TOLERATED WELL WILL KEEP MONITORING Addendum: 05/31/21 at 1842 by CHAVO LIRA RN GEOVANNY PT NOTE
[2021-05-31 16:00] VITALS: BP 119/72
--- NOTE | 2021-05-31 18:48 | NUR ---
RN CLOSING NOTES PT RESTING IN BED, AOx2. ON 2L NASAL CANNULA TOLERATING WELL. NO SOB NOTED. NO S/SX OF RESPIRATORY DISTRESS AT THIS TIME, TELE MONITOR DETECTS AFIB HR 120 AT THE MOMENT, L HAND #18 RUNNING D5NS @60 ML/HR. ALL NEEDS MET DURING SHIFT PT KEPT CLEAN AND COMFORTABLE, SAFETY PRECAUTIONS IN PLACE: BED IN LOWEST AND LOCKED POSITION, SIDERAILS UPx2. TABLE AND CALL LIGHT WITHIN REACH. WILL ENDORSE TO LEGAL SUPPORT ASSISTANTCLOTH LAMINATING SUPERVISOR
--- NOTE | 2021-05-31 19:30 | NUR ---
RN OPENING NOTE PATIENT IN BED, EYES CLOSED, EASILY AWAKENED. PATIENT HAS 2L NASAL CANNULA, TOLERATING WELL. PATIENT HAS A L HAND 18 G WITH 60 ML/HR INFUSING WELL. TELE MONITOR READS AFIB 105 BPM. PATIENT ON ISOLATION PRECAUTIONS. NOT IN ANY APPARENT DISTRESS, NO PAIN VERBALIZED AT THIS TIME. SAFETY MEASURES IN PLACE: BED LOCKED AND IN LOWEST POSITION, CALL LIGHT WITHIN REACH, SIDE RAILS UP. WILL MONITOR PATIENT CLOSELY.
[2021-05-31 20:00] VITALS: BP 128/68
[2021-05-31 20:14] LABS: BAND % (MANUAL) 3 % (0.0-5.0); EOSINOPHILS % (MANUAL) 8 % (0-4); LYMPHOCYTES % (MANUAL) 8 % (16-48); MONOCYTES % (MANUAL) 7 % (0-11.0); NEUTROPHILS % (MANUAL) 74 (42-76)
[2021-06-01] VITALS: BP 130/75
[2021-06-01 04:00] VITALS: BP 123/77
[2021-06-01 07:04] LABS: BASOPHILS % (AUTO) 0.3 % (0.0-2.0); EOSINOPHILS % (AUTO) 8.2 % (0.0-6.0); HEMATOCRIT 24 % (39-51); HEMOGLOBIN 7.7 g/dL (13.5-17.5); LYMPHOCYTES # (AUTO) 0.7 K/uL (0.8-4.8); LYMPHOCYTES % (AUTO) 12.2 % (20.0-44.0); MEAN CORPUSCULAR HGB CONC 32 g/dl (31.0-36.0); MEAN CORPUSCULAR VOLUME 87 fL (80-96); MONOCYTES # (AUTO) 0.5 K/uL (0.1-1.30); MONOCYTES % (AUTO) 9.8 % (2.0-12.0); NEUTROPHILS # (AUTO) 3.9 K/uL (1.8-8.9); NEUTROPHILS % (AUTO) 69.5 % (43.0-81.0); PLATELET COUNT (AUTO) 74 K/uL (150-450); RED BLOOD CELL COUNT(AUTO) 2.73 MIL/uL (4.5-6.0); WHITE BLOOD COUNT (AUTO) 5.6 K/uL (4.3-11.0)
--- NOTE | 2021-06-01 07:30 | NUR ---
PT RECEIVED RESTING COMFORTABLY IN BED. NO S/S OR C/O PAIN OR DISTRESS NOTED. SIDE RAILS UP X2, CALL LIGHT LEFT WITHIN REACH. WILL CONTINUE PLAN OF CARE.
--- NOTE | 2021-06-01 07:39 | NUR ---
RN CLOSING NOTE PATIENT IN BED, EYES CLOSED, EASILY AWAKENED. PATIENT HAS 2L NASAL CANNULA, TOLERATING WELL. PATIENT HAS A L HAND 18 G WITH 60 ML/HR INFUSING WELL. TELE MONITOR READS AFIB 105 BPM. PATIENT ON ISOLATION PRECAUTIONS. NOT IN ANY APPARENT DISTRESS, NO PAIN VERBALIZED AT THIS TIME. SAFETY MEASURES IN PLACE: BED LOCKED AND IN LOWEST POSITION, CALL LIGHT WITHIN REACH, SIDE RAILS UP. WILL MONITOR PATIENT CLOSELY. ALL NEEDS MET AND ATTENDED. ALL ORDERS LIANNE OUT. ENDORSED TO DAY SHIFT NURSE FOR IRENE.
[2021-06-01 07:59] LABS: CALCIUM, SERUM 6.9 mg/dL (8.5-10.1); CARBON DIOXIDE 21 mmol/L (21-32); CHLORIDE 110 mmol/L (98-107); GLUCOSE 114 mg/dL (74-106); POTASSIUM 3.4 mmol/L (3.5-5.1); SODIUM SERUM 140 mmol/L (136-145); UREA NITROGEN, BLOOD 30 mg/dL (7-18)
[2021-06-01 08:00] VITALS: BP 123/74
[2021-06-01] MEDS: METOPROLOL TARTRATE 25 MG TABLET PO SCH ×2 (08:55→22:09)
[2021-06-01] MEDS: PANTOPRAZOLE 40 MG VIAL IV SCH ×2 (08:55→22:09)
--- NOTE | 2021-06-01 09:44 | NUR ---
WOUND CARE CONSULT: REVIEWED CHART, NURSING DOCUMENTATION AND PHOTO WHICH INDICATES RASH/REDNESS TO INNER THIGHS. RECOMMENDATIONS MADE FOR SKIN PROTECTION AND CARE. DISCUSSED WITH NURSING STAFF. MD IN AGREEMENT WITH PLAN OF CARE.
[2021-06-01] MEDS ORDERED: Z GUARD REMEDY 4 OZ OINT TP PRN (10:00)
[2021-06-01] MEDS ORDERED: POTASSIUM CL. PREMIX PERIPHER. 50 ML IV SCH (11:00)
[2021-06-01 11:58] LABS: HEMOGLOBIN 7.6 g/dL (13.5-17.5)
[2021-06-01 12:00] VITALS: BP 112/60
[2021-06-01] MEDS: APIXABAN 2.5 MG TABLET PO SCH ×2 (15:47→22:08)
[2021-06-01] MEDS: Z GUARD REMEDY 4 OZ OINT TP SCH (15:47)
[2021-06-01 16:15] VITALS: BP 104/66
[2021-06-01] MEDS: CLOTRIMAZOLE 1% 15 GM TUBE TP SCH (17:51)
--- NOTE | 2021-06-01 18:34 | NUR ---
CHANGE OF SHIFT REPORT PT RESTING COMFORTABLY IN BED. NO S/S OR C/O PAIN OR DISTRESS NOTED. SIDE RAILS UP X2, CALL LIGHT LEFT WITHIN REACH. PT KEPT CLEAN, DRY, AND COMFORTABLE. NO SIGNIFICANT CHANGES SINCE PREVIOUS SHIFT. WILL GIVE REPORT TO PHUONG SKELTON.
--- NOTE | 2021-06-01 19:50 | NUR ---
RN OPENING NOTES, RECEIVED PATIENT IN BED, ALERT, AWAKE, ORIENTED X3, VERBALLY RESPONSIVE. ON 2L VIA NASAL CANNULA AND TOLERATING WELL. IV ACCESS ON IKER MIDLINE RUNNING 60 ML/HR. NO C/O PAIN OR DISCOMFORT. NO ACUTE DISTRESS. ON ISOLATION PRECAUTIONS. ALL SAFETY MEASURES IN PLACE: BED IN LOWEST POSITION AND LOCKED. PLACE CALL LIGHT WITHIN REACH, BOTH SIDE RAILS UP. WILL MONITOR TO MONITOR.
[2021-06-01 20:00] VITALS: BP 134/107
[2021-06-01 20:43] LABS: HEMOGLOBIN 7.7 g/dL (13.5-17.5)
[2021-06-01 21:35] LABS: BAND % (MANUAL) 4 % (0.0-5.0); EOSINOPHILS % (MANUAL) 9 % (0-4); LYMPHOCYTES % (MANUAL) 9 % (16-48); MONOCYTES % (MANUAL) 9 % (0-11.0); NEUTROPHILS % (MANUAL) 69 (42-76)
[2021-06-02] VITALS: BP 117/73
[2021-06-02 04:00] VITALS: BP 125/63
--- NOTE | 2021-06-02 06:40 | NUR ---
RN CLOSING NOTES, PATIENT IN BED, ASLEEP BUT EASILY AROUSABLE, ALERT, ORIENTED X3 AND VERBALLY RESPONSIVE. ON 2L VIA NASAL CANNULA , O2 SAT 99% AND TOLERATING WELL. IV ACCESS ON IKER MIDLINE RUNNING 60 ML/HR. CARDIAC MONITORING SHOWS UNCONTROLLED A-FIB. NO SIGNIFICANT CHANGE NOTED. PT KEPT REMOVING THE LEADS. EXPLAINED THE RISK AND BENEFIT BUT STILL REMOVING. NO C/O PAIN OR DISCOMFORT. NO ACUTE DISTRESS. ON ISOLATION PRECAUTIONS. ALL SAFETY MEASURES IN PLACE: BED IN LOWEST POSITION AND LOCKED. PLACE CALL LIGHT WITHIN REACH, BOTH SIDE RAILS UP. WILL ENDORSE TO MORNING SHIFT NURSE.
--- NOTE | 2021-06-02 06:40 | NUR ---
RN NOTES: ALL MEDICATIONS GIVEN ORDERED AND PT TOLERATED WELL.
[2021-06-02 08:00] VITALS: BP 125/79
[2021-06-02 08:52] LABS: POTASSIUM 3.4 mmol/L (3.5-5.1); SODIUM SERUM 140 mmol/L (136-145)
[2021-06-02 08:53] LABS: CALCIUM, SERUM 6.9 mg/dL (8.5-10.1); CARBON DIOXIDE 21 mmol/L (21-32); CHLORIDE 109 mmol/L (98-107); GLUCOSE 82 mg/dL (74-106); UREA NITROGEN, BLOOD 31 mg/dL (7-18)
[2021-06-02] MEDS: PANTOPRAZOLE 40 MG VIAL IV SCH ×2 (08:56→21:13)
[2021-06-02] MEDS: METOPROLOL TARTRATE 25 MG TABLET PO SCH ×2 (08:56→21:13)
[2021-06-02] MEDS: Z GUARD REMEDY 4 OZ OINT TP SCH (08:57)
[2021-06-02] MEDS: CLOTRIMAZOLE 1% 15 GM TUBE TP SCH ×2 (08:57→17:09)
[2021-06-02] MEDS: APIXABAN 2.5 MG TABLET PO SCH ×2 (08:59→17:07)
--- NOTE | 2021-06-02 09:30 | NUR ---
RN NOTES RECEIVED CALL FROM PAULO CHARGE NURSE; PATIENT FOR RAPID COVID TEST, ORDER NOTED.
--- NOTE | 2021-06-02 10:00 | NUR ---
RN NOTES COVID SPECIMEN OBTAINED AND DELIVERED TO THE LAB.
[2021-06-02] MEDS: IV D5/ 0.9% NACL 1,000 ML IV PRN (10:03)
[2021-06-02 10:12] LABS: BASOPHILS % (AUTO) 0.5 % (0.0-2.0); EOSINOPHILS % (AUTO) 9.5 % (0.0-6.0); HEMATOCRIT 26 % (39-51); HEMOGLOBIN 8.3 g/dL (13.5-17.5); LYMPHOCYTES # (AUTO) 0.8 K/uL (0.8-4.8); LYMPHOCYTES % (AUTO) 12.9 % (20.0-44.0); MEAN CORPUSCULAR HGB CONC 33 g/dl (31.0-36.0); MEAN CORPUSCULAR VOLUME 86 fL (80-96); MONOCYTES # (AUTO) 0.5 K/uL (0.1-1.30); MONOCYTES % (AUTO) 8.7 % (2.0-12.0); NEUTROPHILS # (AUTO) 4.3 K/uL (1.8-8.9); NEUTROPHILS % (AUTO) 68.4 % (43.0-81.0); PLATELET COUNT (AUTO) 90 K/uL (150-450); RED BLOOD CELL COUNT(AUTO) 2.96 MIL/uL (4.5-6.0); WHITE BLOOD COUNT (AUTO) 6.3 K/uL (4.3-11.0)
[2021-06-02] MEDS: ENSURE CLEAR 237 ML LIQUID (MIX BERRY) PO SCH ×2 (12:00→17:00)
--- NOTE | 2021-06-02 15:11 | NUR ---
RN NOTES COVID RAPID NEGATIVE PER LAB.
--- NOTE | 2021-06-02 15:24 | NUR ---
RN NOTES DR. RAMIREZ MADE AWARE OF PATIENT'S ELEVATED HR IN THE 130'S-140'S, UNCONTROLLED A-FIB PER TELE MONITOR. BP STABLE. ORDERS NOTED FROM .
[2021-06-02] MEDS ORDERED: DIGOXIN INJ 0.5 MG/2 ML AMPUL IV ONE (15:30)
[2021-06-02 16:00] VITALS: BP 131/70
--- NOTE | 2021-06-02 19:10 | NUR ---
RN NOTES SPOKE W/ PATIENT'S AND UPDATED W/ CURRENT CONDITION. NOT IN ACUTE DISTRESS, RESTING IN BED, DOZING INTERMITTENTLY. ASSISTED W/ ADLS TOLERATED. SAFETY MEASURES MAINTAINED. WILL ENDORSE TO POWER BUILDER DEVELOPER RN FOR IRENE.
--- NOTE | 2021-06-02 19:45 | NUR ---
TELE/RN OPENING NOTE RECEIVED PATIENT SLEEPING IN BED. ALERT AND ORIENTED X 2-3. ABLE TO MAKE NEEDS KNOWN. DENIES PAIN AT THIS TIME. CONTINUES ON O2 2L VIA NC WITH NO S/SX OF RESPIRATORY DISTRESS NOTED. IV ACCESS TO LEFT UPPER ARM #18G INTACT AND PATENT. CONTINUES ON IVF D5NS @ 60ML/HR. CONTINUES ON IV ABX. CONTINUES ON CLEAR LIQUID DIET WITH NO S/SX OF ASPIRATION NOTED. CALL LIGHT WITHIN REACH. ASPIRATION, FALL AND SAFETY PRECAUTIONS MAINTAINED. WILL CONTINUE TO MONITOR.
[2021-06-02 20:00] VITALS: BP 123/76
[2021-06-02 20:00] LABS: HEMOGLOBIN 8.1 g/dL (13.5-17.5)
[2021-06-03] VITALS: BP 148/73
[2021-06-03 04:00] VITALS: BP 146/75
--- NOTE | 2021-06-03 06:30 | NUR ---
TELE/RN CLOSING NOTE PATIENT CURRENTLY SLEEPING IN BED. ALERT AND ORIENTED X 2-3. ABLE TO MAKE NEEDS KNOWN. DENIES PAIN AT THIS TIME. CONTINUES ON O2 2L VIA NC WITH NO S/SX OF RESPIRATORY DISTRESS NOTED. IV ACCESS TO LEFT UPPER ARM MIDLINE #18G INTACT AND PATENT. CONTINUES ON IVF D5NS @ 60ML/HR. CONTINUES ON IV ABX. CONTINUES ON CLEAR LIQUID DIET WITH NO S/SX OF ASPIRATION NOTED. CALL LIGHT WITHIN REACH. ASPIRATION, FALL AND SAFETY PRECAUTIONS MAINTAINED. WILL ENDORSE PLAN OF CARE TO ONCOMING SHIFT.
[2021-06-03] MEDS: IV D5/ 0.9% NACL 1,000 ML IV PRN (06:53)
[2021-06-03 07:10] LABS: BASOPHILS % (AUTO) 0.2 % (0.0-2.0); EOSINOPHILS % (AUTO) 7.9 % (0.0-6.0); HEMATOCRIT 26 % (39-51); HEMOGLOBIN 8.3 g/dL (13.5-17.5); LYMPHOCYTES # (AUTO) 0.8 K/uL (0.8-4.8); LYMPHOCYTES % (AUTO) 10.4 % (20.0-44.0); MEAN CORPUSCULAR HGB CONC 32 g/dl (31.0-36.0); MEAN CORPUSCULAR VOLUME 86 fL (80-96); MONOCYTES # (AUTO) 0.6 K/uL (0.1-1.30); MONOCYTES % (AUTO) 7.9 % (2.0-12.0); NEUTROPHILS # (AUTO) 5.5 K/uL (1.8-8.9); NEUTROPHILS % (AUTO) 73.6 % (43.0-81.0); RED BLOOD CELL COUNT(AUTO) 2.95 MIL/uL (4.5-6.0); WHITE BLOOD COUNT (AUTO) 7.5 K/uL (4.3-11.0)
--- NOTE | 2021-06-03 07:27 | NUR ---
RN NOTE PATIENT IS IN BED WITH HOB AT SEMI FOWLERS POSITION. PATIENT IS AOX2. PATIENT IS ON 2L NC WITH NO SIGNS OF LABORED BREATHING. IKER MIDLINE IS PATENT AND INTACT. BED IS LOCKED IN THE LOWEST POSITION, 3 GUARD RAILS RAISED, CALL ROTH WITHIN REACH, AND ALL HOSPITAL SAFETY PRECAUTIONS ARE BEING FOLLOWED. WILL CONTINUE TO MONITOR THROUGHOUT SHIFT.
[2021-06-03 07:56] LABS: CALCIUM, SERUM 8.1 mg/dL (8.5-10.1); CARBON DIOXIDE 21 mmol/L (21-32); CHLORIDE 109 mmol/L (98-107); CREATININE 1.9 mg/dL (0.6-1.3); GLUCOSE 91 mg/dL (74-106); POTASSIUM 3.7 mmol/L (3.5-5.1); SODIUM SERUM 140 mmol/L (136-145); UREA NITROGEN, BLOOD 26 mg/dL (7-18)
[2021-06-03 08:00] VITALS: BP 147/81
[2021-06-03] MEDS: ENSURE CLEAR 237 ML LIQUID (MIX BERRY) PO SCH ×3 (08:00→16:32)
[2021-06-03] MEDS: Z GUARD REMEDY 4 OZ OINT TP SCH (09:00)
[2021-06-03] MEDS: CLOTRIMAZOLE 1% 15 GM TUBE TP SCH ×2 (09:00→16:32)
[2021-06-03] MEDS: PANTOPRAZOLE 40 MG VIAL IV SCH ×2 (09:45→22:06)
[2021-06-03] MEDS: METOPROLOL TARTRATE 25 MG TABLET PO SCH ×2 (09:45→22:26)
[2021-06-03] MEDS ORDERED: DIGOXIN 0.125 MG TABLET PO SCH (13:00)
[2021-06-03] MEDS ORDERED: DIGOXIN 0.25 MG TABLET PO SCH (13:00)
[2021-06-03 13:15] LABS: PLATELET COUNT (AUTO) 72 K/uL (150-450)
[2021-06-03 16:00] VITALS: BP 125/73
[2021-06-03 18:07] LABS: EOSINOPHILS % (MANUAL) 4 % (0-4); LYMPHOCYTES % (MANUAL) 10 % (16-48); MONOCYTES % (MANUAL) 6 % (0-11.0); NEUTROPHILS % (MANUAL) 80 (42-76)
--- NOTE | 2021-06-03 18:59 | NUR ---
RN NOTE PATIENT IS IN BED WITH HOB AT SEMI FOWLERS POSITION. PATIENT IS AOX2. PATIENT IS ON 2L NC WITH NO SIGNS OF LABORED BREATHING. IKER MIDLINE IS PATENT AND INTACT. BED IS LOCKED IN THE LOWEST POSITION, 3 GUARD RAILS RAISED, CALL ROTH WITHIN REACH, AND ALL HOSPITAL SAFETY PRECAUTIONS ARE BEING FOLLOWED. WILL ENDORSE TO HYDROGEN TREATER RN.
--- NOTE | 2021-06-03 20:25 | NUR ---
CONTINUITY OF CARE Patient in bed awake. Reports he's cold, made comfortable in bed, provided warm blanket. Afebrile. IKER midline intact, IVF infusing. Tolerating room air. Denies chest pain. Covid PCR positive, Rapid test negative. Contact/Droplet precaution maintained.
[2021-06-03 20:54] LABS: HEMOGLOBIN 8.1 g/dL (13.5-17.5)
[2021-06-03] MEDS ORDERED: METOPROLOL TARTRATE 25 MG TABLET PO SCH (21:00)
[2021-06-03 22:26] VITALS: BP 138/70
[2021-06-04] VITALS: BP 130/86
[2021-06-04] MEDS: IV D5/ 0.9% NACL 1,000 ML IV PRN ×2 (00:38→20:59)
--- NOTE | 2021-06-04 06:43 | NUR ---
CONTINUITY OF CARE Patient is A/O x2 with period of confusion. Oxygen support at 2L via NC, tolerating RA at rest. AFIB uncontrolled in the Tele monitor HR 120's. Denies chest pain. IKER midline intact, ongoing IVF. On Clear liquids diet. No N/V. Afebrile. Covid PCR test positive. Maintained Isolation precaution.
[2021-06-04 07:25] VITALS: BP 127/86
[2021-06-04 08:00] VITALS: BP 135/73
[2021-06-04] MEDS: ENSURE CLEAR 237 ML LIQUID (MIX BERRY) PO SCH ×3 (08:00→16:45)
--- NOTE | 2021-06-04 08:00 | NUR ---
ms rn received on bed ,awake,laert,oriented x 4,not in any form of distress, respirations even and unlabored,no sob noted, lungs are diminished,abdomen soft,positive bowel sounds,deneis pain at this time, will monitor patient.
[2021-06-04] MEDS: PANTOPRAZOLE 40 MG VIAL IV SCH (09:52)
[2021-06-04] MEDS: METOPROLOL TARTRATE 25 MG TABLET PO SCH ×3 (09:53→16:44)
[2021-06-04] MEDS: APIXABAN 2.5 MG TABLET PO SCH ×2 (09:56→16:41)
--- NOTE | 2021-06-04 10:00 | NUR ---
ms anmol am meds given,tolerated well. all needs attended.
[2021-06-04] MEDS: Z GUARD REMEDY 4 OZ OINT TP SCH (11:17)
[2021-06-04] MEDS: CLOTRIMAZOLE 1% 15 GM TUBE TP SCH ×2 (11:17→16:44)
--- NOTE | 2021-06-04 13:00 | NUR ---
ms rn refused pm meds.all needs attended.
--- NOTE | 2021-06-04 14:37 | NUR ---
ms rn on bed, no distress noted.
[2021-06-04 16:00] VITALS: BP 111/62
[2021-06-04] MEDS: PANTOPRAZOLE 40 MG TABLET.DR PO SCH (16:43)
--- NOTE | 2021-06-04 17:44 | NUR ---
ms rn on bed, no distress noted.
[2021-06-04 20:24] VITALS: BP 129/77
[2021-06-05] VITALS: BP 102/59
[2021-06-05 04:00] VITALS: BP 99/62
--- NOTE | 2021-06-05 04:45 | NUR ---
MS SKELTON NOTES PT FOUND IN THE FLOOR. BED ALARMS ON AND ACTIVE. FLOOR DRY AND FREE OF CLUTTER. ASKED PT IF HE TRIED TO USE THE RESTROOM BUT PT DENIES. VSS. ROM OK. ABLE TO MOVE ALL EXTREMITIES OK. PT DENIES ANY PAIN OR DISCOMFORT. PT ALSO DENIES HITTING HEAD SOMEWHERE. PAGED ELEANOR CLEANER TOUCH UP WORKER FOR [employer]. AWAITING FOR RESPONSE. WILL CONTINUE TO MONITOR. Addendum: 06/05/21 at 0521 by GÓMEZ FOOTE RN MAXIMINO SKELTON NOTES NOT MS
--- NOTE | 2021-06-05 05:14 | NUR ---
WELLNESS PROGRAM ADMINISTRATOR NOTES ELEANOR MARTINEZ SUPPLY CHAIN PROCUREMENT MANAGER FOR [employer] CALLED. NOTIFIED HIM RE PT'S FALL AND PT'S CONDITION. NO NEW ORDERS AT THIS TIME. WILL CONTINUE TO MONITOR.
--- NOTE | 2021-06-05 06:50 | NUR ---
ROCK PICKER NOTES AWAKE & RESPONSIVE. NOT IN ANY DISTRESS. NO SOB NOTED. DENIES ANY PAIN OR DISCOMFORT AT THIS TIME. ON TELE AFIB @ 90S WITH MIDLINE PATENT & INTACT. AM CARE DONE. MONITORED ACCORDINGLY. CALL LIGHT WITHIN REACH. BED IN LOWEST POSITION. SR UP X 3 WITH BED ALARM ON FOR SAFETY. WILL ENDORSE TO NEXT SHIFT.
[2021-06-05] MEDS: ENSURE CLEAR 237 ML LIQUID (MIX BERRY) PO SCH (08:00)
--- NOTE | 2021-06-05 08:00 | NUR ---
RN OPENING NOTE PT IN STABLE CONDITION. WILL CONTINUE TO MONITOR.
[2021-06-05] MEDS: PANTOPRAZOLE 40 MG TABLET.DR PO SCH (09:12)
[2021-06-05] MEDS: APIXABAN 2.5 MG TABLET PO SCH (09:20)
[2021-06-05] MEDS: Z GUARD REMEDY 4 OZ OINT TP SCH (09:21)
[2021-06-05] MEDS: CLOTRIMAZOLE 1% 15 GM TUBE TP SCH (09:21)
[2021-06-05] MEDS ORDERED: METO25TA20 PO (10:30)
[2021-06-05] MEDS ORDERED: ALBUT2 NEB (10:30)
[2021-06-05] MEDS ORDERED: PANT40TA49 PO (10:30)
--- NOTE | 2021-06-05 11:02 | NUR ---
RN NOTE REPORT GIVEN TO NURSING CHICKEN HANGER AT [facility].
--- NOTE | 2021-06-05 11:14 | NUR ---
RN NOTE PT DISCHARGED TO [facility]. REPORT GIVEN TO NURSING HOSPICE PLAN ADMINISTRATOR AT FACILITY. PT IN STABLE CONDITION. PT REFUSED SKIN ASSESSMENT PRIOR TO D/C. IV LINES REMOVED. ID BAND REMOVED. EXITCARE EDUCATION UTILIZED AND GIVEN TO EMT. PRESCRIPTIONS GIVEN TO EMT. PT DECLINES VACCINATIONS PRIOR TO D/C. BELONGINGS CHECKED AND LIST SIGNED BY PT. DISCHARGE ACKNOWLEDGEMENT SIGNED BY PT. PT LEFT VIA GURNEY WITH EMT.
[2021-06-05] MEDS ORDERED: METOPROLOL TARTRATE 25 MG TABLET PO SCH (13:00)
== END 2021-06-05 11:09 | DRG 871 ==
LOC: ER 14:10 → TELE2 17:37
PROVIDERS: ADMIT Nurse Practitioner Acute Care; ATTEND Internal Medicine
PROC: 30233N1 Transfusion of Nonautologous Red Blood Cells into Peripheral Vein, Percutaneous Approach (ICD-10-PCS; 2021-05-28)
PROC: 05HC33Z Insertion of Infusion Device into Left Basilic Vein, Percutaneous Approach (ICD-10-PCS; principal; 2021-06-01)
DX: A41.89 Other specified sepsis (principal); U07.1 COVID-19; J96.01 Acute respiratory failure with hypoxia; N17.0 Acute kidney failure with tubular necrosis; E43 Unspecified severe protein-calorie malnutrition; I50.43 Acute on chronic combined systolic (congestive) and diastolic (congestive) heart failure; J12.82 Pneumonia due to coronavirus disease 2019; G92.8 Other toxic encephalopathy; I13.0 Hypertensive heart and chronic kidney disease with heart failure and stage 1 through stage 4 chronic kidney disease, or unspecified chronic kidney disease; I42.9 Cardiomyopathy, unspecified; K92.2 Gastrointestinal hemorrhage, unspecified; I48.19 Other persistent atrial fibrillation; I25.10 Atherosclerotic heart disease of native coronary artery without angina pectoris; N18.9 Chronic kidney disease, unspecified; Z79.899 Other long term (current) drug therapy; Z79.01 Long term (current) use of anticoagulants; D64.9 Anemia, unspecified; R74.01 Elevation of levels of liver transaminase levels; E86.0 Dehydration; E78.5 Hyperlipidemia, unspecified; Z79.82 Long term (current) use of aspirin
CPT/HCPCS: 36410; 36415; 36600; 71045-TC; 80048-TC; 80053-TC; 80076-TC; 80202-TC; 81001; 82272-TC; 82803-TC; 83605-TC; 84484-TC; 85025-TC; 85027-TC; 85730-TC; 86850-TC; 87040-TC; 87081-TC; 87086-TC; 97112-TC; 97530-TC; C9113; C9803; G0378; J0692; J1160; J2185; J3370; J3480; J3490; J7042; J7050; J7060; P9016; U0003